=== PATIENT | female | born 1990 | race Caucasian/White ===

== ENCOUNTER → 2018-12-13 09:10 | Outpatient (CLI) | payer BC, SELFPAY ==
[2018-12-13 08:07] VITALS: BMI 32.4
[2018-12-13 09:50] VITALS: BP 98/31; PULSE 64; RESP 16; TEMP 36.6; O2SAT 98; BMI 26.9
[2018-12-13] MEDS: Dextrose 5%-Lactated Ringers 1,000 ML 999 ML IV (09:53)
[2018-12-13 10:16] LABS: Absolute Lymphocyte Count 1.66 X10^3/ul (0.83-4.51); Absolute Neutrophil Count 5.8 X10^3/uL (2.0-7.7); Basophil# 0.03 X10^3/uL; Basophil% 0.4 % (0-1); Eosinophil# 0.09 X10^3/uL; Eosinophils% 1.1 % (0-5); Hematocrit 38.8 % (37-47); Hemoglobin 13.5 g/dl (12.0-15.0); Lymphocyte # 1.66 X10^3/ul (4.0); Lymphocyte % 20.2 % (19-41); Mean Corp Hgb Conc 34.8 g/gl (32-36); Mean Corpuscular Hgb 30.9 pg (27.0-32.0); Mean Corpuscular Volume 88.8 fL (81-99); Mean Platelet Vol. 10.4 fl (6.2-12.0); Monocyte# 0.64 X10^3/uL; Monocyte% 7.8 % (0-10); Neutrophil # 5.78 X10^3/uL (2.7-7.7); Neutrophil % 70.3 % (47-70); Platelet Count 219 K/mm3 (150-450); RBC Distribution Width CV 12.1 % (11.6-14.6); RBC Distribution Width SD 38.6 fl (35.1-43.9); Red Blood Count 4.37 M/mm3 (4.2-5.4); White Blood Count 8.2 K/mm3 (4.4-11.0)
[2018-12-13 10:19] LABS: POSITIVE COUNT NO; POSITIVE DIFFERENTIAL NO; POSITIVE MORPHOLOGY NO
[2018-12-13] MEDS: Ondansetron 4 MG/2 ML Vial IV (10:53)
[2018-12-13 11:35] LABS: HIV - WCH Non-Reactive (Nonreactive); Rubella IgG 121.6 IU/mL
[2018-12-13 15:19] LABS: Chlamydia Trachomatis by PCR Negative (Negative); Neisserai gonorrhoeae by PCR Negative (Negative); Probe Check PASS; Sample Adequacy Control PASS; Specimen Processing Control PASS
[2018-12-14 15:25] LABS: HEPATITIS B SURFACE AG Negative (Negative)
[2018-12-17 07:38] LABS: Rapid Plasmin Reagin (RPR) NONREACTIVE (NONREACTIVE)
== END ==
LOC: LAB 09:41 → MEDOUTP 09:42
PROVIDERS: Family Provider Internal Medicine; PCP Internal Medicine; Referring Provider Obstetrics & Gynecology; Visit Provider Obstetrics & Gynecology
DX: O26.891 Other specified pregnancy related conditions, first trimester (principal); E86.0 Dehydration; Z3A.00 Weeks of gestation of pregnancy not specified; Z34.81 Encounter for supervision of other normal pregnancy, first trimester
CPT/HCPCS: 96361; 96374; 36415; 85025; 86592; 86703; 86762; 86850; 86900; 87086; 87088; 87340; 87491; 87591; A4216; J2405

== ENCOUNTER → 2018-12-13 09:32 | Outpatient (CLI) | payer BC, SELFPAY ==
[2018-12-13 08:07] VITALS: BMI 32.4
[2018-12-13 09:41] VITALS: BP 98/31; PULSE 64; RESP 16; TEMP 36.6; O2SAT 98; BMI 26.9
== END ==
PROVIDERS: Family Provider Internal Medicine; PCP Internal Medicine; Visit Provider Obstetrics & Gynecology
DX: E86.0 Dehydration (principal)

== ENCOUNTER → 2019-01-05 12:13 | Outpatient (CLI) | payer BC, SELFPAY ==
[2018-12-13 09:50] VITALS: BMI 26.9
== END ==
PROVIDERS: Family Provider Internal Medicine; PCP Internal Medicine; Referring Provider Obstetrics & Gynecology; Visit Provider Obstetrics & Gynecology
DX: Z34.81 Encounter for supervision of other normal pregnancy, first trimester (principal); Z31.430 Encounter of female for testing for genetic disease carrier status for procreative management
CPT/HCPCS: 36415

== ENCOUNTER → 2019-02-04 14:17 | Outpatient (CLI) | payer BC, SELFPAY ==
[2019-01-10 08:32] VITALS: BMI 26.9
[2019-02-04] MEDS: Dextrose 5%-Lactated Ringers 1,000 ML 999 ML IV (14:41)
[2019-02-04] MEDS: Ondansetron 4 MG/2 ML Vial IV (14:45)
[2019-02-04 14:47] VITALS: BP 92/49; PULSE 76; RESP 16; TEMP 36.3; O2SAT 98; BMI 28.2
== END ==
PROVIDERS: Family Provider Internal Medicine; PCP Internal Medicine; Visit Provider Obstetrics & Gynecology
DX: E86.0 Dehydration (principal)
CPT/HCPCS: 96361; 96374; A4216; J2405

== ENCOUNTER → 2019-02-08 16:03 | Outpatient (CLI) | payer BC, SELFPAY ==
[2019-02-08 15:44] VITALS: BMI 28.2
== END ==
PROVIDERS: Family Provider Internal Medicine; PCP Internal Medicine; Referring Provider Nurse Practitioner Women's Health; Visit Provider Nurse Practitioner Women's Health
DX: Z36.9 Encounter for antenatal screening, unspecified (principal)
CPT/HCPCS: 36415

== ENCOUNTER → 2019-05-04 | Outpatient (CLI) | payer BC, SELFPAY ==
[2019-05-04 14:56] VITALS: BMI 28.2
[2019-05-04 17:23] LABS: Absolute Lymphocyte Count 1.88 X10^3/ul (0.83-4.51); Absolute Neutrophil Count 5.8 X10^3/uL (2.0-7.7); Basophil# 0.04 X10^3/uL; Basophil% 0.5 % (0-1); Eosinophil# 0.25 X10^3/uL; Eosinophils% 2.9 % (0-5); Hematocrit 34.8 % (37-47); Hemoglobin 12.1 g/dl (12.0-15.0); Lymphocyte # 1.88 X10^3/ul (4.0); Lymphocyte % 21.7 % (19-41); Mean Corp Hgb Conc 34.8 g/gl (32-36); Mean Corpuscular Hgb 31.8 pg (27.0-32.0); Mean Corpuscular Volume 91.3 fL (81-99); Mean Platelet Vol. 10.2 fl (6.2-12.0); Monocyte# 0.63 X10^3/uL; Monocyte% 7.3 % (0-10); Neutrophil # 5.81 X10^3/uL (2.7-7.7); Neutrophil % 66.9 % (47-70); Platelet Count 177 K/mm3 (150-450); RBC Distribution Width CV 13.1 % (11.6-14.6); RBC Distribution Width SD 42.4 fl (35.1-43.9); Red Blood Count 3.81 M/mm3 (4.2-5.4); White Blood Count 8.7 K/mm3 (4.4-11.0)
[2019-05-04 17:48] LABS: POSITIVE COUNT NO; POSITIVE DIFFERENTIAL NO; POSITIVE MORPHOLOGY NO
[2019-05-04 17:53] LABS: Glucose Challenge Gest 1H 50g 142 mg/dL (70-140)
== END | disposition home or self-care (01) ==
LOC: LAB 15:37
PROVIDERS: Family Provider Internal Medicine; PCP Internal Medicine; Referring Provider Obstetrics & Gynecology; Visit Provider Obstetrics & Gynecology
DX: Z34.93 Encounter for supervision of normal pregnancy, unspecified, third trimester (principal)
CPT/HCPCS: 36415; 82950; 85025

== ENCOUNTER → 2019-05-06 | Outpatient (CLI) | payer BC, SELFPAY ==
[2019-05-04 14:56] VITALS: BMI 28.2
[2019-05-06 08:41] LABS: Glucose GTT-Gestation. Fasting 77 mg/dL (<105)
[2019-05-06 09:08] LABS: Glucose GTT-Gestational 1 Hr 158 mg/dL (<190)
[2019-05-06 09:52] LABS: Glucose GTT-Gestational 2 Hr 130 mg/dL (<165)
[2019-05-06 11:33] LABS: Glucose GTT-Gestational 3 Hr 117 L (<145)
== END | disposition home or self-care (01) ==
LOC: LAB 06:46
PROVIDERS: Nurse Practitioner Women's Health; Family Provider Internal Medicine; PCP Internal Medicine; Referring Provider Obstetrics & Gynecology; Visit Provider Obstetrics & Gynecology
DX: O99.810 Abnormal glucose complicating pregnancy (principal); Z3A.00 Weeks of gestation of pregnancy not specified
CPT/HCPCS: 36415; 82951; 82952

== ENCOUNTER → 2019-06-29 | Outpatient (CLI) | payer BC, SELFPAY ==
[2019-06-15 12:03] VITALS: BMI 28.2
--- NOTE | 2019-06-29 07:50 | US_ITS ---
STUDY: SECOND AND THIRD TRIMESTER OBSTETRICAL ULTRASOUND - LIMITED REASON FOR EXAM: Female, 29 years old. Routine survey. LMP: October 19, 2018. PRIOR ULTRASOUND: None. TECHNIQUE: Transabdominal TECHNICAL QUALITY: Adequate. FINDINGS: There is a single intrauterine fetus. The fetus is in a cephalic presentation. There is demonstrated cardiac activity with a heart rate of 143 bpm. There is a normal amniotic fluid volume. The largest amniotic fluid pocket measures 3.9 cm x 7.2 cm. The amniotic fluid index (ANUJ) is 14.77 cm. The placenta is anterior in location and is not low lying. There are Grade 1 placental changes. The cervix measures 4.1 cm in length. BIOMETRY: BPD: 8.99 cm: 36 weeks, 3 days HC: 32.16 cm: 36 weeks, 3 days AC: 34.66 cm: 38 weeks, 4 days FL: 7.01 cm: 36 weeks, 0 days Age by LMP: 36 weeks, 2 days. JESUS by LMP: July 26, 2019. age by prior US: 36 weeks, 2 days. JESUS by prior US: July 26, 2019. age by current US: 36 weeks, 6 days. JESUS by current US: July 21, 2019. Estimated weight: 3213 grams, +/- 464 grams, 85 percentile. US/OB Limited With Biometrics IMPRESSION: Single live intrauterine gestation with a mean gestational age of 36 weeks and 2 days. The measurements obtained today fall within the normal expected range. Electronically Signed: Salvador Zhao, at 10:02 EDT , Service support ,
== END | disposition home or self-care (01) ==
LOC: OPUS 07:48
PROVIDERS: Family Provider Internal Medicine; PCP Internal Medicine; Referring Provider Nurse Practitioner Women's Health; Visit Provider Nurse Practitioner Women's Health
DX: Z87.59 Personal history of other complications of pregnancy, childbirth and the puerperium (principal)
CPT/HCPCS: 76816

== ENCOUNTER → 2019-07-01 | Outpatient (CLI) | payer BC, SELFPAY ==
[2019-07-01 15:32] VITALS: BMI 28.2
== END | disposition home or self-care (01) ==
LOC: LABSPEC 16:44
PROVIDERS: Family Provider Internal Medicine; PCP Internal Medicine; Referring Provider Obstetrics & Gynecology; Visit Provider Obstetrics & Gynecology
DX: O09.90 Supervision of high risk pregnancy, unspecified, unspecified trimester (principal); Z3A.00 Weeks of gestation of pregnancy not specified
CPT/HCPCS: 87081

== ENCOUNTER 2019-07-15 23:55 | Inpatient (IN) | payer BC, SELFPAY ==
[2019-06-15 12:03] VITALS: BMI 28.2
[2019-07-12 09:22] VITALS: BMI 36.0
[2019-07-15 23:46] VITALS: BMI 36.2
[2019-07-16] MEDS: Lactated Ringers 1,000 ML 50 ML IV (00:05)
[2019-07-16] MEDS: Lactated Ringers 500 ML 999 ML IV (00:15)
[2019-07-16 00:22] LABS: Absolute Lymphocyte Count 2.34 X10^3/uL (0.83-4.51); Absolute Neutrophil Count 6.1 X10^3/uL (2.0-7.7); Basophil# 0.05 X10^3/uL; Basophil% 0.5 % (0-1); Eosinophil# 0.24 X10^3/uL; Eosinophils% 2.5 % (0-5); Hemoglobin 12.3 g/dL (12.0-15.0); Lymphocyte # 2.34 X10^3/ul (4.0); Lymphocyte % 24.1 % (19-41); Mean Corp Hgb Conc 34.2 g/dL (32-36); Mean Corpuscular Hgb 30.8 pg (27.0-32.0); Mean Corpuscular Volume 90.2 fL (81-99); Monocyte# 0.93 X10^3/uL; Monocyte% 9.6 % (0-10); NRBC Flagged by Analyzer 0 % (0-5); Neutrophil # 6.06 X10^3/uL (2.7-7.7); Neutrophil % 62.5 % (47-70); Platelet Count 142 K/mm3 (150-450); RBC Distribution Width CV 12.5 % (11.6-14.6); RBC Distribution Width SD 40.9 fl (35.1-43.9); Red Blood Count 3.99 M/mm3 (4.2-5.4); White Blood Count 9.7 K/mm3 (4.4-11.0)
[2019-07-16] MEDS: fentaNYL-bupivacaine (epidural) 100 ML BAG EPIDURAL (01:14)
[2019-07-16] MEDS: Oxytocin 30 units/NS 500 ml 30 UNITS/500 ML IV.SOLN 334 UNITS IV (02:28)
--- NOTE | 2019-07-16 03:21 | PCM.HP.OB ---
- Problem List (1) Active labor at term Status: Acute (2) Contraception management Status: Acute Qualifiers: Comment: IUD 6 wk pp. No prior auth needed (3) Abnormal glucose affecting Status: Acute Comment: normal 3 hr. GTT (4) Status: Acute Qualifiers: Comment: NIPT- low risk, horizon- neg. AFP-negative. normal anatomy (5) Supervision of high-risk Status: Acute Qualifiers: Comment: PRR JESUS 07/26/19 PC [place] Gil (6) History of oligohydramnios Status: Acute Comment: 36 week ultrasound (7) Nausea/vomiting in Status: Acute Comment: PRN reglan and meclizine, PRN zofran, failed phenergan. discussed interaction with zoloft- will alternate zofran and reglan. would try compaine next if no improvement. History Date of Admission: 07/16/19 Final JESUS: 07/26/19 Gestational age: 38 Weeks and 4 Days History of this : This is a 29 year-old, at 38 weeks gestational age since in active labor 5 cm dilated with spontaneous rupture of membranes. Patient does have regular contractions and no vaginal bleeding and good movement. Patient has had an uncomplicated .. Medical History: Medical History (Last Reviewed 07/12/19 @ 09:22 by Quin Lopez) Abnormal Pap smear of cervix R87.619 Surgical History: Surgical History (Last Reviewed 07/12/19 @ 09:22 by Quin Lopez) History of wisdom tooth extraction, class II edentulism K08.492 Allergies egg Allergy (Verified 07/15/19 23:43) Swelling Home Medications: Home Medications vitamin#30 30 mg iron-10 mg iron-folic acid 1 mg-omg3 capsule 1 cap PO DAILY cap 12/13/18 sertraline 100 mg tablet 125 mg PO DAILY 12/13/18 ranitidine 150 mg tablet 150 mg PO BID #60 tab 04/06/19 metoclopramide 10 mg tablet 10 mg PO TID PRN #60 tab 05/31/19 Meclizine HCl 25 mg PO DAILY 07/15/19 Smoking Status: Never smoker Alcohol: None Number of Fetus(es): 1 NST - FHR Rate Baby A Baseline: 130 Variability:: Moderate Accelerations:: 15 x 15 Decelerations:: None NST Reactive:: Yes FHR Category:: Category I - q 2-3 History Past Pregnancies: Past Pregnancies Pregancy History 2 Elective abortions Hx Para 1 Spontaneous abortions Hx # Term Pregnancies 1 Ectopic pregnancies Hx # Pregnancies Multiple births # of living children 1 Past Pregnancies Del. Date Name GA/Weeks Outcome Route Bth Weight [facility] 2016 [place] 36 live - full term 5lbs 1 ounces Female RAIN Delivery Date: On 12/13/18 @ 08:26 Jacqueline Alexander oligo Labs: Mom's Labs & Results 07/16/19 07/16/19 00:05 00:05 WBC 9.7 RBC 3.99 L Hgb 12.3 Hct 36.0 L MCV 90.2 MCH 30.8 MCHC 34.2 RDW Std Deviation 40.9 RDW Coeff of Reynaldo 12.5 Plt Count 142 L MPV 11.0 Immature Gran % (Auto) 0.800 Neut % (Auto) 62.5 Lymph % (Auto) 24.1 [place] % (Auto) 9.6 Eos % (Auto) 2.5 Baso % (Auto) 0.5 Absolute Neuts (auto) 6.1 Absolute Lymphs (auto) 2.34 Nucleated RBC % 0 Blood Type B POSITIVE Antibody Screen NEGATIVE Course Did the patient receive Yes care? Labs Blood Type: B RH: POSITIVE RPR/VDRL/Syphilis Nonreactive Rubella status Immune HbSAg Negative Date Done: 12/13/18 Chlamydia Negative Gonorrhea Negative HIV/AIDS Non-Reactive Group B Strep: Negative Current Obstetrical History Gestational Diabetes No Incompetent Cervix No Infertility No IUGR No Macrosomia No Hypertension/Pre-eclampsia No Placenta Previa/Abruption No PTL/PROM No Uterine anomaly No Oligohydramnios No Polyhydramnios No Multiple gestation No Past Medical History Asthma No Diabetes No Hypertension No Heart disease No Mitral valve prolapse No Neurologic/Seizure disorder/ No Migraines Kidney disease No Liver disease No Varicosities No Clotting disorders/Hx of DVT No Thyroid Dysfunction No Other medical diseases No Psychiatric disorders No Major trauma No Abnormal PAP smear Yes: history 4-5 years ago Sleep apnea No Mammogram in the last 2 years No Social History Marital Status: Alleged father Gil Hx Smoking No Smoking Status Never smoker Expected Delivery Method: Spontaneous Vaginal Review of Systems Constitutional: Denies: Fever, Malaise Eyes: Denies: Blurred vision, Vision Change HEENT: Denies: Head Aches, Visual Changes Cardiovascular: Denies: Chest Pain, Palpitations Respiratory: Denies: Cough, Shortness of Breath, Wheezing Gastrointestinal: Denies: Abdominal Pain, Diarrhea, Nausea, Vomiting Genitourinary: Denies: Dysuria, Hematuria Gynecological: Reports: Vaginal discharge Musculoskeletal: Denies: Joint Pain, Muscle pain Skin: Denies: Lesions, Rash Neurological: Denies: Blurred vision, Focal weakness, Headaches Psychiatric: Denies: Anxiety, Depression Endocrine: Denies: Heat/ Cold Intolerance Hematologic/ Lymphatic: Denies: Easy Bruising, Easy Bleeding Physical Exam General: Alert, Cooperative, No apparent distress HEENT: Atraumatic, Normocephalic. Negative for: Thyromegaly, Lymphadenopathy Cardiovascular: Regular rate Lungs: Normal air movement Abdomen: Soft, Non Tender, Gravid Neurological: Deep Tendon Reflexes 2+/4 and Symmetrical, Neuro grossly intact. Negative for: Clonus STEEPLE JACK: Normal external genitalia. Negative for: Vulvar lesions Estimated gestational size: Appropriate for gestational size Presentation: Cephalic Cervix Dilation (cm): 5 Assessment/Plan All Active Problems (Last Reviewed 07/12/19 @ 09:22 by Quin Lopez) Active labor at term (Acute) Contraception management (Acute) Abnormal glucose affecting (Acute) Hypotension (Acute) (Acute) Supervision of high-risk (Acute) History of oligohydramnios (Acute) Nausea/vomiting in (Acute) This is a 29 year-old, at 38 weeks gestational age resents in active labor. Patient presents IAL, plan expectant management for , pitocin PRN if needed. Pain management: Plans epidural. GBS negative. Management of any complications: None I have reviewed the [facility] and made any clinically relevant updates.
--- NOTE | 2019-07-16 03:24 | PCM.OPRPT ---
Problem List (1) Active labor at term Status: Acute (2) Contraception management Status: Acute Qualifiers: Comment: IUD 6 wk pp. No prior auth needed (3) Abnormal glucose affecting Status: Acute Comment: normal 3 hr. GTT (4) Status: Acute Qualifiers: Comment: NIPT- low risk, horizon- neg. AFP-negative. normal anatomy (5) Supervision of high-risk Status: Acute Qualifiers: Comment: PRR JESUS 07/26/19 PC [place] Gil (6) History of oligohydramnios Status: Acute Comment: 36 week ultrasound (7) Nausea/vomiting in Status: Acute Comment: PRN reglan and meclizine, PRN zofran, failed phenergan. discussed interaction with zoloft- will alternate zofran and reglan. would try compaine next if no improvement. Vaginal Delivery Maternal Presentation: Active Labor 38 week active labor Amniotic Membrane Rupture Type: Spontaneous Amniotic Fluid Description: Clear Final JESUS: 07/26/19 Gestational age: 38 Weeks and 4 Days Date of Procedure: 07/16/19 Pre-Operative Diagnosis: ial Post-Operative Diagnosis: same Surgery/ Procedure Performed: Spontaneous Vaginal Delivery Type of Anesthesia: Epidural, Pudendal block with 1% lidocaine Description of Procedure: Patient progressed quickly and did receive an epidural but it was inadequate and therefore the vagina was prepped and pudendal block was placed. Bilateral ischial spines were located and 2 cm medial and posterior through the sacrospinous ligament 10 cc of lidocaine was injected bilaterally using Howard trumpet to guide application. Patient began pushing and delivered the head in the ASHLEY presentation. The head was delivered atraumatically. The anterior and posterior shoulders delivered without complication followed by the rest of the and the was placed on the maternal abdomen. Delayed cord clamping was employed for approximately 60 seconds. Cord was clamped and cut and gentle traction was applied to the cord and the placenta delivered spontaneously immediately following it was noted to be intact with three-vessel cord. The perineum and vagina were inspected and noted to have no laceration. EBL was 300 cc. Patient and infant tolerated delivery well. Presentation: ASHLEY Placental Delivery Description: Spontaneous Placenta Disposition: [facility] Cord Vessel Description: 3 Vessels Cord Entanglement: None Estimated Blood Loss: 300 Infant A gender: Female Episiotomy Description: None Laceration: None Medications given after delivery: IV Pitocin Complications: None
[2019-07-16] MEDS: 0.9% Saline Lock 10 ML Syringe IV (05:40)
[2019-07-16 10:00] VITALS: BP 100/59; PULSE 57; RESP 20; TEMP 37.1; O2SAT 97
[2019-07-16] MEDS: Senna/Docusate Sodium 1 Tablet PO (10:24)
[2019-07-16] MEDS: Sertraline 50 MG Tablet 125 MG PO (10:25)
[2019-07-16] MEDS: Prenatal Vits Tablet 1 TABLET PO (10:25)
--- NOTE | 2019-07-16 11:30 | NURSING ---
Baby transferred to Special care nursery for high respirations.
[2019-07-16 12:50] VITALS: BP 114/59; PULSE 69; RESP 20; TEMP 36.6; O2SAT 97
[2019-07-16 17:30] VITALS: BP 111/59; PULSE 72; TEMP 36.7; O2SAT 96
[2019-07-16 19:31] VITALS: BP 116/69; PULSE 72; RESP 18; TEMP 36.3
--- NOTE | 2019-07-16 19:40 | NURSING ---
Mother transferred to room 3
[2019-07-17 00:50] VITALS: BP 90/47; PULSE 61; RESP 18; TEMP 36.6
--- NOTE | 2019-07-17 05:44 | PCM.PN.OB ---
Patient Problems: Active and Suspected Problems (Last Reviewed 07/12/19 @ 09:22 by Quin Lopez) Active labor at term (Acute) Subjective: doing well no complaints pain controlled no CP SOB N V ambulating well tolerating po lochia moderate, going well - Physical Exam General: Alert, Oriented x3 Vital Signs Temp Pulse Resp BP Pulse Ox 97.8 F 61 18 90/47 L 96 07/17/19 00:50 07/17/19 00:50 07/17/19 00:50 07/17/19 00:50 07/16/19 17:30 Oxygen Delivery Method Room Air Weight: 224 lb 8 oz Body Mass Index (BMI) 36.2 Intake and Output for Last 24 Hours 07/15/19 07/16/19 07/17/19 23:59 23:59 23:59 Intake Total 1351.16 / 1351.16 Balance 1351.16 / 1351.16 Medical Necessity - Tobacco Use Smoking Status: Never smoker Assessment/Plan All Active Problems (Last Reviewed 07/12/19 @ 09:22 by Quin Lopez) Active labor at term (Acute) Contraception management (Acute) Abnormal glucose affecting (Acute) Hypotension (Acute) (Acute) Supervision of high-risk (Acute) History of oligohydramnios (Acute) Nausea/vomiting in (Acute) s/p PPD # 1 1. routine post delivery care 2. breast feeding- support given 3. rh positive 4. rubella immune
--- NOTE | 2019-07-17 05:45 | DCINST_ITS ---
Discharge Diet: No Restrictions Discharge Activity: Return to Normal Activity, May not drive while taking narcotic pain medications., May Shower May resume sexual activity in: 4-6 weeks Call your doctor if your incision/area has: Continuous Slow Oozing, Sudden Increased Bleeding, Increased Pain/ Swelling, Increased Redness, Foul Smelling Discharge Additional Instructions: If you experience any of the following, contact your healthcare provider. * Bleeding that soaks a pad every hour for 2 hours * Fever 100.4 or higher * Unrelieved incision or abdominal pain * Swelling, redness, discharge or bleeding from your incision or episiotomy site * Your incision begins to separate * Problems urinating (including inability to urinate or burning while urinating). * Visual changes * Severe headache * Flu-like symptoms * Pain or redness in one of both of your breasts * Pain, warmth, tenderness or swelling in your legs, especially the calf area * Frequent nausea and vomiting * Symptoms of depression or anxiety If you experience any of the following, call 911 or go to the nearest Emergency Room. * Chest pain * Problems breathing * Seizure activity * Partial or complete paralysis of a body part, slurred speech, weakness or drooping of the face, or a sudden inability to walk or hold your balance Allergies/Adverse Reactions: Allergies egg Allergy (Verified 07/15/19 23:43) Swelling Medications to take at Discharge vitamin#30 30 mg iron-10 mg iron-folic acid 1 mg-omg3 capsule 1 cap PO DAILY cap 12/13/18 sertraline 100 mg tablet 125 mg PO DAILY 12/13/18 ranitidine 150 mg tablet 150 mg PO BID #60 tab 04/06/19 metoclopramide 10 mg tablet 10 mg PO TID PRN #60 tab 05/31/19 Meclizine HCl 25 mg PO DAILY 07/15/19 Please Follow Up With: Jacqueline Alexander MD - [phone] When: Call to make an appointment with your doctor in 6 weeks. If you had elevated Blood pressure or 4th degree laceration you will need to be seen in 2 weeks. Primary Care Physician: Jimena Iglesias MD [Primary Care Provider] - Test Results: Test results from this visit will be discussed in further detail at your follow- up appointment, if applicable.
[2019-07-17 09:30] VITALS: BP 118/56; PULSE 79; RESP 16; TEMP 36.4; O2SAT 99
[2019-07-17] MEDS: Sertraline 50 MG Tablet 125 MG PO (10:04)
[2019-07-17 13:06] VITALS: BP 111/54; PULSE 63; RESP 16; TEMP 37.2; O2SAT 99
[2019-07-17 21:30] VITALS: BP 113/56; PULSE 67; RESP 16; TEMP 36.8
[2019-07-18 02:30] VITALS: BP 120/71; PULSE 60; RESP 16; TEMP 36.4
[2019-07-18 08:10] VITALS: BP 108/54; PULSE 58; RESP 14; TEMP 36.6
--- NOTE | 2019-07-18 08:25 | PCM.PN.OB ---
Patient Problems: Active and Suspected Problems (Last Reviewed 07/12/19 @ 09:22 by Quin Lopez) Active labor at term (Acute) Subjective: doing well no complaints pain controlled no CP SOB N V ambulating well tolerating po lochia moderate, going well - Physical Exam General: Alert, Oriented x3 Vital Signs Temp Pulse Resp BP Pulse Ox 97.6 F L 60 16 120/71 99 07/18/19 02:30 07/18/19 02:30 07/18/19 02:30 07/18/19 02:30 07/17/19 13:06 Oxygen Delivery Method Room Air Weight: 224 lb 8 oz Body Mass Index (BMI) 36.2 Intake and Output for Last 24 Hours 07/16/19 07/17/19 07/18/19 23:59 23:59 23:59 Intake Total 1351.16 / 1351.16 Balance 1351.16 / 1351.16 Medical Necessity - Tobacco Use Smoking Status: Never smoker Assessment/Plan All Active Problems (Last Reviewed 07/12/19 @ 09:22 by Quin Lopez) Active labor at term (Acute) Contraception management (Acute) Abnormal glucose affecting (Acute) Hypotension (Acute) (Acute) Supervision of high-risk (Acute) History of oligohydramnios (Acute) Nausea/vomiting in (Acute) s/p PPD # 2 1. routine post delivery care 2. breast feeding- support given 3. rh positive 4. rubella immune
[2019-07-18] MEDS: Sertraline 50 MG Tablet 125 MG PO (10:44)
[2019-07-18] MEDS: Prenatal Vits Tablet 1 TABLET PO (10:44)
[2019-07-18 14:15] VITALS: BP 112/60; PULSE 86; RESP 16; TEMP 37.2
--- NOTE | 2019-07-20 09:33 | CASEMGMT ---
Social Work Labor and Delivery Unit Date of Intervention:?07/20/2019 Time of Intervention:?919 ? Reason for Referral:?Baby admitted to [facility] for respiratory distress; social work identification of patient with prescribed antidepressant. ? Informant: ?Medical records and patient/mother of baby (MOB) Maria A Carter. (Educated MOB that this health underwriter is the high school social studies teacher for [facility] labor and delivery unit, and for continuity of care also the assigned high school social studies teacher to the [facility]). History MOB is G2, P1 to 2 after delivering baby girl Jumana Carter on 07-16-2019. Jumana admitted to the [facility] due to respiratory distress issues. MOB is Maria A (age 29) and father of baby (FOB) is Ronnie Carter. ?Parents are and have one other child at home, [place] who was born in 2017 at 36 weeks gestation. ??Jumana was born at 38 weeks, weighed 3617 grams at and Apgars 8-8-10 at 1-5-10 minutes of life. ?MOB reports was prescribed Zoloft during this and that has had history of anxiety. MOB reports that it took about 2 years of experiencing anxiety to finally let the doctor know and get some support. MOB reports has found it helpful to let others know when having anxiety or worry, as well as taking the Zoloft. 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 ? Impression Spoke briefly with MOB in the SCN. MOB has already been discharged from [facility] labor and delivery unit on 07-18-2019 MOB was smiling today 07-20-2019. Affect and mood appropriate and congruent. MOB reporting to be happy to go home with baby and relaxed in motor activity. ??MOB reports to have all needed supplies to care for the baby, will have 12 weeks off of work, and will have help from baby's maternal grandmother who is visiting and then from [facility]. ??MOB reports to feel support is adequate. ?MOB plans to stay on Zoloft in the period and engaged in conversation about risk factors for depression and anxiety, as well as voiced that MOB's OBGYN has talked to MOB about being a risk for . ???MOB receptive to having a depression packet that includes signs/symptoms to look for, online resources as well as local numbers to call. MOB denies any needs for home going and no reports by [facility] or [facility] nursing staff regarding any concerns regarding mother/child interactions or bonding. ?? ? Plan MOB has already been discharged but given resource information for home going related to depression and resources for such. ? No other needs have been identified or requested. ?? ? YAQUELIN Baker ?
== END 2019-07-18 16:55 | disposition home or self-care (01) | DRG 807 ==
LOC: WPOUT 23:57
PROVIDERS: Admitting Provider Obstetrics & Gynecology; Family Provider Internal Medicine; PCP Internal Medicine; Visit Provider Obstetrics & Gynecology
DX: O80 Encounter for full-term uncomplicated delivery (principal); Z37.0 Single live birth; Z3A.38 38 weeks gestation of pregnancy
CPT/HCPCS: 59025; 59050; 85025; 86850; 86900; 86901; 99218; J7120; A4216; G0378

== ENCOUNTER → 2019-08-30 | Outpatient (CLI) | payer BC, SELFPAY ==
[2019-08-30 15:23] VITALS: BMI 36.2
[2019-09-02 16:03] LABS: HPV APTIMA, High Risk Negative (Negative)
== END | disposition home or self-care (01) ==
PROVIDERS: Family Provider Internal Medicine; PCP Internal Medicine; Referring Provider Nurse Practitioner Women's Health; Visit Provider Nurse Practitioner Women's Health
DX: Z12.4 Encounter for screening for malignant neoplasm of cervix (principal)
CPT/HCPCS: 87624; 88175; G0145

== ENCOUNTER → 2019-11-07 07:52 | Outpatient (CLI) | payer BC, SELFPAY ==
[2019-11-01 13:21] VITALS: BMI 36.2
--- NOTE | 2019-11-07 07:54 | US_ITS ---
STUDY: ULTRASOUND OF THE FEMALE PELVIS - COMPLETE REASON FOR EXAM: Female, 29 years old. pelvic pain LEFT -- pt has IUD LMP: 08/27/2019 TECHNIQUE: Transvaginal TECHNICAL QUALITY: Adequate. COMPARISON: None. FINDINGS: The uterus is anteverted and is in a midline position. The uterus measures 6.0 x 5.9 x 3.7 cm. Normal uterine cervix. The endometrium measures 2 mm in thickness, and is hyperechoic. There is no demonstrated endometrial mass. There is no demonstrated myometrial mass. I.U.D. - The patient does have an I.U.D. The right ovary is visualized. The right ovary measures 4.5 x 3.3 x 3.0 cm. There is no right ovarian cyst or ovarian mass. There is no visualized right adnexal mass or complex lesion. There is normal arterial and normal venous vascularity. The left ovary is visualized. The left ovary measures 5.4 x 3.3 x 2.5 cm. 3 cm dominant follicle of the left ovary. There is no visualized left adnexal mass or complex lesion. There is normal arterial and normal venous vascularity. There is minimal fluid in the cul-de-sac. The pre void volume of the bladder was ml. The post void volume of the bladder was ml. Polycystic ovary disease: No. US/Transvaginal Non- IMPRESSION: Normal female pelvis. Electronically Signed: Dk Garcia MD at 13:54 EST Tel , Service support ,
--- NOTE | 2019-11-07 07:54 | US_ITS ---
STUDY: ULTRASOUND OF THE FEMALE PELVIS - COMPLETE REASON FOR EXAM: Female, 29 years old. pelvic pain LEFT -- pt has IUD LMP: 08/27/2019 TECHNIQUE: Transvaginal TECHNICAL QUALITY: Adequate. COMPARISON: None. FINDINGS: The uterus is anteverted and is in a midline position. The uterus measures 6.0 x 5.9 x 3.7 cm. Normal uterine cervix. The endometrium measures 2 mm in thickness, and is hyperechoic. There is no demonstrated endometrial mass. There is no demonstrated myometrial mass. I.U.D. - The patient does have an I.U.D. The right ovary is visualized. The right ovary measures 4.5 x 3.3 x 3.0 cm. There is no right ovarian cyst or ovarian mass. There is no visualized right adnexal mass or complex lesion. There is normal arterial and normal venous vascularity. The left ovary is visualized. The left ovary measures 5.4 x 3.3 x 2.5 cm. 3 cm dominant follicle of the left ovary. There is no visualized left adnexal mass or complex lesion. There is normal arterial and normal venous vascularity. There is minimal fluid in the cul-de-sac. The pre void volume of the bladder was ml. The post void volume of the bladder was ml. Polycystic ovary disease: No. US/Pelvic (Non ) IMPRESSION: Normal female pelvis. Electronically Signed: Dk Garcia MD at 13:54 EST Tel , Service support ,
== END ==
PROVIDERS: Family Provider Internal Medicine; PCP Internal Medicine; Referring Provider Obstetrics & Gynecology; Visit Provider Obstetrics & Gynecology
DX: R10.2 Pelvic and perineal pain (principal)
CPT/HCPCS: 76830; 76856; 93976

== ENCOUNTER → 2019-12-23 | Outpatient (CLI) | payer BC, SELFPAY ==
[2019-11-01 13:21] VITALS: BMI 36.2
--- NOTE | 2019-12-23 07:55 | US_ITS ---
STUDY: ULTRASOUND OF THE FEMALE PELVIS - COMPLETE REASON FOR EXAM: Female, 29 years old. Pain, history of ovarian cyst LMP: Unknown. TECHNIQUE: Transabdominal and Transvaginal TECHNICAL QUALITY: Adequate. COMPARISON: 11/07/2019 FINDINGS: The uterus is anteverted and is in a midline position. The uterus measures 6.7 x 6.4 x 3.6 cm. Normal uterine cervix. The endometrium measures 2.0 mm in thickness, and is hyperechoic. There is no demonstrated endometrial mass. There is no demonstrated myometrial mass. I.U.D. - The patient does have an I.U.D. IUD noted in satisfactory position The right ovary is visualized. The right ovary measures 3.0 x 1.9 x 1.6 cm. There is a complex 2.1 x 1.8 x 2.2 cm cyst.. There is normal arterial and normal venous vascularity. The left ovary is visualized. The left ovary measures 3 x 1.9 x 1.6 cm. There is no left ovarian cyst or ovarian mass. There is no visualized left adnexal mass or complex lesion. There is normal arterial and normal venous vascularity. There is minimal fluid in the cul-de-sac, likely physiologic. The bladder is sonographically normal US/Transvaginal Non- IMPRESSION: Complex right ovarian cyst new since the previous study. It measures 2.1 x 1.8 x 2.2 cm. Sonographically normal uterus and left ovary Minimal free fluid in the cul-de-sac is likely physiologic Electronically Signed: Gregorio Hawkins MD at 14:02 EST , Service support ,
--- NOTE | 2019-12-23 07:55 | US_ITS ---
STUDY: ULTRASOUND OF THE FEMALE PELVIS - COMPLETE REASON FOR EXAM: Female, 29 years old. Pain, history of ovarian cyst LMP: Unknown. TECHNIQUE: Transabdominal and Transvaginal TECHNICAL QUALITY: Adequate. COMPARISON: 11/07/2019 FINDINGS: The uterus is anteverted and is in a midline position. The uterus measures 6.7 x 6.4 x 3.6 cm. Normal uterine cervix. The endometrium measures 2.0 mm in thickness, and is hyperechoic. There is no demonstrated endometrial mass. There is no demonstrated myometrial mass. I.U.D. - The patient does have an I.U.D. IUD noted in satisfactory position The right ovary is visualized. The right ovary measures 3.0 x 1.9 x 1.6 cm. There is a complex 2.1 x 1.8 x 2.2 cm cyst.. There is normal arterial and normal venous vascularity. The left ovary is visualized. The left ovary measures 3 x 1.9 x 1.6 cm. There is no left ovarian cyst or ovarian mass. There is no visualized left adnexal mass or complex lesion. There is normal arterial and normal venous vascularity. There is minimal fluid in the cul-de-sac, likely physiologic. The bladder is sonographically normal US/Pelvic (Non ) IMPRESSION: Complex right ovarian cyst new since the previous study. It measures 2.1 x 1.8 x 2.2 cm. Sonographically normal uterus and left ovary Minimal free fluid in the cul-de-sac is likely physiologic Electronically Signed: Gregorio Hawkins MD at 14:02 EST , Service support ,
== END | disposition home or self-care (01) ==
LOC: OPUS 07:55
PROVIDERS: Family Provider Internal Medicine; PCP Internal Medicine; Referring Provider Nurse Practitioner Women's Health; Visit Provider Nurse Practitioner Women's Health
DX: N83.209 Unspecified ovarian cyst, unspecified side (principal)
CPT/HCPCS: 76830; 76856; 93976

== ENCOUNTER → 2020-02-06 | Outpatient (CLI) | payer BC, SELFPAY ==
[2019-11-01 13:21] VITALS: BMI 36.2
--- NOTE | 2020-02-06 13:16 | US_ITS ---
STUDY: ULTRASOUND OF THE FEMALE PELVIS - COMPLETE REASON FOR EXAM: Female, 29 years old. OV CYST -- IUD LMP: No LMP. TECHNIQUE: Transabdominal and Transvaginal TECHNICAL QUALITY: Adequate. COMPARISON: Comparison is made with prior study dated December 23, 2019. FINDINGS: The uterus is retroverted and is in a midline position. The uterus measures 6.2 cm x 5.1 cm x 3.9 cm. Normal uterine cervix. The endometrium measures 1.4 mm in thickness, and is hyperechoic. There is no demonstrated endometrial mass. There is no demonstrated myometrial mass. I.U.D. - The patient does have an I.U.D. The right ovary is visualized. The right ovary measures 4.2 cm x 2.6 x 2.0 cm. There is no right ovarian cyst or ovarian mass. There is no visualized right adnexal mass or complex lesion. There is normal arterial and normal venous vascularity. The left ovary is visualized. The left ovary measures 3.1 cm x 1.7 cm x 1.5 cm. There is no left ovarian cyst or ovarian mass. There is no visualized left adnexal mass or complex lesion. There is normal arterial and normal venous vascularity. There is no fluid in the cul-de-sac. The pre void volume of the bladder was 182 ml. Polycystic ovary disease: No. US/Transvaginal Non- IMPRESSION: Normal female pelvis. The previously seen right ovarian cyst as resolved. Electronically Signed: Salvador Zhao, at 14:20 EDT , Service support ,
--- NOTE | 2020-02-06 13:16 | US_ITS ---
STUDY: ULTRASOUND OF THE FEMALE PELVIS - COMPLETE REASON FOR EXAM: Female, 29 years old. OV CYST -- IUD LMP: No LMP. TECHNIQUE: Transabdominal and Transvaginal TECHNICAL QUALITY: Adequate. COMPARISON: Comparison is made with prior study dated December 23, 2019. FINDINGS: The uterus is retroverted and is in a midline position. The uterus measures 6.2 cm x 5.1 cm x 3.9 cm. Normal uterine cervix. The endometrium measures 1.4 mm in thickness, and is hyperechoic. There is no demonstrated endometrial mass. There is no demonstrated myometrial mass. I.U.D. - The patient does have an I.U.D. The right ovary is visualized. The right ovary measures 4.2 cm x 2.6 x 2.0 cm. There is no right ovarian cyst or ovarian mass. There is no visualized right adnexal mass or complex lesion. There is normal arterial and normal venous vascularity. The left ovary is visualized. The left ovary measures 3.1 cm x 1.7 cm x 1.5 cm. There is no left ovarian cyst or ovarian mass. There is no visualized left adnexal mass or complex lesion. There is normal arterial and normal venous vascularity. There is no fluid in the cul-de-sac. The pre void volume of the bladder was 182 ml. Polycystic ovary disease: No. US/Pelvic (Non ) IMPRESSION: Normal female pelvis. The previously seen right ovarian cyst as resolved. Electronically Signed: Salvador Zhao, at 14:20 EDT , Service support ,
== END | disposition home or self-care (01) ==
LOC: OPUS 13:16
PROVIDERS: PCP Internal Medicine; Referring Provider Nurse Practitioner Women's Health; Visit Provider Nurse Practitioner Women's Health
DX: R10.2 Pelvic and perineal pain (principal)
CPT/HCPCS: 76830; 76856

== ENCOUNTER → 2021-02-25 08:37 | Outpatient (CLI) | payer BC, SELFPAY ==
[2021-02-25 08:07] VITALS: BMI 33.4
[2021-02-25 09:30] LABS: hCG Titer Quant., Serum 50 mIU/mL (1-3)
== END ==
PROVIDERS: PCP Internal Medicine; Referring Provider Obstetrics & Gynecology; Visit Provider Obstetrics & Gynecology
DX: O03.9 Complete or unspecified spontaneous abortion without complication (principal)
CPT/HCPCS: 36415; 84702

== ENCOUNTER → 2021-02-27 06:32 | Outpatient (CLI) | payer BC, SELFPAY ==
[2021-02-25 08:07] VITALS: BMI 33.4
[2021-02-27 07:42] LABS: hCG Titer Quant., Serum 20 mIU/mL (1-3)
== END ==
PROVIDERS: PCP Internal Medicine; Referring Provider Obstetrics & Gynecology; Visit Provider Obstetrics & Gynecology
DX: O03.9 Complete or unspecified spontaneous abortion without complication (principal)
CPT/HCPCS: 36415; 84702

== ENCOUNTER 2021-02-28 15:06 | Outpatient (RCR) | payer BC, SELFPAY ==
[2021-02-25 08:07] VITALS: BMI 33.4
== END 2021-04-23 23:59 ==
LOC: IMMUN 15:06
PROVIDERS: PCP Internal Medicine; Referring Provider Family Medicine; Visit Provider Family Medicine
DX: Z23 Encounter for immunization (principal)
CPT/HCPCS: 0001A; 0002A; 91300

== ENCOUNTER → 2021-06-08 10:58 | Outpatient (CLI) | payer BC, SELFPAY ==
[2021-02-25 08:07] VITALS: BMI 33.4
[2021-06-08 12:52] LABS: hCG Titer Quant., Serum 1476 mIU/mL (1-3)
== END ==
PROVIDERS: PCP Internal Medicine; Visit Provider Obstetrics & Gynecology
DX: Z32.01 Encounter for pregnancy test, result positive (principal)
CPT/HCPCS: 36415; 84702

== ENCOUNTER → 2021-06-10 11:15 | Outpatient (CLI) | payer BC, SELFPAY ==
[2021-02-25 08:07] VITALS: BMI 33.4
[2021-06-10 13:28] LABS: hCG Titer Quant., Serum 3737 mIU/mL (1-3)
== END ==
PROVIDERS: PCP Internal Medicine; Referring Provider Obstetrics & Gynecology; Visit Provider Obstetrics & Gynecology
DX: Z32.01 Encounter for pregnancy test, result positive (principal)
CPT/HCPCS: 36415; 84702

== ENCOUNTER → 2021-06-19 14:07 | Outpatient (CLI) | payer BC, SELFPAY ==
[2021-02-25 08:07] VITALS: BMI 33.4
[2021-06-19 14:24] VITALS: BP 106/63; PULSE 61; RESP 16; TEMP 36; O2SAT 99; BMI 34.7
[2021-06-19] MEDS: Ondansetron 4 MG/2 ML Vial IV (14:52)
[2021-06-19] MEDS: Dextrose 5%-Lactated Ringers 1,000 ML 999 ML IV (14:53)
[2021-06-19 16:10] VITALS: BP 91/55; PULSE 51; RESP 16
== END ==
PROVIDERS: PCP Internal Medicine; Referring Provider Obstetrics & Gynecology; Visit Provider Obstetrics & Gynecology
DX: E86.0 Dehydration (principal)
CPT/HCPCS: 96361; 96374; A4216; J2405

== ENCOUNTER → 2021-06-21 12:11 | Outpatient (CLI) | payer BC, SELFPAY ==
[2021-06-19 14:24] VITALS: BMI 34.7
[2021-06-21 12:33] VITALS: BP 98/64; PULSE 75; RESP 16; TEMP 36.4; O2SAT 98; BMI 34.7
[2021-06-21] MEDS: Dextrose 5%-Lactated Ringers 1,000 ML 1000 ML IV (12:44)
[2021-06-21] MEDS: Ondansetron 4 MG/2 ML Vial IV (12:45)
[2021-06-21] MEDS: proMETHazine 25 MG/ML Syringe 12.5 MG IM (13:05)
[2021-06-21 14:04] VITALS: BP 99/58; PULSE 56; RESP 16; O2SAT 100
== END ==
PROVIDERS: PCP Internal Medicine; Referring Provider Nurse Practitioner Women's Health; Visit Provider Nurse Practitioner Women's Health
DX: E86.0 Dehydration (principal)
CPT/HCPCS: 96361; 96374; 96372; A4216; J2405

== ENCOUNTER → 2021-07-02 | Outpatient (CLI) | payer BC, SELFPAY ==
[2021-07-02 16:19] VITALS: BMI 34.7
[2021-07-02 18:42] LABS: Amphetamine Urine VISTA NEGATIVE (<1000 ng/mL); Barbiturate Urine VISTA NEGATIVE (< 200 ng/mL); Benzodiazepine Urine VISTA NEGATIVE (< 200 ng/mL); Cocaine Urine VISTA NEGATIVE (< 300 ng/mL); Ecstacy Urine VISTA NEGATIVE (< 500 ng/mL); Methadone Urine VISTA NEGATIVE (< 300 ng/mL); PCP Urine VISTA NEGATIVE (< 25 ng/mL); THC Urine VISTA NEGATIVE (< 50 ng/mL); Vista UDS pH Range 6
[2021-07-05 10:44] LABS: Chlamydia By Nucleic Acid AMP Negative (Negative)
[2021-07-05 10:53] LABS: Gonococcus By Nucleic Acid AMP Negative (Negative)
== END | disposition home or self-care (01) ==
LOC: LABSPEC 17:22
PROVIDERS: PCP Internal Medicine; Referring Provider Obstetrics & Gynecology; Visit Provider Obstetrics & Gynecology
DX: Z34.90 Encounter for supervision of normal pregnancy, unspecified, unspecified trimester (principal)
CPT/HCPCS: 80307; 87086; 87088; 87491; 87591

== ENCOUNTER → 2021-07-10 14:34 | Outpatient (CLI) | payer BC, SELFPAY ==
[2021-07-10 15:38] LABS: NATERA MAILED SPECIMEN
== END ==
PROVIDERS: PCP Internal Medicine; Visit Provider Obstetrics & Gynecology
DX: R69 Illness, unspecified (principal)
CPT/HCPCS: 36415

== ENCOUNTER → 2021-07-25 08:28 | Outpatient (CLI) | payer BC, SELFPAY ==
[2021-07-25 10:16] LABS: Absolute Neutrophil Count 6.4 X10^3/uL (2.0-7.7); Basophil# 0.05 X10^3/uL; Basophil% 0.6 % (0-1); Eosinophil# 0.23 X10^3/uL; Eosinophils% 2.6 % (0-5); Hematocrit 39.1 % (37-47); Hemoglobin 13.6 g/dL (12.0-15.0); Lymphocyte % 17.1 % (19-41); Mean Corp Hgb Conc 34.8 g/dL (32-36); Mean Corpuscular Hgb 30.7 pg (27.0-32.0); Mean Corpuscular Volume 88.3 fL (81-99); Mean Platelet Vol. 10.5 fl (6.2-12.0); Monocyte# 0.52 X10^3/uL; Monocyte% 5.9 % (0-10); NRBC Flagged by Analyzer 0 % (0-5); Neutrophil # 6.41 X10^3/uL (2.7-7.7); Neutrophil % 73.1 % (47-70); Platelet Count 197 K/mm3 (150-450); RBC Distribution Width SD 41.9 fl (35.1-43.9); Red Blood Count 4.43 M/mm3 (4.2-5.4); White Blood Count 8.8 K/mm3 (4.4-11.0)
[2021-07-25 10:39] LABS: Hemoglobin A1c 4.9 % (3.8-5.6)
[2021-07-25 10:43] LABS: Glucose Challenge Gest 1H 50g 153 mg/dL (70-140)
[2021-07-25 11:31] LABS: HIV - WCH Non-Reactive (Nonreactive); Hepatitis B Surface Antigen Non-Reactive (Nonreactive); Hepatitis C Antibody Non-Reactive (Nonreactive); Rubella IgG Reactive (Nonreactive); Syphilis Antibodies Non-reactive
== END ==
PROVIDERS: PCP Internal Medicine; Referring Provider Obstetrics & Gynecology; Visit Provider Obstetrics & Gynecology
DX: O99.210 Obesity complicating pregnancy, unspecified trimester (principal); O09.90 Supervision of high risk pregnancy, unspecified, unspecified trimester; Z3A.00 Weeks of gestation of pregnancy not specified
CPT/HCPCS: 36415; 82950; 83036; 85025; 86703; 86762; 86780; 86803; 86850; 86900; 86901; 87340

== ENCOUNTER → 2021-07-31 06:47 | Outpatient (CLI) | payer BC, SELFPAY ==
[2021-07-31 08:48] LABS: Glucose GTT-Gestational 1 Hr 113 mg/dL (<190)
[2021-07-31 08:50] LABS: Glucose GTT-Gestation. Fasting 79 mg/dL (<105)
[2021-07-31 10:58] LABS: Glucose GTT-Gestational 3 Hr 102 L (<145)
[2021-07-31 11:07] LABS: Glucose GTT-Gestational 2 Hr 120 mg/dL (<165)
== END ==
PROVIDERS: PCP Internal Medicine; Referring Provider Obstetrics & Gynecology; Visit Provider Obstetrics & Gynecology
DX: Z13.1 Encounter for screening for diabetes mellitus (principal)
CPT/HCPCS: 36415; 82951; 82952

== ENCOUNTER → 2021-10-24 06:52 | Outpatient (CLI) | payer BC, SELFPAY ==
[2021-10-24 08:05] LABS: Glucose GTT-Gestation. Fasting 85 mg/dL (<105)
[2021-10-24 08:15] LABS: Absolute Lymphocyte Count 1.69 X10^3/uL (0.83-4.51); Absolute Neutrophil Count 6.7 X10^3/uL (2.0-7.7); Basophil# 0.07 X10^3/uL; Basophil% 0.8 % (0-1); Eosinophil# 0.23 X10^3/uL; Eosinophils% 2.5 % (0-5); Hematocrit 35.4 % (37-47); Lymphocyte # 1.69 X10^3/ul (0.83-4.51); Lymphocyte % 18.2 % (19-41); Mean Corp Hgb Conc 33.9 g/dL (32-36); Mean Corpuscular Hgb 30.6 pg (27.0-32.0); Mean Corpuscular Volume 90.3 fL (81-99); Mean Platelet Vol. 10.1 fl (6.2-12.0); Monocyte# 0.51 X10^3/uL; Monocyte% 5.5 % (0-10); NRBC Flagged by Analyzer 0 % (0-5); Neutrophil # 6.73 X10^3/uL (2.7-7.7); Neutrophil % 72.2 % (47-70); Platelet Count 174 K/mm3 (150-450); RBC Distribution Width CV 13.1 % (11.6-14.6); RBC Distribution Width SD 42.6 fl (35.1-43.9); Red Blood Count 3.92 M/mm3 (4.2-5.4); White Blood Count 9.3 K/mm3 (4.4-11.0)
[2021-10-24 08:36] LABS: Glucose GTT-Gestational 1 Hr 157 mg/dL (<190)
[2021-10-24 10:10] LABS: Glucose GTT-Gestational 2 Hr 120 mg/dL (<165)
[2021-10-24 10:49] LABS: Glucose GTT-Gestational 3 Hr 131 L (<145)
== END ==
PROVIDERS: Obstetrics & Gynecology; PCP Internal Medicine; Referring Provider Obstetrics & Gynecology; Visit Provider Obstetrics & Gynecology
DX: O09.90 Supervision of high risk pregnancy, unspecified, unspecified trimester (principal); O99.810 Abnormal glucose complicating pregnancy; Z3A.00 Weeks of gestation of pregnancy not specified
CPT/HCPCS: 36415; 82951; 82952; 85025

== ENCOUNTER 2021-12-17 11:38 | Outpatient (CLI) | payer BC, SELFPAY ==
--- NOTE | 2021-12-17 11:40 | US_ITS ---
STUDY: OBSTETRICAL ULTRASOUND - BIOPHYSICAL PROFILE REASON FOR EXAM: Female, 31 years old weekly bpp baby b -- standing order LMP: 05/01/2021 PRIOR ULTRASOUND: None. TECHNIQUE: Transabdominal TECHNICAL QUALITY: Adequate. FINDINGS: Twin gestation.. The fetus is in a breech presentation. There is demonstrated cardiac activity with a heart rate of 140 bpm. There is a normal amniotic fluid volume. The largest amniotic fluid pocket measures 3.3 cm x 5.4 cm. The amniotic fluid index (ANUJ) is within normal limits. cm. The placenta is anterior in location and is not low lying. There are Grade 1 placental changes. Age by LMP: 32 weeks, 6 days. JESUS by LMP: 02/05/2022. Gender: Male BIOPHYSICAL PROFILE: Breathing Movements (FBM): 2 Gross Body Movements (GBM): 2 Tone (FT): 2 Amniotic Fluid Volume (AFV): 2 TOTAL SCORE: 8 / 8 IMPRESSION: Normal biophysical profile of 8/8. Electronically Signed: Salvador Zhao MD at 15:29 EST , STUDY: OBSTETRICAL ULTRASOUND - BIOPHYSICAL PROFILE REASON FOR EXAM: Female, 31 years old weekly bpp baby A -- standing order LMP: 05/01/2021 PRIOR ULTRASOUND: None. TECHNIQUE: Transabdominal TECHNICAL QUALITY: Adequate. FINDINGS: The fetus is in a cephalic presentation. There is demonstrated cardiac activity with a heart rate of 153 bpm. There is a normal amniotic fluid volume. The largest amniotic fluid pocket measures 3.2 WILDA by 4.1 cm. The amniotic fluid index (ANUJ) is within normal limits. The placenta is posterior in location and is not low lying. There are Grade 1 placental changes. Age by LMP: 32 weeks, 6 days. JESUS by LMP: 02/05/2022. Gender: Male BIOPHYSICAL PROFILE: Breathing Movements (FBM): 2 Gross Body Movements (GBM): 2 Tone (FT): 2 Amniotic Fluid Volume (AFV): 2 TOTAL SCORE: US/Biophysical Prof W/O Non Stres IMPRESSION: Normal biophysical profile of 06/23. Electronically Signed: Salvador Zhao MD at 15:30 EST ,
== END 2021-12-17 23:59 | disposition short-term general hospital (02) ==
LOC: US 11:39
PROVIDERS: PCP Internal Medicine; Referring Provider Obstetrics & Gynecology; Visit Provider Obstetrics & Gynecology
DX: O30.049 Twin pregnancy, dichorionic/diamniotic, unspecified trimester (principal)
CPT/HCPCS: 76819

== ENCOUNTER 2021-12-24 11:29 | Outpatient (CLI) | payer BC, SELFPAY ==
--- NOTE | 2021-12-24 11:34 | US_ITS ---
STUDY: OBSTETRICAL ULTRASOUND - BIOPHYSICAL PROFILE REASON FOR EXAM: Female, 31 years old twin . Baby A. LMP: 05/01/2021. PRIOR ULTRASOUND: Comparison is made with prior examination dated 12/17/2021. TECHNIQUE: Transabdominal TECHNICAL QUALITY: Adequate. FINDINGS: There is a single intrauterine fetus. The fetus is in a cephalic presentation. There is demonstrated cardiac activity with a heart rate of 144 bpm. There is a normal amniotic fluid volume. The largest amniotic fluid pocket measures 3.6 cm x 4.1 cm. The amniotic fluid index (ANUJ) is within normal limits. The placenta is posterior in location and is not low lying. There are Grade 1 placental changes. Age by LMP: 33 weeks, 6 days. JESUS by LMP: 02/05/2022. Gender: Male BIOPHYSICAL PROFILE: Breathing Movements (FBM): 2 Gross Body Movements (GBM): 2 Tone (FT): 2 Amniotic Fluid Volume (AFV): 2 TOTAL SCORE: 8 / 8 IMPRESSION: Normal biophysical profile of 8/8. Electronically Signed: Salvador Zhao MD at 15:18 EST Reading Location ID and State: [id number] , Service support , STUDY: OBSTETRICAL ULTRASOUND - BIOPHYSICAL PROFILE REASON FOR EXAM: Female, 31 years old twin . Baby B LMP: 05/01/2021. PRIOR ULTRASOUND: Comparison is made with prior study dated 12/17/2021. TECHNIQUE: Transabdominal TECHNICAL QUALITY: Adequate. FINDINGS: There is a single intrauterine fetus. The fetus is in a breech presentation. There is demonstrated cardiac activity with a heart rate of 152 bpm. There is a normal amniotic fluid volume. The largest amniotic fluid pocket measures 3.6 times by 6. cm. The amniotic fluid index (ANUJ) is normal. The placenta is posterior in location and is not low lying. There are Grade 1 placental changes. Age by LMP: 33 weeks, 6 days. JESUS by LMP: 02/05/2022. Gender: Male BIOPHYSICAL PROFILE: Breathing Movements (FBM): 2 Gross Body Movements (GBM): 2 Tone (FT): 2 Amniotic Fluid Volume (AFV): 2 TOTAL SCORE: US/Biophysical Prof W/O Non Stres IMPRESSION: Normal biophysical profile of 06/23. Electronically Signed: Salvador Zhao MD at 15:20 EST ,
== END 2021-12-24 23:59 | disposition home or self-care (01) ==
LOC: US 11:32
PROVIDERS: PCP Internal Medicine; Referring Provider Obstetrics & Gynecology; Visit Provider Obstetrics & Gynecology
DX: O30.049 Twin pregnancy, dichorionic/diamniotic, unspecified trimester (principal)
CPT/HCPCS: 76819

== ENCOUNTER 2021-12-31 11:31 | Outpatient (CLI) | payer BC, SELFPAY ==
--- NOTE | 2021-12-31 11:38 | US_ITS ---
STUDY: OBSTETRICAL ULTRASOUND - BIOPHYSICAL PROFILE REASON FOR EXAM: Female, 31 years old twin . Baby A LMP: 05/01/2021 PRIOR ULTRASOUND: Comparison is made with prior examination dated 12/24/2021. TECHNIQUE: Transabdominal TECHNICAL QUALITY: Adequate. FINDINGS: There is a single intrauterine fetus. The fetus is in a cephalic presentation. There is demonstrated cardiac activity with a heart rate of 163 bpm. There is a normal amniotic fluid volume. The largest amniotic fluid pocket measures 3.2 cm x 2.6 cm. The amniotic fluid index (ANUJ) is within normal limits. The placenta is posterior in location and is not low lying. There are Grade 1 placental changes. The cervix measures 2.86 cm. Age by LMP: 34 weeks, 6 days. JESUS by LMP: 02/05/2022. BIOPHYSICAL PROFILE: Breathing Movements (FBM): 2 Gross Body Movements (GBM): 2 Tone (FT): 2 Amniotic Fluid Volume (AFV): 2 TOTAL SCORE: 8 / 8 IMPRESSION: Normal biophysical profile of 8/8. Electronically Signed: Salvador Zhao MD at 15:39 EST Reading Location ID and State: [address] [place] [address] , Service support , STUDY: OBSTETRICAL ULTRASOUND - BIOPHYSICAL PROFILE REASON FOR EXAM: Female, 31 years old twin . Baby B LMP: 05/01/2021. PRIOR ULTRASOUND: Comparison is made with prior study dated 12/24/2021. TECHNIQUE: Transabdominal TECHNICAL QUALITY: Adequate. FINDINGS: There is a single intrauterine fetus. The fetus is in a cephalic presentation. There is demonstrated cardiac activity with a heart rate of 161 bpm. There is a normal amniotic fluid volume. The largest amniotic fluid pocket measures 4.3 cm x 2.3 cm. The amniotic fluid index (ANUJ) is within normal limits. cm. The placenta is posterior in location and is not low lying. There are Grade 1 placental changes. Age by LMP: 34 weeks, 6 days. JESUS by LMP: 02/05/2022. BIOPHYSICAL PROFILE: Breathing Movements (FBM): 2 Gross Body Movements (GBM): 2 Tone (FT): 2 Amniotic Fluid Volume (AFV): 2 TOTAL SCORE: US/Biophysical Prof W/O Non Stres IMPRESSION: Normal biophysical profile of 06/23. Electronically Signed: Salvador Zhao MD at 15:40 EST ,
== END 2021-12-31 23:59 | disposition home or self-care (01) ==
PROVIDERS: PCP Internal Medicine; Referring Provider Obstetrics & Gynecology; Visit Provider Obstetrics & Gynecology
DX: O30.049 Twin pregnancy, dichorionic/diamniotic, unspecified trimester (principal)
CPT/HCPCS: 76819

== ENCOUNTER 2022-01-02 16:40 | Outpatient (CLI) | payer BC, SELFPAY ==
[2022-01-02 16:52] VITALS: BMI 36.7
[2022-01-02] MEDS: Betamethasone/Betamethasone 30 MG/5 ML Vial 12 MG IM (17:27)
--- NOTE | 2022-01-03 12:44 | OB.TRI.PN ---
Progress Notes Date of Service: 01/02/22 Progress Note: celestone given for prematurity Assessment & Plan (1) growth restriction: COMMENT: Csection 01/08 @ 12, overall 27% with AC at 2%. Twin A. 17% difference on 11/21 of their weights baby b is breech pt requests section at 36 weeks vs induction unless baby b verts to vtx AND she is in active labor. f/u grwth complete
== END 2022-01-02 23:59 | disposition home or self-care (01) ==
LOC: LABSPEC 16:41 → WPOUT 16:48 → WP 16:50
PROVIDERS: PCP Internal Medicine; Visit Provider Obstetrics & Gynecology
DX: O36.5991 Maternal care for other known or suspected poor fetal growth, unspecified trimester, fetus 1 (principal); O32.1XX2 Maternal care for breech presentation, fetus 2; Z3A.00 Weeks of gestation of pregnancy not specified
CPT/HCPCS: 87081; 96372; 99218; G0378; J0702

== ENCOUNTER 2022-01-03 17:15 | Outpatient (CLI) | payer BC, SELFPAY ==
[2022-01-03] MEDS: Betamethasone/Betamethasone 30 MG/5 ML Vial 12 MG IM (17:46)
--- NOTE | 2022-01-06 07:42 | OB.TRI.PN ---
Progress Notes Date of Service: 01/03/22 Progress Note: celestone number 2 for prematurity IUGR twins
== END 2022-01-03 23:59 | disposition home or self-care (01) ==
LOC: WPOUT 17:20 → WP 17:21
PROVIDERS: PCP Internal Medicine; Referring Provider Obstetrics & Gynecology; Visit Provider Obstetrics & Gynecology
DX: O36.5990 Maternal care for other known or suspected poor fetal growth, unspecified trimester, not applicable or unspecified (principal); Z3A.00 Weeks of gestation of pregnancy not specified; O30.009 Twin pregnancy, unspecified number of placenta and unspecified number of amniotic sacs, unspecified trimester
CPT/HCPCS: 96372; 99218; G0378; J0702

== ENCOUNTER 2022-01-07 11:28 | Outpatient (CLI) | payer BC, SELFPAY ==
--- NOTE | 2022-01-07 11:32 | US_ITS ---
STUDY: OBSTETRICAL ULTRASOUND - BIOPHYSICAL PROFILE REASON FOR EXAM: Female, 31 years old twin . Baby A LMP: 05/01/2021. PRIOR ULTRASOUND: Comparison is made with prior study dated 12/31/2021. TECHNIQUE: Transabdominal TECHNICAL QUALITY: Adequate. FINDINGS: There is a single intrauterine fetus. The fetus is in a cephalic presentation. There is demonstrated cardiac activity with a heart rate of 152 bpm. There is a normal amniotic fluid volume. The largest amniotic fluid pocket measures 2.2 cm x 3.1 cm. The amniotic fluid index (ANUJ) is within normal limits. The placenta is posterior in location and is not low lying. There are Grade 1 placental changes. Age by LMP: 35 weeks, 6 days. JESUS by LMP: 02/05/2022. BIOPHYSICAL PROFILE: Breathing Movements (FBM): 2 Gross Body Movements (GBM): 2 Tone (FT): 2 Amniotic Fluid Volume (AFV): 2 TOTAL SCORE: 8 / 8 IMPRESSION: Normal biophysical profile of 8/8. Electronically Signed: Salvador Zhao MD at 13:09 EST , STUDY: OBSTETRICAL ULTRASOUND - BIOPHYSICAL PROFILE REASON FOR EXAM: Female, 31 years old twin . Baby B LMP: 05/01/2021 PRIOR ULTRASOUND: Comparison is made with prior study dated 12/31/2021. TECHNIQUE: Transabdominal TECHNICAL QUALITY: Adequate. FINDINGS: There is a single intrauterine fetus. The fetus is in a cephalic presentation. There is demonstrated cardiac activity with a heart rate of 148 bpm. There is a normal amniotic fluid volume. The largest amniotic fluid pocket measures 3 cm x 3.3 cm. The amniotic fluid index (ANUJ) is within normal limits. The placenta is posterior in location and is not low lying. There are Grade 1 placental changes. Age by LMP: 35 weeks, 6 days. JESUS by LMP: 02/05/2022. BIOPHYSICAL PROFILE: Breathing Movements (FBM): 2 Gross Body Movements (GBM): 2 Tone (FT): 2 Amniotic Fluid Volume (AFV): 2 TOTAL SCORE: US/Biophysical Prof W/O Non Stres IMPRESSION: Normal biophysical profile of 06/23. Electronically Signed: Salvador Zhao MD at 13:11 EST ,
== END 2022-01-07 23:59 | disposition home or self-care (01) ==
LOC: US 11:29
PROVIDERS: PCP Internal Medicine; Referring Provider Obstetrics & Gynecology; Visit Provider Obstetrics & Gynecology
DX: O30.049 Twin pregnancy, dichorionic/diamniotic, unspecified trimester (principal)
CPT/HCPCS: 76819

== ENCOUNTER 2022-01-08 06:50 | Inpatient (IN) | payer BC, SELFPAY ==
[2022-01-08] VITALS (16 sets, daily range): BP systolic 96–131; BP diastolic 35–68; PULSE 50–69; RESP 10–20; TEMP 36.1–36.7; O2SAT 96–100; BMI 37.3
--- NOTE | 2022-01-08 | FALS_PTH ---
PATIENT: YESENIA AVILES LOC: [facility] U#:[id number] AGE/SX: 31/F ROOM: WP006 RE01/08/[address]: Dr. Carin Max DO : 1990 BED: 1 DIS: 01/10/2022 SPEC #: [id number] RECD: 01/08/22 08:47 STATUS: GILBERTO LORI #: [id number] KARLENE: 01/08/22 00:[address]: Carin Max DEPT: SURGICAL PATHOLOGY RECD BY: Lino Mae ENTERED: 01/09/22 08:48 SP TYPE: FALL TUBES OTHR DR: Dr. Jimena Iglesias MD Tissues: Fallopian tube Procedures: Surgery Specimen Level II HEADER OPERATION: Tubal ligation PRE-OP DIAGNOSIS: Sterilization TISSUE SUBMITTED: Fallopian tubes, suture in right tube MICROSCOPIC DIAGNOSIS Right fallopian tube, salpingectomy: Complete cross-section of fallopian tube with no pathologic change. Left fallopian tube, salpingectomy: Complete cross-section of fallopian tube with no pathologic change. AM:suzy 01/10/2022 MICROSCOPIC DESCRIPTION Slides are reviewed. GROSS DESCRIPTION Received in fixative is one container labeled with the patient's name and designated bilateral fallopian tubes, suture in right tube. The specimen consists of two fallopian tubes with an average length of 4 cm and has an average diameter of 0.8 cm. Both fallopian tubes have normal fimbriated ends. No mass lesions are identified. Supervisor Operations sections are submitted in two cassettes as follows: 1 ? right fallopian tube, 2 ? left fallopian tube. / AM:suzy 01/09/2022 TC:4 CPT: 07552 x2
--- NOTE | 2022-01-08 07:44 | HP.PCM.OB_ITS ---
HPI - General General Date of Admission: 01/08/22 HPI Narrative YESENIA AVILES, is a 31y/o @ 36 weeks 0 days F who presents to l&D for IOL per MFM for di/di twin gestation with IUGR of Baby B. Baby B has been an unstable lie for the entire . Yesterday he was cephalic, however this morning at bedside scan baby B is juan breech. The patient is prepared for a section. Maternal Data Information JESUS Calculator Estimated Delivery Date Method Current WG Current Estimate 02/05/22 LMP (Certain) 36w 0d Other Estimates 02/07/22 Ultrasound #1 35w 5d # 2 PFSH PFSH Medical History (Updated 01/06/22 @ 10:59 by Cheryl Brewer) Abnormal Pap smear of cervix COVID-19 vaccine series completed growth restriction History of miscarriage History of depression Home Medications vitamin#30 30 mg iron-10 mg iron-folic acid 1 mg-omg3 capsule cap PO 02/25/21 [History Last Taken Unknown] meclizine 12.5 mg tablet 12.5 mg PO TID PRN #60 tab 12/15/21 [Rx Last Taken Unknown] omeprazole 20 mg capsule,delayed release 20 mg PO DAILY #30 cap 12/17/21 [Rx Last Taken Unknown] aspirin PO 01/02/22 [History Last Taken Unknown] bupropion HCl mg PO 01/02/22 [History Last Taken Unknown] Allergy/AdvReac Type Severity Reaction Status Date / Time egg Allergy Swelling Verified 01/02/22 16:53 Family History Father Diabetes Hypertension Sleep apnea Aortic aneurysm Mother Anemia Sleep apnea Surgical History History of wisdom tooth extraction, class II edentulism Social History adopted: No household members: spouse and children number of children: 2 current occupational status: employed current occupation: [employer] pets and animals: Yes (avoid litter box) pets and animals: cat(s) and dog(s) Smoking Status: Never smoker alcohol intake: current details: social; not while substance use type: does not use caffeine: Yes what type of physical activity do you participate in: walking seatbelt use: always do you feel safe at home: Yes additional social history: [employer] ([employer]) Patient works at [employer] History 4 Elective abortions Hx Para 2 Spontaneous abortions 1 Hx # Term Pregnancies 2 Ectopic pregnancies Hx # Pregnancies Multiple births # of living children 2 Past Pregnancies Del. Date Name GA/Weeks Outcome Route Bth Weight Gen Labor Lgth Anesthesia Del Locatn Provider FOB Unknown 2016 [place] 36 live - full term 5lbs 1 ounces Female RAIN 07/16/19 [place] 38 live - full term Female epid ural [facility] Delivery Date: oligo; SGA Zulma Villasenor Delivery Date: 07/16/19 No notes to display Visit Details OB Flowsheet Initial Weight: 205 lb Date -?-?-?-?-?-?-?-?-?-?-?-?- EGA Weight BP Urine Prot -?-?-?-?-?-?-?-?-?-?-?-?- Glucose FHR FuHt Pres Dilation -?-?-?-?-?-?-?-?-?-?-?-?- Effaced St Visit Note 07/02/21 -?-?-?-?-?-?-?-?-?-?-?-?- 8w 6d 205 lb (+0 oz) 100/82 -?-?-?-?-?-?-?-?-?-?-?-?- A 160 -?-?-?-?-?-?-?-?-?-?-?--?- B 170 A -?-?-?-?-?-?-?-?-?-?-?-?- B -?-?-?-?-?-?-?-?-?-?-?-?- A -?-?-?-?-?-?-?-?-?-?-?-?- B A SM- CRL cons wit h LMP 16 mm and 17 mm thick dividing membrane seen -?-?-?-?-?-?-?-?-?-?-?-?- B 07/15/21 -?-?-?-?-?-?-?-?-?-?-?-?- 10w 5d 206 lb (+16 oz) 110/62 Negative -?-?-?-?-?-?-?-?-?-?-?-?- Negative A 170 -?-?-?-?-?-?-?-?-?-?-?-?- B 160 A -?-?-?-?-?-?-?-?-?-?-?-?- B -?-?-?-?-?-?-?-?-?-?-?-?- A -?-?-?-?-?-?-?-?-?-?-?-?- B A Sm- no vb crampi ng nausea improving -?-?-?-?-?-?-?-?-?-?-?-?- B 08/14/21 -?-?-?-?-?-?-?-?-?-?-?-?- 15w 0d 203 lb 4 oz (-1 lb 12 oz) 100/70 Negative -?-?-?-?-?-?-?-?-?-?-?-?- Negative A 145 -?-?-?-?-?-?-?-?-?-?-?-?- B 145 A -?-?-?-?-?-?-?-?-?-?-?-?- B -?-?-?-?-?-?-?-?-?-?-?-?- A -?-?-?-?-?-?-?-?-?-?-?-?- B A SM- no vb lof cr amping, nausea improving -?-?-?-?-?-?-?-?-?-?-?-?- B 09/13/21 -?-?-?-?-?-?-?-?-?-?-?-?- 19w 2d 211 lb (+6 lb) 122/70 Negative -?-?-?-?-?-?-?-?-?-?-?-?- Negative A 145 -?-?-?-?-?-?-?-?-?-?-?-?- B 155 A -?-?-?-?-?-?-?-?-?-?-?-?- B -?-?-?-?-?-?-?-?-?-?-?-?- A -?-?-?-?-?-?-?-?-?-?-?-?- B A SM- no vb crampi ng lof good fm -?-?-?-?-?-?-?-?-?-?-?-?- B 10/08/21 -?-?-?-?-?-?-?-?-?-?-?-?- 22w 6d 215 lb 6 oz (+10 lb 6 oz) 114/68 Negative -?-?-?-?-?-?-?-?-?-?-?-?- Negative A 140 -?-?-?-?-?-?-?-?-?-?-?-?- B 150 A Cephalic -?-?-?-?-?-?-?-?-?-?-?-?- B Cephalic -?-?-?-?-?-?-?-?-?-?-?-?- A -?-?-?-?-?-?-?-?-?-?-?-?- B A JV- no complaint s today. PTL precautions disucssed. pt states that she fails her 1 hr gct so wants to do 3 hr. -?-?-?-?-?-?-?-?-?-?-?-?- B 11/06/21 -?-?-?-?-?-?-?-?-?-?-?-?- 27w 0d 225 lb 4 oz (+20 lb 4 oz) 110/74 Negative -?-?-?-?-?-?-?-?-?-?-?-?- Negative A 141 -?--?-?-?-?-?-?-?-?-?-?-?- B 144 A Cephalic -?-?-?-?-?-?-?-?-?-?-?-?- B Cephalic -?-?-?-?-?-?-?-?-?-?-?-?- A -?-?-?-?-?-?-?-?-?-?-?-?- B A JV- no lof, vagi nal bleeding, or dec fm. -?-?-?-?-?-?-?-?-?-?-?-?- B 11/20/21 -?-?-?-?-?-?-?-?-?-?-?-?- 29w 0d 223 lb 2 oz (+18 lb 2 oz) 110/82 Negative -?-?-?-?-?-?-?-?-?-?-?-?- Negative A 141 -?-?-?-?-?-?-?-?-?-?-?-?- B 153 A Cephalic -?-?-?-?-?-?-?-?-?-?-?-?- B Cephalic -?--?-?-?-?-?-?-?-?-?-?-?- A -?-?-?-?-?-?-?-?-?-?-?-?- B A JV- no lof, vagi nal bleeding or dec fm -?-?-?-?-?-?-?-?-?-?-?-?- B seeing MFM tomorrow for grow th 12/10/21 -?-?-?-?-?-?-?-?-?-?-?-?- 31w 6d 226 lb (+21 lb) 110/70 -?-?-?-?-?-?-?-?-?-?-?-?- A 145 -?-?-?-?-?-?-?-?-?-?-?-?- B 145 A -?-?-?-?-?-?-?-?-?-?-?-?- B -?-?-?-?-?-?-?-?-?-?-?-?- A -?-?-?-?-?-?-?-?-?-?-?-?- B A SM- no vb lof go od fm no reuglar ctx has fu US -?-?-?-?-?-?-?-?-?-?-?-?- B 12/17/21 -?-?-?-?-?-?-?-?-?-?-?-?- 32w 6d 227 lb 2 oz (+22 lb 2 oz) / -?-?-?-?-?-?-?-?-?-?-?-?- A 139 -?-?-?-?-?-?-?-?-?-?-?-?- B 147 A Cephalic -?-?-?-?-?-?-?-?-?-?-?-?- B Breech -?-?-?-?-?-?-?-?-?-?-?-?- A -?-?-?-?-?-?-?-?-?-?-?-?- B A JV- bpp 06/23 of b oth babies today. pt needs dopplers for tomorrow in [place]. baby a is IUGR 2nd% for abdominal circ. pt requesting primary section. [facility] recommends 36 week delivery -?-?-?-?-?-?-?-?-?-?-?-?- B 01/02/22 -?-?-?-?-?-?-?-?-?-?-?-?- 35w 1d 228 lb (+23 lb) -?-?-?-?-?-?-?-?-?-?-?-?- A 135 -?-?-?-?-?-?-?-?-?-?-?-?- B 140 A Cephalic -?-?-?-?-?-?-?-?-?-?-?-?- B Breech 3 -?-?-?-?-?-?-?-?-?-?-?-?- A -?-?-?-?-?-?-?-?-?-?-?-?- B A SM- no vb lof go od fm no regular ctx gbs done -?-?-?-?-?-?-?-?-?-?-?-?- B 01/08/22 -?-?-?-?-?-?-?-?-?-?-?-?- 36w 0d 231 lb 4.238 oz (+26 lb 4.238 oz) -?-?-?-?-?-?-?-?-?-?-?-?- A -?-?-?-?-?-?-?-?-?-?-?-?- B A -?-?-?-?-?-?-?-?-?-?-?-?- B -?-?-?-?-?-?-?-?-?-?-?-?- A -?-?-?-?-?-?-?-?-?-?-?-?- B A -?-?-?-?-?-?-?-?-?-?-?-?- B ROS Constitutional Constitutional: Denies change in weight, fatigue, fever(s), headache(s), poor appetite or weakness Eyes Eyes: Denies blurry vision, change in vision, seeing flashes or spots in vision ENT HEENT: Denies dizziness, headache(s), loss taste/smell or sore throat Cardiovascular Cardiovascular: Denies chest pain, dizziness, dyspnea, irregular heart rhythm, leg edema, palpitations, rapid heart rate or vomiting Respiratory/Chest Respiratory/Chest: Denies chest tightness, cough, dyspnea or breast pain Gastrointestinal Gastrointestinal: Denies abdominal pain, anorexia, constipation, cramping, diarrhea, hemorrhoids, vomiting or weight changes Genitourinary Genitourinary: Denies dysuria, flank pain, genital lesions, genital pain, urinary frequency or urinary urgency Musculoskeletal Musculoskeletal: Denies back pain, difficulty walking, joint pain, limited range of motion, muscle cramps or numbness Integumentary Integumentary: Denies lesions or unusual bruising Neurologic Neurologic: Denies abnormal movements, abnormal speech, dizziness, numbness, seizure-like activity or syncope Psychiatric Psychiatric: Denies anxiety, behavioral changes, change in appetite, change in libido, cognitive impairment, confusion, depression, difficulty concentrating, h allucinations or suicidal thoughts Endocrine Endocrinology: Denies excessive sweating, polydipsia or polyuria Hematologic/Lymphatic Hematologic/Lymphatic: Denies easy bleeding, easy bruising or lymphadenopathy Allergic/Immunologic Allergic/Immunologic: Denies itchy eyes, lip swelling, seasonal rhinorrhea, rhinitis, throat swelling, tongue swelling, eczemia, wheezing or asthma Vital Signs Vital Signs Vital Signs: Weight Weight: 231 lb 4.238 oz Body Mass Index (BMI) 37.3 Physical Exam Const alert, oriented x3, no apparent distress and healthy appearing General Appearance: cooperative; Negative for anxious HEENT normocephalic Face and Sinus: normal facial exam Eyes EOMs intact bilaterally and no scleral icterus General Eye: normal appearance of both eyes Neck full ROM and supple Lymph Lymphatic: no lymphadenopathy noted Chest Chest: abnormal inspection of the chest Resp normal respiratory effort Effort and Inspection: able to speak in complete sentences Cardio regular rate GI soft to palpation and non-tender Inspection: gravid Palpation: soft; Negative for tender external exam normal Back/Spine no CVA tenderness Extremity normal to inspection, full ROM and no clubbing, cyanosis or edema General Extremity: Negative for calf tenderness or edema Skin Lesions: no lesions Rashes: no rashes Psych mental status grossly normal Labs Labs Labs: Blood Type B POSITIVE Antibody Screen NEGATIVE Hct 35.4 % (37-47) L Hgb 12.0 g/dL (12.0-15.0) Pap Smear Negative Obstetrics US Syphilis Total Ab Non-reactive Rubella IgG Antibody Reactive (Nonreactive) Hep Bs Antigen Non-Reactive (Nonreactive) Neisseria gonorrhoeae DNA (BINH) Negative (Negative) HIV 1&2 Antibody Non-Reactive (Nonreactive) C.trachomatis DNA (PCR) Negative (Negative) Glucose 1 Hr 50 gm 153 mg/dL (70-140) H Group B Strep DNA Negative (Negative) Rhogam given: No Miscellaneous Test Assessment & Plan (1) Prematurity of fetus: COMMENT: BMZ given 01/02 and 01/03 (2) growth restriction: COMMENT: Csection 01/08 @ 12 JV with SM to assist, overall 27% with AC at 2%. Twin A. 17% difference on 11/21 of their weights baby b is breech pt requests section at 36 weeks vs induction unless baby b verts to vtx AND she is in active labor. f/u grwth complete (3) COVID-19 affecting in third trimester: COMMENT: Start aspirin and growth US at 32, 36 weeks (4) Abnormal glucose affecting : COMMENT: nl 3 hr gtt (5) Dichorionic diamniotic twin : COMMENT: NIPT- low risk fraternal boys. needs f/u anatomy views in 2 weeks.FU nl. Growth US 30-31 wks, weekly NSTs and wkly BPP with UAD. delivery at 36w. (6) Supervision of high risk , antepartum: COMMENT: PRR JESUS 02/05/22 boys PC: Jumana Bean. Spouse: Gil (7) : QUALIFIERS: Weeks of gestation: 32 weeks Qualified Code(s): Z3A.32 - 32 weeks gestation of COMMENT: low risk genetics. declined carrier. GBS neg (8) Nausea/vomiting in : COMMENT: phenergan, zofran; fluids on 06/19 (9) History of depression: COMMENT: no meds PLAN: plan for primary section for twins at 36 weeks 0 days - -Di/di twin with b IUGR -ancef 2 grams -plan for section at noon today with Dr. Alexander assisting.
[2022-01-08] MEDS: Lactated Ringers 1,000 ML 999 ML IV (08:10)
[2022-01-08] MEDS: Acetaminophen 500 MG Tablet 1000 MG PO ×3 (08:24→21:09)
[2022-01-08 08:33] LABS: Absolute Neutrophil Count 3.9 X10^3/uL (2.0-7.7); Basophil# 0.06 X10^3/uL; Basophil% 0.9 % (0-1); Eosinophil# 0.16 X10^3/uL; Eosinophils% 2.3 % (0-5); Hematocrit 31.5 % (37-47); Hemoglobin 10.8 g/dL (12.0-15.0); Lymphocyte % 30.3 % (19-41); Mean Corp Hgb Conc 34.3 g/dL (32-36); Mean Corpuscular Hgb 29.3 pg (27.0-32.0); Mean Corpuscular Volume 85.4 fL (81-99); Mean Platelet Vol. 10.8 fl (6.2-12.0); Monocyte# 0.64 X10^3/uL; Monocyte% 9.2 % (0-10); NRBC Flagged by Analyzer 0 % (0-5); Neutrophil # 3.92 X10^3/uL (2.7-7.7); Neutrophil % 56.6 % (47-70); Platelet Count 171 K/mm3 (150-450); RBC Distribution Width CV 12.8 % (11.6-14.6); RBC Distribution Width SD 40.1 fl (35.1-43.9); Red Blood Count 3.69 M/mm3 (4.2-5.4); White Blood Count 6.9 K/mm3 (4.4-11.0)
[2022-01-08] MEDS: Lactated Ringers 1,000 ML 150 ML IV (09:18)
--- NOTE | 2022-01-08 11:23 | PCM.DC ---
Discharge Instructions Diet Discharge Diet: No restrictions Activity Discharge Activity: May Not Drive (for 2 weeks or while taking narcotic pain medications.), May Shower and May Take a Tub Bath (in 7 days.) May resume sexual activity in: 4-6 weeks Weight Bearing Status: Full weight bearing Lifting Restrictions: 20 pounds Dressing / Incision Call your doctor if your incision/area has: Continuous Slow Oozing, Sudden Increased Bleeding, Increased Pain/ Swelling, Increased Redness and Foul Smelling Discharge Call your doctor if you observe: Fever of 101 or Higher and Using more than 1 pad per hour Suture Line Care: Avoid Pulling/Pushing and Avoid Pinching/Bending Cleanse incision/area with: Soap & Water and Keep Dressing Clean & Dry Follow Up Care Please Follow Up With: Carin Max DO When: Call [phone] to make an appointment for an incision check in 1-2 weeks. Test Results: Test results from this visit will be discussed in further detail at your follow-up appointment, if applicable. Discharge Plan Admission Admit Date/Time: 01/08/22 06:50 Primary Reason for Your Visit: section Attending Provider: Carin Max Primary Care Provider: Jimena Iglesias Discharge Orders/Prescriptions Prescriptions: New docusate sodium [Colace] 100 mg capsule 100 mg PO DAILY 14 Days Qty: 14 RF: 0 ibuprofen 800 mg tablet 800 mg PO Q8H PRN (Reason: pain) 7 Days Qty: 30 RF: 0 oxycodone-acetaminophen [oxycodone-acetaminophen] 1 TABLET tablet 1 - 2 tab PO Q4H PRN PRN (Reason: Pain) 7 Days Qty: 30 RF: 0 Continued vitamin#30 30 mg iron-10 mg iron-folic acid 1 mg-omg3 capsule 30 mg iron-10 mg iron-1 mg capsule 1 cap PO DAILY RF: 0 docusate sodium 100 mg Capsule 100 mg PO DAILY RF: 0 omeprazole 20 mg capsule,delayed release(DR/EC) 20 mg PO DAILY RF: 0 bupropion HCl 150 mg tablet extended release 24 hr 1 mg PO DAILY RF: 0 meclizine 12.5 mg tablet 12.5 mg PO TID PRN (Reason: motion sickness) Qty: 60 RF: 2 Discontinued aspirin 81 mg Tablet 1 mg PO DAILY RF: 0 Referrals / Follow Up: Jimena Iglesias MD [Primary Care Provider] - Disposition Disposition (needs filled in before D/C Order can be placed): Home, Self Care
[2022-01-08] MEDS: Sodium Citrate/Citric Acid 30 ML UDC PO (11:55)
[2022-01-08] MEDS: Cefazolin 2 GM in 0.9% Normal Saline 100 ML IV (11:58)
--- NOTE | 2022-01-08 13:00 | OP.PCM_ITS ---
Assessment & Plan (1) Dichorionic diamniotic twin : COMMENT: NIPT- low risk fraternal boys. needs f/u anatomy views in 2 weeks.FU nl. Growth US 30-31 wks, weekly NSTs and wkly BPP with UAD. delivery at 36w. (2) Abnormal glucose affecting : COMMENT: nl 3 hr gtt (3) COVID-19 affecting in third trimester: COMMENT: Start aspirin and growth US at 32, 36 weeks (4) growth restriction: COMMENT: Csection 01/08 @ 12 JV with SM to assist, overall 27% with AC at 2%. Twin A. 17% difference on 11/21 of their weights baby b is breech pt requests section at 36 weeks vs induction unless baby b verts to vtx AND she is in active labor. f/u grwth complete Maternal Data Information JESUS Calculator Estimated Delivery Date Method Current WG Current Estimate 02/05/22 LMP (Certain) 36w 0d Other Estimates 02/07/22 Ultrasound #1 35w 5d # 2 Details Operative Information Date of Procedure: 01/08/22 Pre-Operative Diagnosis: 36 weeks di/di twin gestation, IUGR baby A, Hydronephrosis baby B, vtx/breech presentations, desires permanent sterilization Post-Operative Diagnosis: 36 weeks di/di twin gestation, IUGR baby A, Hydronephrosis baby B, vtx/breech presentations, desires permanent sterilization Classification: Scheduled Procedure Type: low transverse (with bilteral tubal ligation ) manager diesel #1: Jacqueline Alexander Type of Anesthesia: Spinal Antibiotic Given: Ancef 2 grams IV x1 Estimated Blood Loss: 600cc Fluids Replaced: 1500cc Findings Description of Procedure: The patient is a 31 y/o @ 36 weeks with di/di twin gestation presented for primary with bilateral tubal ligation . Spinal anesthesia was placed without difficulty. Dong catheter was placed. The patient was placed in the dorsal supine position with leftward tilt. Patient was prepped and draped in the normal sterile fashion. Pfannenstiel skin incision was made with the scalpel and carried through to the underlying layer of fascia with the scalpel. Fascia was nicked in the midline and the incision extended laterally. The rectus bellies were dissected off superiorly and inferiorly with out complication both sharply and bluntly. The peritoneum was entered digitally. The incision was stretched and a low transverse uterine incision was made with the scalpel. The infant A's head was delivered atraumatically followed by the anterior and posterior shoulders without complication the rest of the infant delivered. The was noted to be crying, vigorous, and moving of all extremities. The cord was clamped and cut and the was handed off to awaiting nurse. baby B was then delivered, first the membranes were ruptured and clear fluid returned, The baby's buttock was grasped and delivered through the uterus. Fundal pressure was used by my showroom sales assistant to deliver the head without difficulty. The cord was clamped and cut. The baby was noted to be crying and vigorous and moving of all extremities. The placenta was delivered spontaneously immediately following and was noted to be intact and have a three- vessel cord. The uterus was exteriorized cleared of all clots and debris, and the incision was closed in a double layer closure using #1 vicryl followed by a #1 Monocryl. The ovaries and fallopian tubes were noted to be within normal limits. The fallopian tube on the right was elevated and the underlying mesosalpinx was cauterized and tied both distally and proximally using a 2-0 pain gut suture, cut and cauterized using the bovie for excellent hemostasis. The uterus was returned to the maternal abdomen and gutters were cleared of all clots and debris. The peritoneum was closed with 3-0 Monocryl in a running fashion. Gloves were changed prior to fascial closure. Fascia was closed with 0 PDS in a running fashion. Subcutaneous tissue was copiously irrigated and the skin was closed with 3-0 Monocryl in a subcuticular fashion. Mepilex dressing was applied without complication. Patient was taken to recovery in stable condition. , Baby A scores : 9/9 Baby B apga scores: 9/9 Presentation: Positive for Vertex Amniotic Membrane Rupture Type: Artificial Amniotic Fluid Description: Clear Placental Delivery Description: Expressed Placenta Disposition: Sent to Pathology Specimen(s) Sent to Pathology: placenta and bilateral fallopian tubes Cord Vessel Description: 3 Vessels Cord Entanglement: None Infant A Gender: Male (1 minute): 9 (5 minute): 9 Delayed Cord Clamping: No Complications Risks of Surgery Discussed w/Patient: Bleeding, Anesthesia Risks, Infection, Permanency, Failure Rate of 1 to 2%, Injury to surrounding structure(s) including bowel and bladder and Availability of other non-permanent control options Complications: none Baby B Operative Information Mode of Delivery: Cord Vessel Description: 3 Vessels Cord Entanglement: None Infant B gender: Male (1 minute): 9 (5 minute): 9 Delayed Cord Clamping: No Multi Select Codes Urinary/Genital Urinary/Genital CPT Codes: 43561 C/S+TL and 99209 Delivery global pkg (twin delivery )
[2022-01-08] MEDS: Oxytocin 30 units/NS 500 ml 30 UNITS/500 ML IV.SOLN 167 UNITS IV (13:15)
[2022-01-08] MEDS: Ketorolac 30 MG/ML Syringe IV ×2 (13:33→19:40)
[2022-01-08] MEDS: Methylergonovine 0.2 MG/ML Ampul IM (14:04)
[2022-01-08 15:12] LABS: Pathology Specimen OB SEE PATHOLOGY REPORT
[2022-01-08] MEDS: Lactated Ringers 1,000 ML 100 ML IV (16:31)
--- NOTE | 2022-01-08 20:00 | NURSING ---
Mother attempting to breastfeed and then plan to pump prior to going to [facility] to see . Mother requesting to wait to stand at bedside until feeding and pumping completed.
[2022-01-09] VITALS (7 sets, daily range): BP systolic 87–103; BP diastolic 37–56; PULSE 60–69; RESP 16–18; TEMP 36.4–36.9; O2SAT 96–98
[2022-01-09] MEDS: Enoxaparin 40 MG/0.4 ML Syringe SC (01:06)
[2022-01-09] MEDS: Ketorolac 30 MG/ML Syringe IV ×2 (01:31→08:21)
[2022-01-09] MEDS: Acetaminophen 500 MG Tablet 1000 MG PO ×4 (03:19→20:38)
[2022-01-09 06:01] LABS: Hematocrit 27.3 % (37-47); Hemoglobin 9.5 g/dL (12.0-15.0); Mean Corp Hgb Conc 34.8 g/dL (32-36); Mean Corpuscular Hgb 29.6 pg (27.0-32.0); Mean Platelet Vol. 10.8 fl (6.2-12.0); Platelet Count 166 K/mm3 (150-450); RBC Distribution Width CV 12.7 % (11.6-14.6); RBC Distribution Width SD 39.4 fl (35.1-43.9); Red Blood Count 3.21 M/mm3 (4.2-5.4); White Blood Count 11.2 K/mm3 (4.4-11.0)
[2022-01-09] MEDS: 0.9% Saline Lock 10 ML Syringe IV (08:21)
[2022-01-09] MEDS: Senna/Docusate Sodium 1 Tablet PO (09:24)
--- NOTE | 2022-01-09 12:44 | PN.OBGYN_ITS ---
Subjective Subjective Patient doing well without complaints. Tolerating PO. Ambulating and voiding without difficulty. feeding well. Denies chest pain, shortness of breath, calf pain/swelling, fevers, chills, lightheadedness. Objective Data Objective Data Vital Signs: Vital Signs Temp Pulse Resp BP Pulse Ox 97.7 F L 61 18 95/53 L 96 01/09/22 08:00 01/09/22 08:00 01/09/22 08:00 01/09/22 08:00 01/09/22 08:00 Oxygen Delivery Method Room Air Weight: 231 lb 4.238 oz Body Mass Index (BMI) 37.3 Intake & Output: Intake and Output for Last 24 Hours 01/07/22 01/08/22 01/09/22 23:59 23:59 23:59 Intake Total 2202.5 / 2202.5 1100 / 1100 Output Total 1650 / 1650 1900 / 1900 Balance 552.5 / 552.5 -800 / -800 Lab / Micro Data Result Diagrams: 01/09/22 05:50 Labs: Laboratory Results - last 24 hr 01/09/22 05:50: WBC 11.2 H, RBC 3.21 L, Hgb 9.5 L, Hct 27.3 L, MCV 85.0, MCH 29 .6, MCHC 34.8, RDW Std Deviation 39.4, RDW Coeff of Reynaldo 12.7, Plt Count 166, MPV 10.8 ROS Constitutional Constitutional: Reports systems reviewed and no addt'l complaints, except as documented Cardiovascular Cardiovascular: Reports systems reviewed and no addt'l complaints, except as documented Respiratory/Chest Respiratory/Chest: Reports systems reviewed and no addt'l complaints, except as documented Gastrointestinal Gastrointestinal: Reports systems reviewed and no addt'l complaints, except as documented Physical Exam Const alert, oriented x3 and no apparent distress HEENT Head and Scalp: atraumatic Resp normal respiratory effort GI soft to palpation and non-tender Inspection: incision intact, healing well and drainage (none) Bimanual Exam - Vag & Uterus: uterus non-tender Uterus Palpation: uterus fundus firm (below Umbilicus) Assessment & Plan (1) Nausea/vomiting in : COMMENT: phenergan, zofran; fluids on 06/19 (2) : QUALIFIERS: Weeks of gestation: 32 weeks Qualified Code(s): Z3A.32 - 32 weeks gestation of COMMENT: low risk genetics. declined carrier. GBS neg (3) Supervision of high risk , antepartum: COMMENT: PRR JESUS 02/05/22 boys PC: Jumana Bean. Spouse: Gil (4) Dichorionic diamniotic twin : COMMENT: NIPT- low risk fraternal boys. needs f/u anatomy views in 2 weeks.FU nl. Growth US 30-31 wks, weekly NSTs and wkly BPP with UAD. delivery at 36w. (5) COVID-19 affecting in third trimester: COMMENT: Start aspirin and growth US at 32, 36 weeks (6) Prematurity of fetus: COMMENT: BMZ given 01/02 and 01/03 (7) growth restriction: COMMENT: Csection 01/08 @ 12 JV with SM to assist, overall 27% with AC at 2%. Twin A. 17% difference on 1/ of their weights baby b is breech pt requests section at 36 weeks vs induction unless baby b verts to vtx AND she is in active labor. f/u grwth complete (8) History of depression: COMMENT: no meds (9) Abnormal glucose affecting : COMMENT: nl 3 hr gtt PLAN: s/p LTCS PPD # 1 1. routine post care 2. breast feeding- support given 3. rh positive 4. rubella immune
[2022-01-09] MEDS: Pantoprazole Sodium 20 MG Tablet PO (13:26)
[2022-01-09] MEDS: oxyCODONE 5 MG Tablet PO (13:28)
[2022-01-09] MEDS: buPROPion (XL) 150 MG TABLET.XL PO (13:55)
[2022-01-09] MEDS: Ibuprofen 600 MG Tablet PO ×2 (14:41→20:37)
[2022-01-09] MEDS: Prenatal Vits Tablet 1 TABLET PO (14:42)
[2022-01-10] MEDS: Enoxaparin 40 MG/0.4 ML Syringe SC (00:04)
[2022-01-10] MEDS: Ibuprofen 600 MG Tablet PO ×3 (02:33→13:59)
[2022-01-10] MEDS: Acetaminophen 500 MG Tablet 1000 MG PO ×3 (02:34→13:59)
[2022-01-10 03:00] VITALS: BP 111/58; PULSE 65; RESP 16; TEMP 36.8; O2SAT 97
[2022-01-10] MEDS: oxyCODONE 5 MG Tablet PO (06:31)
[2022-01-10 08:45] VITALS: BP 108/69; PULSE 61; RESP 14; TEMP 36.5; O2SAT 98
--- NOTE | 2022-01-10 09:58 | CASEMGMT ---
Social Work Assessment Labor and Delivery Unit Date of Referral: 01/08/22 Time of Referral: 2:07pm Date of Intervention: 01/10/22 Time of Intervention: 9:15am ? ? Referred by: Dr. White ? Reason for Referral: history of PPD, also one twin is in SCN ? PSYCHOSOCIAL HISTORY: ? Presenting situation: Baby born on 01/08/22. Twin brother in regular nursery, this baby in SCN. MOB also has hx of depression. ? History obtained from: MOB, FOB ? Household composition: MOB, FOB, two daughters and now twin boys Delano and Leonidas. MOB and FOB have been together since 2011, in 2016. ? Patient's parent/guardian status: Parents are guardians of all children ? Medical History: MOB: COVID-19 in 3rd trimester, abnormal glucose affecting , babies born 36 weeks, high risk , history of depression, MOB on Wellbutrin. Baby Leonidas: Born 01/08/[birth year] at 12:20pm at 36 weeks, respiratory distress syndrome in . Baby 2445 g at . Apgars were: 9 and 9 at one and five minutes. Baby Delano: Born 01/[birth year] at 12:25pm at 36 weeks, Baby 2545 g at . Apgars were: 9 and 9 at one and five minutes. ? Roofing Layer: Dr. Pelletier Developmental Concerns: None at this time ? Educational Status: MOB has Master's Degree. FOB has Bachelor's Degree ? Health Care Coverage: [facility] ? Financial Status: None. MOB works for [employer], plans to return to work. FOB works for [employer]. ? Supplies: They have all needed supplies for both babies, including 2 car seats, cribs, bassinets, swings, many bottles and formula, diapers, clothing. ? Childcare/Caregiver(s): MOB, FOB, and Children go to [employer] ? Transportation: yes, two vehicles ? Programs/Agencies Involved: None ? Behavioral Health Issues: Substance Abuse: None for FOB or MOB. Mental Health: FOB, none. MOB: history of depression, and depression after of first two children. MOB on Wellbutrin and states it helps. She states has been feeling good during . She plans to stay on Wellbutrin. She has been in counseling briefly in the past, does not anticipate needing to return to counseling. ? Family Stressors: None other than having twins, and a 5 year old and 2 year old at home ? Support Systems: MOB's mother who is with the girls now and staying to help w/the babies. MOB's brother is then coming after mom leaves to help. MOB's family and FOB's family supportive, though all out of state(MOB's family in [place], FOB's family in [place]). MOB states they have many friends in town who are very supportive and helpful. ? Assessment: SW met w/FOB and MOB in room. Both appropriate, good eye contact, answered all questions completely. Baby Delano brought in while SW in room, FOB immediately picked him up and started feeding him. MOB discussed openly history of depression and depression. ? SW gave and reviewed information on depression, shaken baby, safe sleeping, and Help Me Grow. They will speak to roasterman if Help Me Grow referral needed. SW reviewed symptoms of depression w/MOB and FOB. SW encouraged MOB if having symptoms to speak with her primary doctor about it, and to call for counseling if needed. SW also gave a list of resources [facility] and a list of counseling agencies in the area--pointed out the number for [facility] and explained that they have a 24 hour hotline if needed. ? We also spoke about having one twin in SCN. As per MOB and FOB, he is doing well and they are not expressing any additional concern in regard to this. They are hopeful they will all be able to go home today. ? Plan: Babies to go home w/FOB and MOB at discharge. ? Response to Plan: MOB and FOB in agreement with plan. ? YAQUELIN Garrido
[2022-01-10] MEDS: Pantoprazole Sodium 20 MG Tablet PO (10:05)
[2022-01-10] MEDS: Senna/Docusate Sodium 1 Tablet PO (10:05)
[2022-01-10] MEDS: buPROPion (XL) 150 MG TABLET.XL PO (10:06)
[2022-01-10] MEDS: Prenatal Vits Tablet 1 TABLET PO (13:59)
[2022-01-10 14:06] VITALS: BP 104/60; PULSE 71; RESP 12; TEMP 36.6; O2SAT 98
== END 2022-01-10 16:00 | disposition home or self-care (01) | DRG 783 ==
PROVIDERS: Admitting Provider Obstetrics & Gynecology; PCP Internal Medicine; Visit Provider Obstetrics & Gynecology
PROC: 10D00Z1 Extraction of Products of Conception, Low, Open Approach (ICD-10-PCS; CPT 59514; principal; 2022-01-08 11:45)
DX: O30.043 Twin pregnancy, dichorionic/diamniotic, third trimester (principal); U07.1 COVID-19; O98.52 Other viral diseases complicating childbirth; Z37.2 Twins, both liveborn; O32.1XX2 Maternal care for breech presentation, fetus 2; Z30.2 Encounter for sterilization; Z3A.36 36 weeks gestation of pregnancy; O36.5931 Maternal care for other known or suspected poor fetal growth, third trimester, fetus 1
CPT/HCPCS: 59025; 59050; 85025; 85027; 86850; 86900; 86901; 88302; 99218; J7120; A4216; G0378; J2405

== ENCOUNTER → 2023-12-01 | Outpatient (CLI) | payer BC, SELFPAY ==
--- OUTSIDE RECORDS SUMMARY | 2023-12-01 16:58 | XMS RPT_ITS | CCD ---
Author Name Unknown Address [address] [place] [address] Organization [facility] Care Team Providers Care Photographic Laboratory Supervisor Name Role Phone Harris OLVERA, Natanael Primary Care Provider ROSARIO FELIZ Attending Unavailable GANTA, NATANAEL Primary Care Unavailable CATRACHITA WALLIS Attending Unavailable GANTA, NATANAEL Primary Care Unavailable TALAMPAS, LYNNETTE D Attending Unavailable GANTA, NATANAEL Primary Care Unavailable TALAMPAS, LYNNETTE D Referring Unavailable GANTA, NATANAEL Primary Care Unavailable GANTA, NATANAEL Primary Care Unavailable ROSARIO FELIZ Attending Unavailable GANTA, NATANAEL Primary Care Unavailable RAMON RAMÍREZ JR Attending Unavailable GANTA, NATANAEL Primary Care Unavailable GANTA, NATANAEL Referring Unavailable TALAMPAS, LYNNETTE D Referring Unavailable GANTA, NATANAEL Primary Care Unavailable MUNA ARIZA Attending Unavailable GANTA, NATANAEL Primary Care Unavailable YOUNGCATRACHITA Attending Unavailable GANTA, NATANAEL Primary Care Unavailable GANTA, NATANAEL Primary Care Unavailable GANTA, NATANAEL Primary Care Unavailable OMAR, LUCIEN Referring Unavailable OMAR, LUCIEN Referring Unavailable GANTA, NATANAEL Primary Care Unavailable GANTA, NATANAEL Primary Care Unavailable CATRACHITA WALLIS Referring Unavailable RAMON RAMÍREZ JR Referring Unavailable LUCIEN NELSON Attending Unavailable GANTA, NATANAEL Primary Care Unavailable GANTA, NATANAEL Primary Care Unavailable RAMON RAMÍREZ JR Attending Unavailable GANTA, NATANAEL Primary Care Unavailable Allergies Allergy Classification Reported Allergen(s) Allergy Type Date of Onset Reaction(s) Facility (20 sources) egg extract; Translations: [EGG] Drug Allergy 06-19-2016 Other: See Comments [facility] Work Phone: Medications Current Medications Medication Drug Class(es) Dates Sig (Normalized) Sig (Original) 24 hr amphetamine aspartate 7.5 mg / amphetamine sulfate 7.5 mg / dextroamphetamine saccharate 7.5 mg / dextroamphetamine sulfate 7.5 mg extended release oral capsule (20 sources) Central Nervous System Stimulant Start: 11-08-2023 End: 01-07-2024 dextroamphetamin e-amphetamine (ADDERALL) 10 mg tablet Indications: Hypersomnia, idiopathic Take 1/2 tablet up to twice daily as needed.Take 1/2 tablet up to twice daily as needed. Do not start before December 07, 2023. 30 tablet 0 12/07/2023 01/07/2024 Active Completed/Discontinued Medications Medication Drug Class(es) Dates Sig (Normalized) Sig (Original) Adreset (Metagenics) Stress, blood sugar, thyroid/hormones/ad renals/energy (12 sources) Start: 03-24-2023 take 1 capsule by mouth twice daily Adreset (Metagenics) Stress, blood sugar, thyroid/hormones/a drenals/energy Take 1 capsule by mouth twice daily. Take second dose before 2pm 0 03/24/2023 Active Problems Active Problems Problem Classification Problem Date Documented Da te Episodic/Chronic Adjustment disorders (1 source) Stress; Translations: [Reaction to severe stress, unspecified] 06-26-2023 Chronic Anxiety disorders (14 sources) Mixed anxiety and depressive disorder; Translations: [Anxiety disorder, unspecified] Onset: 03-24-2023 Chronic Immunizations and screening for infectious disease (14 sources) Anti-nuclear factor positive; Translations: [Other specified abnormal immunological findings in serum] Onset: 03-24-2023 Episodic Lymphadenitis (1 source) Lymphadenopathy; Translations: [Enlarged lymph nodes, unspecified] Episodic Malaise and fatigue (14 sources) Fatigue; Translations: [Chronic fatigue, unspecified] Onset: 03-24-2023 Chronic Mood disorders (1 source) Depressive disorder; Translations: [Depression, unspecified depression type] 10-14-2023 Chronic Mood disorders (1 source) Mood disorders; Translations: [Anxiety and depression] Onset: 03-24-2023 Nutritional deficiencies (17 sources) Vitamin D deficiency; Translations: [Vitamin D deficiency, unspecified] Onset: 03-24-2023 Chronic Other aftercare (1 source) Drug therapy finding; Translations: [Other predatory animal exterminator (current) drug therapy] Episodic Other aftercare (1 source) Patient encounter status; Translations: [Other fpc (current) drug therapy] 07-16-2023 Episodic Other aftercare (2 sources) Other predatory animal exterminator (current) drug therapy; Translations: [Encounter for long-term current use of medication] Onset: 04-03-2023 Episodic Other circulatory disease (1 source) Orthostatic hypotension; Translations: [Orthostatic hypotension] 06-26-2023 Episodic Other gastrointestinal disorders (1 source) Constipation; Translations: [Constipation, unspecified] Episodic Other gastrointestinal disorders (1 source) Other functional disorders of intestine; Translations: [Intestinal dysbiosis] 06-26-2023 Episodic Other inflammatory condition of skin (1 source) Psoriasis; Translations: [Psoriasis, unspecified] 10-23-2023 Chronic Other nutritional; endocrine; and metabolic disorders (2 sources) Weight loss; Translations: [Abnormal weight loss] 07-07-2023 Episodic Other screening for suspected conditions (not mental disorders or infectious disease) (3 sources) Mammography abnormal; Translations: [Other abnormal and inconclusive findings on diagnostic imaging of breast] Episodic Other skin disorders (2 sources) Loss of hair; Translations: [Nonscarring hair loss, unspecified] 07-07-2023 Episodic Other upper respiratory infections (1 source) Acute maxillary sinusitis; Translations: [Acute maxillary sinusitis, unspecified] 09-14-2023 Episodic Residual codes; unclassified (20 sources) Obstructive sleep apnea syndrome; Translations: [Obstructive sleep apnea (adult) (pediatric)] Onset: 06-18-2020 06-18-2020 Chronic Residual codes; unclassified (2 sources) Hypersomnia; Translations: [Hypersomnia, unspecified] Chronic Residual codes; unclassified (8 sources) Idiopathic hypersomnia; 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] Chronic Residual codes; unclassified (2 sources) Idiopathic hypersomnia with long sleep time; Translations: [Hypersomnia, idiopathic] Onset: 04-03-2023 Chronic Residual codes; unclassified (1 source) Hypersomnia, unspecified; Translations: [Excessive sleepiness] Onset: 12-05-2022 Chronic Residual codes; unclassified (1 source) Exposure to mercury; Translations: [Contact with and (suspected) exposure to other hazardous metals] Episodic Past or Other Problems Problem Classification Problem Date Documented Da te Episodic/Chronic Conditions associated with dizziness or vertigo (2 sources) Dizziness; Translations: [Dizziness and giddiness] Onset: 07-07-2023 07-07-2023 Episodic E Codes: Natural/environment (14 sources) Tick bite; Translations: [Bitten or stung by nonvenomous insect and other nonvenomous arthropods, sequela] Onset: 03-24-2023 Episodic Malaise and fatigue (5 sources) Fatigue; Translations: [Other fatigue] Onset: 07-07-2023 Episodic Other nutritional; endocrine; and metabolic disorders (1 source) Abnormal weight loss; Translations: [Weight loss] Onset: 07-07-2023 Episodic Other skin disorders (1 source) Nonscarring hair loss, unspecified; Translations: [Hair thinning] Onset: 07-07-2023 Episodic Residual codes; unclassified (13 sources) Exposure to toxin; Translations: [Contact with and (suspected) exposure to other hazardous substances] Onset: 03-24-2023 Episodic Residual codes; unclassified (1 source) Contact with and (suspected) exposure to other hazardous metals; Translations: [Exposure to mercury] Onset: 03-27-2023 Episodic Residual codes; unclassified (1 source) Contact with and (suspected) exposure to other hazardous substances; Translations: [Toxin exposure] Onset: 03-24-2023 Episodic Results Test Name Value Interpretation Reference Range [facility] it Vital Signs Date Time Vital Sign Value Performing Clinician Nahum [email or web address] 10-23-2023 08:01-0500 Body weight 73.94 kg VISE HAND.REHABILITATION PROGRAM MANAGER Work Phone: [facility] 10-23-2023 08:01-0500 Diastolic blood pressure 68 mm[Hg] Older VISE HAND.REHABILITATION PROGRAM MANAGER Work Phone: [facility] 10-23-2023 08:01-0500 Heart rate 82 /min Muna Older VISE HAND.[facility] Work Phone: [facility] 10-23-2023 08:01-0500 Respiratory rate 16 /min Muna Older VISE HAND.[facility] Work Phone: [facility] 10-23-2023 08:01-0500 SaO2% (BldA) [Mass fraction] 99 % Muna Older VISE HAND.REHABILITATION PROGRAM MANAGER Work Phone: [facility] 10-23-2023 08:01-0500 Systolic blood pressure 110 mm[Hg] Muna Ariza APRN.CNP Work Phone: [facility] 07-07-2023 19:05-0400 Body temperature 99.39 [degF] Lynnette Arroyo MD Work Phone: [facility] 07-07-2023 19:05-0400 Body weight 75.75 kg Lynnette Arroyo MD Work Phone: [facility] 07-07-2023 19:05-0400 Diastolic blood pressure 72 mm[Hg] Lynnette Arroyo MD Work Phone: [facility] 07-07-2023 19:05-0400 Heart rate 89 /min Lynnette Arroyo MD Work Phone: [facility] 07-07-2023 19:05-0400 Respiratory rate 18 /min Lynnette Arroyo MD Work Phone: [facility] 07-07-2023 19:05-0400 SaO2% (BldA) [Mass fraction] 98 % Lynnette Arroyo MD Work Phone: [facility] 07-07-2023 19:05-0400 Systolic blood pressure 108 mm[Hg] Lynnette Arroyo MD Work Phone: [facility] 06-19-2023 13:45-0400 Body height 165.1 cm Rosario Feliz PA-C Work Phone: [facility] 06-19-2023 13:45-0400 Body weight 74.84 kg Rosario Feliz PA-C Work Phone: [facility] 06-19-2023 13:45-0400 Diastolic blood pressure 66 mm[Hg] Rosario BARBA-Hilaria Work Phone: [facility] 06-19-2023 13:45-0400 Heart rate 88 /min Rosario Feliz PA-C Work Phone: [facility] 06-19-2023 13:45-0400 SaO2% (BldA) [Mass fraction] 97 % Rosario Feliz PA-C Work Phone: [facility] 06-19-2023 13:45-0400 Systolic blood pressure 101 mm[Hg] Rosario Feliz PA-C Work Phone: [facility] 12-05-2022 08:04-0500 Body temperature 97.59 [degF] Ramon Ramírez Jr., MD Work Phone: [facility] 12-05-2022 08:04-0500 Body weight 84.28 kg Ramon Ramírez Jr., MD Work Phone: [facility] 12-05-2022 08:04-0500 Diastolic blood pressure 74 mm[Hg] Ramon Ramírez Jr., MD Work Phone: [facility] 12-05-2022 08:04-0500 Heart rate 76 /min Ramon Ramírez Jr., MD Work Phone: [facility] 12-05-2022 08:04-0500 Respiratory rate 16 /min Ramon Ramírez Jr., MD Work Phone: [facility] 12-05-2022 08:04-0500 SaO2% (BldA) [Mass fraction] 98 % Ramon Ramírez Jr., MD Work Phone: [facility] 12-05-2022 08:04-0500 Systolic blood pressure 98 mm[Hg] Ramon aRmírez Jr., MD Work Phone: [facility] 03-07-2022 08:00-0400 Body weight 94.8 kg Muna Older VISE HAND.REHABILITATION PROGRAM MANAGER Work Phone: [facility] 03-07-2022 08:00-0400 Diastolic blood pressure 64 mm[Hg] Muna Older VISE HAND.REHABILITATION PROGRAM MANAGER Work Phone: [facility] 03-07-2022 08:00-0400 Heart rate 60 /min Muna Older VISE HAND.REHABILITATION PROGRAM MANAGER Work Phone: [facility] 03-07-2022 08:00-0400 Respiratory rate 16 /min Muna Older VISE HAND.REHABILITATION PROGRAM MANAGER Work Phone: [facility] 03-07-2022 08:00-0400 Systolic blood pressure 98 mm[Hg] Muna Older VISE HAND.REHABILITATION PROGRAM MANAGER Work Phone: [facility] Encounters Encounter Date Encounter Type Care Provider Facility Start: 10-23-2023 End: 10-23-2023 ambulatory MUNA OLDER Facility:[facility] Start: 10-23-2023 End: 10-23-2023 Patient encounter procedure Muna Older VISE HAND.REHABILITATION PROGRAM MANAGER Work Phone: [facility] [place] Procedures Date Procedure Procedure Detail Performing Clinician Start: 06-10-2022 Adult depression scr eening assessment Muna Older VISE HAND.REHABILITATION PROGRAM MANAGER Work Phone: Start: 03-12-2022 Diagnostic mammograp hy computer-aided detcj bi Natanael Iglesias MD Work Phone: Start: 04-26-2021 Adult depression scr eening assessment Muna Older VISE HAND.REHABILITATION PROGRAM MANAGER Work Phone: Plan of Treatment Date Care Activity Detail Author Start: 11-06-2031 Urine microalbumin profile DTa P,Tdap,Td Vaccine (6 - Td or Tdap) [facility] Start: 10-28-2026 Urine microalbumin profile [facility] Start: 10-23-2024 Covid-19 Vaccine (2022- season) Covid-19 Vaccine ( season) [facility] Immunizations Immunization Date Immunization Notes Care Provider Benny fernandez 08-26-2022 influenza virus vaccine, unspecified formulation Lynnette Arroyo MD Work Phone: [facility] 09-21-2020 influenza, injectabl e, quadrivalent, contains preservative Muna Older VISE HAND.REHABILITATION PROGRAM MANAGER Work Phone: [facility] Work Phone: 09-10-2019 influenza, injectabl e, quadrivalent, contains preservative Muna Older VISE HAND.REHABILITATION PROGRAM MANAGER Work Phone: [facility] Work Phone: 08-28-2018 influenza, injectabl e, quadrivalent, contains preservative Muna Older VISE HAND.REHABILITATION PROGRAM MANAGER Work Phone: [facility] 10-28-2016 tetanus toxoid, redu koffi diphtheria toxoid, and acellular pertussis vaccine, adsorbed Muna Nichelle VISE HAND.REHABILITATION PROGRAM MANAGER Work Phone: [facility] Payers Date Payer Category Payer Unknown [employer] SS PPO [id number] 2020-Present [phone] [address] [place] [address] PPO [id number] 2020 Unknown AME DAVILA ACCE SS PPO [id number] 2020-Present [phone] [address] [place] [id number] PPO [id number] 2020 Unknown [id number] Social History Date Type Detail Facility Start: 12-26-2015 End: 07-02-2022 Tobacco smoking status NHIS Never smoked tobacco [facility] Work Phone: Start: 12-26-2015 End: 07-02-2022 Tobacco use and exposure Smokeless tobacco non-user [facility] Work Phone: Start: 02-21-2022 End: 10-23-2023 Alcohol intake Current drinker of alcohol (finding) [facility] Start: 12-18-2019 End: 09-24-2020 History SDOH Alcohol Frequency 3 [facility] Start: 09-24-2020 End: 08-12-2022 History SDOH Alcohol Std Drinks 1 [facility] Start: 06-19-2016 History SDOH Alcohol Comment Rarely, not while [facility] Start: 04-06-2020 End: 08-12-2022 History SDOH Social Connections Get Together 2 [facility] Start: 12-18-2019 History SDOH Stress 4 [facility] Start: 12-18-2019 History SDOH Financial 5 [facility] Start: 12-17-2019 Education 18 [facility] Start: 1990 Sex Assigned At Female [facility] Work Phone: Start: 02-11-2022 End: 02-21-2022 Exposure to SARS-CoV-2 (event) Unable to assess [facility] Start: 06-07-2022 End: 07-02-2022 Exposure to SARS-CoV-2 (event) Not sure [facility] Work Phone: Start: 03-23-2023 End: 04-09-2023 History of Social function [facility] Start: 03-23-2023 End: 04-09-2023 Social connection and isolation panel [facility] Do you belong to any clubs or organizations such as hinduism groups, unions, fraternal or athletic groups, or school groups? Yes [facility] Are you now , , , , never or living with a partner? [facility] How often to you hav e a drink containing alcohol? 2-4 times a month [facility] How many standard dr inks containing alcohol do you have on a typical day? 1 or 2 [facility] How often do you hav e 6 or more drinks on 1 occasion? Never [facility] How hard is it for y ou to pay for the very basics like food, housing, medical care, and heating Not hard at all [facility] Do you feel stress - tense, restless, nervous, or anxious, or unable to sleep at night because your mind is troubled all the time - these days [OSQ] Rather much [facility] (I/We) worried wheth er (my/our) food would run out before (I/we) got money to buy more. Never true [facility] In the past 12 month s, was there a time when you were not able to pay the mortgage or rent on time? No [facility] Start: 10-14-2017 Gender identity Identifies as female gender (finding) [facility] Work Phone: Start: 10-14-2017 Sexual orientation Heterosexual (finding) [facility] Work Phone: Clinical Notes 10-29-2016 to 10-23-2023 Patient InstructionsMuna Ariza APRN.REHABILITATION PROGRAM MANAGER - 10/23/2023 8:07 AM ESTTelephone Encounter - Brenna Jain LPN - 10/14/2023 2:06 PM ESTDuncvanPrem - 09/21/2023 10:30 AM ESTPatient Instructions Note Date & Type Note Facility 10-23-2023 Note HNO ID: [id number] Author: Muna Ariza APRN.REHABILITATION PROGRAM MANAGER Service: ? Author Type: Nurse Practitioner Type: Progress Notes Filed: 10/23/2023 10:24 AM Note Text: CC: Patient presents with: Recheck: for test resutls HPI Yesenia Carter is a 33 year old female who presents today for follow up. Has had multiple concerns and seen multiple specialists. Has been losing weight unintentionally. Over 50 pounds since last year and has been having her hair thinning. Does not exercise or abide by any specific healthy diet. Has been being worked up for chronic fatigue and started on adderall this past December. Fatigue improved with adderall and able to function. Still with dizziness when she stands up. Has been told possibly form POTS. A few weeks ago had a fever, with body aches and chills for one night but was gone by morning. Did a 5K and had pain to lower ribs for days after. Gets a brownish flat rash to her upper trunk and neck area intermittently. Lasts for about a month and has been getting this for years. No cause known. Gets blisters in her nares for years intermittently as well. Just started therapy for lintermittent numbness and weakness as ordered by [facility]. Does have history of psoriasis. REVIEW OF SYSTEMS General: no fevers, no chills, no night sweats, no recurrent infections, no change in appetite, and no significant changes in weight Respiratory: no cough, no wheezing, no shortness of breath, no hemoptysis Cardiovascular: no chest pain, no chest pressure, no palpitations, and no swelling Neurologic: No new weakness, new numbness, memory loss, syncope. PAST MEDICAL HISTORY Diagnosis Date Allergic rhinitis Allergic rhinitis due to animal (cat) (dog) hair and dander Anxiety and depression 03/24/2023 Chopra palsy Chronic pansinusitis fracture 2004 right arm hockey accident KORIN (obstructive sleep apnea) [facility] fx. [phone] Ovarian cyst Psoriasis Ankle Raynauds syndrome Vitiligo Ankle PAST SURGICAL HISTORY Procedure Laterality Date SECTION HX 01/08/2022 INSERTION OF IUD 02/06/2017 PAST SURGICAL HISTORY OF Bilateral 02/2018 Balloon Sinoplasty - Dr. Newell UNSPECIFIED ORAL SURGERY PROCEDURE, BY REPORT [place] Teeth ALLERGIES Eggs [Egg] MEDICATIONS buPROPion XL (WELLBUTRIN XL) 300 mg 24 hr tablet Take 1 tablet by mouth once daily. dextroamphetamine-amphetamine (ADDERALL) 10 mg tablet Take 1/2 tablet up to twice daily as needed.Take 1/2 tablet up to twice daily as needed. Take 1 capsule by mouth once daily for 30 days. Do not start before October 11, 2023. Do not start before October 11, 2023. amphetamine-dextroamphetamine XR (ADDERALL XR) 30 mg capsule Take 1 capsule by mouth once daily for 30 days. Take 1 capsule by mouth once daily for 30 days. Do not start before October 11, 2023. Do not start before October 11, 2023. Homocysteine [place] (Designs for Health) Take 2 capsules by mouth daily with food. G.I. Benefits (DaVinci) As a dietary supplement, mix one scoop with cold water or juice once or twice daily, or as directed by your health care practitioner. BiotaGen capsules (Klaire/Prothera) prebiotic (feeds probiotic) 4 capsules once or twice daily - if bloating decrease dose The Whole Probiotic (Biohm) Take 1 capsule by mouth once daily. Treatment 3-6 months Magnesium Citrate 150mg 90 ct[address] (Pure Encapsulations) Find your dose-2-8 capsules. Improved constipation but decrease dosing if yo get loose stools. Take at bedtime. PhytoMulti with Iron (Metagenics) Take 2 tablets daily with food O.N.E. Rover (Pure Encapsulations) Take 2 capsules by mouth daily with food. Adreset (Metagenics) Stress, blood sugar, thyroid/hormones/adrenals/energy Take 1 capsule by mouth twice daily. Take second dose before 2pm pseudoephed/diphenhydramine (ALLERGY AND CONGEST RELIEF ORAL) Take by mouth. [START ON 11/08/2023] dextroamphetamine-amphetamine (ADDERALL) 10 mg tablet Take 1/2 tablet up to twice daily as needed.Take 1/2 tablet up to twice daily as needed. Do not start before November 08, 2023. [START ON 12/07/2023] dextroamphetamine-amphetamine (ADDERALL) 10 mg tablet Take 1/2 tablet up to twice daily as needed.Take 1/2 tablet up to twice daily as needed. Do not start before December 07, 2023. [START ON 12/07/2023] amphetamine-dextroamphetamine XR (ADDERALL XR) 30 mg capsule Take 1 capsule by mouth once daily for 30 days. Take 1 capsule by mouth once daily for 30 days. Do not start before December 07, 2023. [START ON 11/08/2023] amphetamine-dextroamphetamine XR (ADDERALL XR) 30 mg capsule Take 1 capsule by mouth once daily for 30 days. Take 1 capsule by mouth once daily for 30 days. Do not start before November 08, 2023. Biocidin Advanced Formula (LaTherm) gut microbial (bacteria/yeast) balance Take 5 Drops by mouth three times daily. Biocidin - Begin with 1 drop and gradually increase up to 5 d (more content not included)... [facility] 10-23-2023 Instructions Muna Ariza APRN.MIRACLE - 10/23/2023 8:35 AM EST Shey oil to scalp three times a week. documented in this encounter [facility] 10-23-2023 History of Present illness Narrative CC: Patient presents with: Recheck: for test resutls HPI Yesenia Carter is a 33 year old female who presents today for follow up. Has had multiple concerns and seen multiple specialists. Has been losing weight unintentionally. Over 50 pounds since last year and has been having her hair thinning. Does not exercise or abide by any specific healthy diet. Has been being worked up for chronic fatigue and started on adderall this past December. Fatigue improved with adderall and able to function. Still with dizziness when she stands up. Has been told possibly form POTS. A few weeks ago had a fever, with body aches and chills for one night but was gone by morning. Did a 5K and had pain to lower ribs for days after. Gets a brownish flat rash to her upper trunk and neck area intermittently. Lasts for about a month and has been getting this for years. No cause known. Gets blisters in her nares for years intermittently as well. Just started therapy for lintermittent numbness and weakness as ordered by [facility]. Does have history of psoriasis. REVIEW OF SYSTEMS General: no fevers, no chills, no night sweats, no recurrent infections, no change in appetite, and no significant changes in weight Respiratory: no cough, no wheezing, no shortness of breath, no hemoptysis Cardiovascular: no chest pain, no chest pressure, no palpitations, and no swelling Neurologic: No new weakness, new numbness, memory loss, syncope. PAST MEDICAL HISTORY Diagnosis Date Allergic rhinitis Allergic rhinitis due to animal (cat) (dog) hair and dander Anxiety and depression 03/24/2023 Chopra palsy Chronic pansinusitis fracture 2004 right arm hockey accident KORIN (obstructive sleep apnea) [facility] [place] fx. [phone] Ovarian cyst Psoriasis Ankle Raynauds syndrome Vitiligo Ankle PAST SURGICAL HISTORY Procedure Laterality Date SECTION HX 01/08/2022 INSERTION OF IUD 02/06/2017 PAST SURGICAL HISTORY OF Bilateral 02/2018 Balloon Sinoplasty - Dr. Newell UNSPECIFIED ORAL SURGERY PROCEDURE, BY REPORT [place] Teeth ALLERGIES Eggs [Egg] MEDICATIONS buPROPion XL (WELLBUTRIN XL) 300 mg 24 hr tablet Take 1 tablet by mouth once daily. dextroamphetamine-amphetamine (ADDERALL) 10 mg tablet Take 1/2 tablet up to twice daily as needed.Take 1/2 tablet up to twice daily as needed. Take 1 capsule by mouth once daily for 30 days. Do not start before October 11, 2023. Do not start before October 11, 2023. amphetamine-dextroamphetamine XR (ADDERALL XR) 30 mg capsule Take 1 capsule by mouth once daily for 30 days. Take 1 capsule by mouth once daily for 30 days. Do not start before October 11, 2023. Do not start before October 11, 2023. Homocysteine [place] ([employer]) Take 2 capsules by mouth daily with food. G.I. Benefits (DaVinci) As a dietary supplement, mix one scoop with cold water or juice once or twice daily, or as directed by your health care practitioner. BiotaGen capsules (Klaire/Prothera) prebiotic (feeds probiotic) 4 capsules once or twice daily - if bloating decrease dose The Whole Probiotic (Biohm) Take 1 capsule by mouth once daily. Treatment 3-6 months Magnesium Citrate 150mg 90 ct. (Pure Encapsulations) Find your dose-2-8 capsules. Improved constipation but decrease dosing if yo get loose stools. Take at bedtime.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 Mother other (Sleep Disorders) Mother other (Anemia) Mother Diabetes Father Aneurysm Father Aortic Aneurysm other (Sleep Disorders) Father Cancer Maternal Grandmother Cancer Maternal Grandfather Alzheimer's Disease Paternal Grandmother Diabetes Paternal Grandfather Cancer Paternal Grandfather other (Sleep Disorders) Brother Social History Tobacco Use Smoking status: Never Smokeless tobacco: Never Vaping Use Vaping Use: Never used Substance Use Topics Alcohol use: Yes Comment: Rarely, not while Drug use: No Current Outpatient Medications Medication Sig Homocysteine [place] (OrbFlex for [email or web address]) Take 2 capsules by mouth daily with food. G.I. Benefits (DaVinci) As a dietary supplement, mix one scoop with cold water or juice once or twice daily, or as directed by your health care practitioner. BiotaGen capsules (Klaire/Prothera) prebiotic (feeds probiotic) 4 capsules once or twice daily - if bloating decrease dose The Whole Probiotic (Biohm) Take 1 capsule by mouth once daily. Treatment 3-6 months Biocidin Advanced Formula (LaTherm) gut microbial (bacteria/yeast) balance Take 5 Drops by mouth three times daily. Biocidin - Begin with 1 drop and gradually increase up to 5 drops 3 times per day for 8 weeks amphetamine-dextroamphetamine XR (ADDERALL XR) 30 mg biphasic capsule Take 1 capsule by mouth once daily for 30 days. Take 1 capsule by mouth once daily for 30 days. Do not start before September 12, 2023. Do not start before September 12, 2023. amphetamine-dextroamphetamine XR (ADDERALL XR) 30 mg biphasic capsule Take 1 capsule by mouth once daily for 30 days. Take 1 capsule by mouth once daily for 30 days. Do not start before August 12, 2023. Do not start before August 12, 2023. amphetamine-dextroamphetamine XR (ADDERALL XR) 30 mg biphasic capsule Take 1 capsule by mouth once daily for 30 days. Take 1 capsule by mouth once daily for 30 days. Do not start before July 11, 2023. Do not start before July 11, 2023. dextroamphetamine-amphetamine (ADDERALL) 10 mg tablet Take 1/2 tablet up to twice daily as needed.Take 1/2 tablet up to twice daily as needed. Do not start before September 12, 2023. Do not start before September 12, 2023. dextroamphetamine-amphetamine (ADDERALL) 10 mg tablet Take 1/2 tablet up to twice daily as needed.Take 1/2 tablet up to twice daily as needed. Do not start before August 12, 2023. Do not start before August 12, 2023. dextroamphetamine-amphetamine (ADDERALL) 10 mg tablet Take 1/2 tablet up to twice daily as needed.Take 1/2 tablet up to twice daily as needed. Do not start before July 11, 2023. Magnesium Citrate 150mg 90 ct. (Pure Encapsulations) Find your dose-2-8 capsules. Improved constipation but decrease dosing if yo get loose stools. Take at bedtime. PhytoMulti with Iron (Metagenics) Take 2 tablets daily with food O.N.E. Rover (Pure Encapsulations) Take 2 capsules by mouth daily with food. (more content not included)... [facility] 09-14-2023 Instructions Carin Harris APRN.REHABILITATION PROGRAM MANAGER - 09/14/2023 7:48 AM EDT Images from the original note were not included. Adult Sinusitis Patient Education What is Sinusitis? Sinusitis [xajq-cdy-tacb-tis] is inflammation of the sinuses or swelling of the lining of the sinus cavity or nose. During an infection the sinuses become blocked with fluid causing swelling of the lining of the sinuses. Symptoms: (viral and bacterial infections) Stuffy nose Runny nose Postnasal drip Fever Toothache Headache Tiredness Cough Sore throat Face and head pressure and or pain Common causes: 98% of sinus infections are viral caused by viruses. Risk Factors of Sinusitis Include: Allergies, air pollution, indoor humidity and outdoor temperature changes, andstructural changes in the nose may contribute to sinus pain, pressure and congestion. When to get help? Temperature greater than 100.4 F Symptoms lasting more than 10 days or worsening symptoms greater than 7-10 days. If you do not improve or worsen after a course of antibiotics, you should be re-examined. Diagnosis and Treatment: Your healthcare provider will ask a number of questions about your symptoms and how long they have occurred. If symptoms of sinusitis persist greater than 10 days, it is possible you have a bacterial sinus infection and an antibiotic is prescribed. If it is viral, antibiotics will not help. You may be instructed to take avxf-wrs-tuvaxph medications for symptoms. including fever reducers acetaminophen or ibuprofen, nasal saline spray, cough and cold preparations and decongestants as prescribed by the physician, nurse practitioner or physician esl instructional assistant. Self-Care and Prevention: Rest Fluids for hydration Good hand washing Humidifier Avoid smoking and exposure to second hand smoke Avoid sick contacts documented in this encounter [facility] 09-14-2023 History of Present illness Narrative Telemedicine Visit - Distance Health Virtual Visit Note Patient seen on [employer] Video Visit platform. Location of patient: [place] I have communicated my name and active licensure. The patient's identity and physical location were verified at the time of this visit. Either the patient or their legal product support representative has been informed of the risks and benefits of -- and alternatives to -- treatment through a remote evaluation and consents to proceed with the evaluation remotely. History of Present Illness Yesenia Carter is a 33 year old female who presents for the past 2 weeks with symptoms that are not improving. Symptoms include: Positive for Cough, Nasal congestion, Rhinorrhea, Face pain/pressure, and Headache, Negative for Fever, Chills/Sweats, SOB, HARVEY, Otalgia, Sore throat, Fatigue, Nausea, Emesis, and Diarrhea Oral intake: Adequate Tobacco use: No Sick contacts: Denies Recent travel: Denies OTC meds/remedies that patient has tried: Sudafed - minimal relief; OTC cold remedy - minimal relief; Patient denies current or . PAST MEDICAL HISTORY Diagnosis Date Allergic rhinitis Allergic rhinitis due to animal (cat) (dog) hair and dander Anxiety and depression 03/24/2023 Chopra palsy Chronic pansinusitis fracture 2003 right arm hockey accident KORIN (obstructive sleep apnea) [facility] [place] fx. [phone] Ovarian cyst Psoriasis Ankle Raynauds syndrome Vitiligo Ankle PAST SURGICAL HISTORY Procedure Laterality Date SECTION HX 01/08/2022 INSERTION OF IUD 02/06/2017 PAST SURGICAL HISTORY OF Bilateral 02/2018 Balloon Sinoplasty - Dr. Newell UNSPECIFIED ORAL SURGERY PROCEDURE, BY REPORT [place] FAMILY HISTORY Problem Relation Age of Onset Seizures Mother other (Sleep Disorders) Mother other (Anemia) Mother Diabetes Father Aneurysm Father Aortic Aneurysm other (Sleep Disorders) Father Cancer Maternal Grandmother Cancer Maternal Grandfather Alzheimer's Disease Paternal Grandmother Diabetes Paternal Grandfather Cancer Paternal Grandfather other (Sleep Disorders) Brother Social History Tobacco Use Smoking status: Never Smokeless tobacco: Never Vaping Use Vaping Use: Never used Substance Use Topics Alcohol use: Yes Comment: Rarely, not while Drug use: No Current Outpatient Medications Medication Sig Homocysteine [place] ([employer]s for Health) Take 2 capsules by mouth daily with food. G.I. Benefits (DaVinci) As a dietary supplement, mix one scoop with cold water or juice once or twice daily, or as directed by your health care practitioner. BiotaGen capsules (Klaire/Prothera) prebiotic (feeds probiotic) 4 capsules once or twice daily - if bloating decrease dose The Whole Probiotic (Biohm) Take 1 capsule by mouth once daily. Treatment 3-6 months Biocidin Advanced Formula (LaTherm) gut microbial (bacteria/yeast) balance Take 5 Drops by mouth three times daily. Biocidin - Begin with 1 drop and gradually increase up to 5 drops 3 times per day for 8 weeks amphetamine-dextroamphetamine XR (ADDERALL XR) 30 mg biphasic capsule Take 1 capsule by mouth once daily for 30 days. Take 1 capsule by mouth once daily for 30 days. Do not start before September 12, 2023. Do not start before September 12, 2023. amphetamine-dextroamphetamine XR (ADDERALL XR) 30 mg biphasic capsule Take 1 capsule by mouth once daily for 30 days. Take 1 capsule by mouth once daily for 30 days. Do not start before August 12, 2023. Do not start before August 12, 2023. amphetamine-dextroamphetamine XR (ADDERALL XR) 30 mg biphasic capsule Take 1 capsule by mouth once daily for 30 days. Take 1 capsule by mouth once daily for 30 days. Do not start before July 11, 2023. Do not start before July 11, 2023. dextroamphetamine-amphetamine (ADDERALL) 10 mg tablet Take 1/2 tablet up to twice daily as needed.Take 1/2 tablet up to twice daily as needed. Do not start before September 12, 2023. Do not start before September 12, 2023. dextroamphetamine-amphetamine (ADDERALL) 10 mg tablet Take 1/2 tablet up to twice daily as needed.Take 1/2 tablet up to twice daily as needed. Do not start before August 12, 2023. Do not start before August 12, 2023. dextroamphetamine-amphetamine (ADDERALL) 10 mg tablet Take 1/2 tablet up to twice daily as needed.Take 1/2 tablet up to twice daily as needed. Do not start before July 11, 2023. Magnesium Citrate 150mg 90 ct. (Pure Encapsulations) Find your dose-2-8 capsules. Improved constipation but decrease dosing if yo get loose stools. Take at bedtime. PhytoMulti with Iron (Metagenics) Take 2 tablets daily with food O.N.E. Rover (Pure Encapsulations) Take 2 capsules by mouth daily with food. Vitamin D [place] (Toura) Take 1 capsule by mouth daily with food. Adreset (Fluidinfo) Stress, blood sugar, thyroid/hormones/adrenals/energy Take 1 capsule by mouth twice daily. Take second dose before 2pm MEDICATION, NON-DATABASE Vitamin D 2000 International Units 1 Collagen 3 gram 3 pseudoephed/diphenhydramine (ALLERGY & CONGEST RELIEF ORAL) Take by mouth. buPROPion XL (WELLBUTRIN XL) 300 mg 24 hr tablet Take 1 tablet by mouth once daily. Cholecalciferol, Vitamin D3, 25 mcg (1,000 unit) cap Take 2 capsules by mouth once daily. No current facility-administered medications for this visit. ALLERGIES Allergen Reactions Eggs [Egg] Other: See Comments gastric distress Video Exam (Examination performed via Video enabled technology) General appearance: Alert, oriented, pleasant, in NAD :Yes Ill appearing :No Lethargic appearing :No Eyes: Sclera clear :Yes Conjunctiva without erythema :Yes Ears: Tragus / outer ear tenderness by self palpation :No Oropharynx: moist mucous membranes Frontal sinus tenderness by self palpation;No Maxillary sinus tenderness by self palpation :Yes Tender cervical adenopathy by self palpation :No Respiratory distress :No Coughing noted :No Audible wheezing noted :No ASSESSMENT/PLAN: 1. Acute non-recurrent maxillary sinusitis - ICD9: 461.0, ICD10: J01.00 - Will begin treatment with Augmentin 875 mg PO BID for 5 days - Supportive care with plenty of fluids, rest, and analgesia prn - Recommend use of fluticasone (FLONASE) nasal spray at bedtime, per package instructions - Follow up with PCP (or available in-person care) in 1 week if symptoms persist or sooner if symptoms worsen - Red flags discussed for need for in person care - All questions answered Carin Harris APRN.CNP If you let us know who your primary care provider is, we will send them a notification of today s visit through our electronic medical records system. Since not all providers have access to our notifications, we strongly encourage you to share the following record of today s visit with your primary care provider at your next visit. This will help in providing you the best care. If you do not have an established Primary Care physician and would like to continue care with a [facility] Virtual Primary Care physician, please ask your provider to place a Establish Primary Care order. Use [employer] to manage your care, wherever you are, 08/06, on your mobile device or computer. [email or web address] connects you to [email or web address] so you can access all your health information in one place and also schedule and request virtual appointments with primary care providers. documented in this encounter [facility] 07-19-2023 Miscellaneous Notes See telephone encounter addressing patient's questions noted in [email or web address] message. documented in this encounter [facility] 07-16-2023 Miscellaneous Notes Pt called and is notified of providers results and instructions. Pt voices understanding. Alcira Nayak, RN Hold Vitamin D for the next couple months to let it drift down then may resume lower dose. Note that even though Vitamin D level was high, no signs of adverse effects (calcium level still within normal limits). Medlis shows she is taking two 25 mcg (1000 unit) capsules. If this is correct, then when resumes supplement, could take just one daily. Creatinine was slightly up--prior levels were within normal limits Just stay hydrated. Low alk phos not significant. Can recheck labs in 4 to 6 months to make sure everything is okay. Patient calling asking for her lab results had done middle of last week. She can see results on my chart, wants to know if any changes? Please advise Component Latest Ref Rng & Units 07/08/2023 Protein, Total 6.3 - 8.0 g/dL 7.1 Albumin 3.9 - 4.9 g/dL 4.6 Calcium 8.5 - 10.2 mg/dL 9.4 Bilirubin, Total 0.2 - 1.3 mg/dL 0.4 Alkaline Phosphatase 34 - 123 U/L 27 (L) AST 13 - 35 U/L 18 ALT 7 - 38 U/L 16 Glucose 74 - 99 mg/dL 98 BUN 7 - 21 mg/dL 15 Creatinine 0.58 - 0.96 mg/dL 1.02 (H) Sodium 136 - 144 mmol/L 138 Potassium 3.7 - 5.1 mmol/L 4.2 Chloride 97 - 105 mmol/L 103 CO2 22 - 30 mmol/L 24 Anion Gap 9 - 18 mmol/L 11 eGFR >=60 mL/min/1.73m 74 Color Yellow Yellow Clarity Clear Clear Glucose, Urine Trace, Negative Negative Bilirubin, Urine Negative Negative Ketones, Urine Trace, Negative Negative Specific [place], Ur 1.005 - 1.030 1.020 Hemoglobin/Blood,Ur Negative, Trace Negative pH, Urine 5.0 - 8.0 6.0 Protein, Urine Trace, Negative Trace Urobilinogen Negative Negative Nitrites Negative Negative Leukest Negative, 25 Jono/uL 25 Jono/uL WBC, Urine 0-5 /HPF 0-5 /HPF RBC, Urine 0-3 /HPF 0-3 /HPF Epithelial Cells /HPF Few WBC 3.70 - 11.00 k/uL 6.32 RBC 3.90 - 5.20 m/uL 4.54 Hemoglobin 11.5 - 15.5 g/dL 13.7 Hematocrit 36.0 - 46.0 % 40.2 MCV 80.0 - 100.0 fL 88.5 MCH 26.0 - 34.0 pg 30.2 MCHC 30.5 - 36.0 g/dL 34.1 RDW-CV 11.5 - 15.0 % 11.9 Platelet Count 150 - 400 k/uL 219 MPV 9.0 - 12.7 fL 10.1 Absolute nRBC <0.01 k/uL <0.01 TSH 0.270 - 4.200 mIU/L 2.130 Free T4 0.9 - 1.7 ng/dL 1.6 Free T3 2.3 - 4.1 pg/mL 3.1 Vitamin D 25 Hydroxy 31.0 - 80.0 ng/mL 118.0 (H) documented in this encounter [facility] 07-07-2023 Note HNO ID: [id number] Author: Lynnette Arroyo MD Service: ? Author Type: Physician Type: Progress Notes Filed: 08/09/2023 11:15 PM Note Text: This note was created using [employer]. Subjective Yesenia Carter is a 33 year old female. Patient presents with: Established Patient: Excessive hair and weight loss SUBJECTIVE: Yesenia Carter is a 33 year old year old lady here today for appointment for review of medical conditions: Hair loss and unintended weight loss. Noted that has been following with Functional Medicine as well as Sleep medicine. Started seeing Dr. Iglesias for excessive sleepiness. Lab work done and just MAX 1:160 noted Went to functional medicine. Noted had twins 1.5 years ago. Weight peaked at 210 pounds. Appetite changed. Stopped overeating. Started losing weight. Lost a lot of weight Nausea resolved. Not really eating healthiest foods. Not snacking as much now. Not yet exercising. Past couple weeks weight loss has slowed down. Eating Breakfast egg sandwich, bagel. Lunch left over from dinner. Supper--steak,potato, vegetable; could be tacos; lots of fruit. Before was eating lager portions.Less fast food. Eating out less. Kids 6,4,twin 1.5 years old. Has had dizziness. Getting tested for POTS. However, not drinking enough water daily and gets pot of coffee daily. and 1 bottle of water. Dizzy after crouching then standing up. Noted her BP runs low normal. PAST MEDICAL HISTORY Diagnosis Date Allergic rhinitis Allergic rhinitis due to animal (cat) (dog) hair and dander Anxiety and depression 03/24/2023 Chopra palsy Chronic pansinusitis fracture 2004 right arm hockey accident KORIN (obstructive sleep apnea) [facility] [place] fx. [phone] Ovarian cyst Psoriasis Ankle Raynauds syndrome Vitiligo Ankle Current Outpatient Medications Medication Sig Homocysteine [place] (OrbFlex for [email or web address]) Take 2 capsules by mouth daily with food. G.I. Benefits (DaVinci) As a dietary supplement, mix one scoop with cold water or juice once or twice daily, or as directed by your health care practitioner. BiotaGen capsules (Klaire/Prothera) prebiotic (feeds probiotic) 4 capsules once or twice daily - if bloating decrease dose The Whole Probiotic (Biohm) Take 1 capsule by mouth once daily. Treatment 3-6 months Biocidin Advanced Formula (LaTherm) gut microbial (bacteria/yeast) balance Take 5 Drops by mouth three times daily. Biocidin - Begin with 1 drop and gradually increase up to 5 drops 3 times per day for 8 weeks [START ON 09/12/2023] amphetamine-dextroamphetamine XR (ADDERALL XR) 30 mg biphasic capsule Take 1 capsule by mouth once daily for 30 days. Take 1 capsule by mouth once daily for 30 days. Do not start before September 12, 2023. Do not start before September 12, 2023. [START ON 08/12/2023] amphetamine-dextroamphetamine XR (ADDERALL XR) 30 mg biphasic capsule Take 1 capsule by mouth once daily for 30 days. Take 1 capsule by mouth once daily for 30 days. Do not start before August 12, 2023. Do not start before August 12, 2023. [START ON 07/11/2023] amphetamine-dextroamphetamine XR (ADDERALL XR) 30 mg biphasic capsule Take 1 capsule by mouth once daily for 30 days. Take 1 capsule by mouth once daily for 30 days. Do not start before July 11, 2023. Do not start before July 11, 2023. [START ON 09/12/2023] dextroamphetamine-amphetamine (ADDERALL) 10 mg tablet Take 1/2 tablet up to twice daily as needed.Take 1/2 tablet up to twice daily as needed. Do not start before September 12, 2023. Do not start before September 12, 2023. [START ON 08/12/2023] dextroamphetamine-amphetamine (ADDERALL) 10 mg tablet Take 1/2 tablet up to twice daily as needed.Take 1/2 tablet up to twice daily as needed. Do not start before August 12, 2023. Do not start before August 12, 2023. [START ON 07/11/2023] dextroamphetamine-amphetamine (ADDERALL) 10 mg tablet Take 1/2 tablet up to twice daily as needed.Take 1/2 tablet up to twice daily as needed. Do not start before July 11, 2023. Magnesium Citrate 150mg 90 ct. (Pure Encapsulations) Find your dose-2-8 capsules. Improved constipation but decrease dosing if yo get loose stools. Take at bedtime. PhytoMulti with Iron (Metagenics) Take 2 tablets daily with food O.N.E. Rover (Pure Encapsulations) Take 2 capsules by mouth daily with food. Vitamin D [place] (Toura) Take 1 capsule by mouth daily with food. Adreset (Metagenics) Stress, blood sugar, thyroid/hormones/adrenals/energy Take 1 capsule by mouth twice daily. Take second dose before 2pm MEDICATION, NON-DATABASE Vitamin D 2000 International Units 1 Collagen 3 gram 3 pseudoephed/diphenhydramine (ALLERGY AND CONGEST RELIEF ORAL) Take by mouth. buPROPion XL (WELLBUTRIN XL) 300 mg 24 hr tablet Take 1 tablet by mouth once daily. Cholecalciferol, Vitamin D3, 25 mcg (1,000 unit) cap Take 2 capsules by (more content not included)... [facility] 07-07-2023 History of Present illness Narrative This note was created using [employer]. Subjective Yesenia Carter is a 33 year old female. Patient presents with: Established Patient: Excessive hair and weight loss SUBJECTIVE: Yesenia Carter is a 33 year old year old lady here today for appointment for review of medical conditions: Hair loss and unintended weight loss. Noted that has been following with Functional Medicine as well as Sleep medicine. Started seeing Dr. Iglesias for excessive sleepiness. Lab work done and just MAX 1:160 noted Went to functional medicine. Noted had twins 1.5 years ago. Weight peaked at 210 pounds. Appetite changed. Stopped overeating. Started losing weight. Lost a lot of weight Nausea resolved. Not really eating healthiest foods. Not snacking as much now. Not yet exercising. Past couple weeks weight loss has slowed down. Eating Breakfast egg sandwich, bagel. Lunch left over from dinner. Supper--steak,potato, vegetable; could be tacos; lots of fruit. Before was eating lager portions.Less fast food. Eating out less. Kids 6,4,twin 1.5 years old. Has had dizziness. Getting tested for POTS. However, not drinking enough water daily and gets pot of coffee daily. and 1 bottle of water. Dizzy after crouching then standing up. Noted her BP runs low normal. PAST MEDICAL HISTORY Diagnosis Date Allergic rhinitis Allergic rhinitis due to animal (cat) (dog) hair and dander Anxiety and depression 03/24/2023 Chopra palsy Chronic pansinusitis fracture 2003 right arm hockey accident KORIN (obstructive sleep apnea) [facility] [place] fx. [phone] Ovarian cyst Psoriasis Ankle Raynauds syndrome Vitiligo Ankle Current Outpatient Medications Medication Sig Homocysteine [place] (OrbFlex for [email or web address]) Take 2 capsules by mouth daily with food. G.I. Benefits (DaVinci) As a dietary supplement, mix one scoop with cold water or juice once or twice daily, or as directed by your health care practitioner. BiotaGen capsules (Klaire/Prothera) prebiotic (feeds probiotic) 4 capsules once or twice daily - if bloating decrease dose The Whole Probiotic (Biohm) Take 1 capsule by mouth once daily. Treatment 3-6 months Biocidin Advanced Formula (LaTherm) gut microbial (bacteria/yeast) balance Take 5 Drops by mouth three times daily. Biocidin - Begin with 1 drop and gradually increase up to 5 drops 3 times per day for 8 weeks [START ON 09/12/2023] amphetamine-dextroamphetamine XR (ADDERALL XR) 30 mg biphasic capsule Take 1 capsule by mouth once daily for 30 days. Take 1 capsule by mouth once daily for 30 days. Do not start before September 12, 2023. Do not start before September 12, 2023. [START ON 08/12/2023] amphetamine-dextroamphetamine XR (ADDERALL XR) 30 mg biphasic capsule Take 1 capsule by mouth once daily for 30 days. Take 1 capsule by mouth once daily for 30 days. Do not start before August 12, 2023. Do not start before August 12, 2023. [START ON 07/11/2023] amphetamine-dextroamphetamine XR (ADDERALL XR) 30 mg biphasic capsule Take 1 capsule by mouth once daily for 30 days. Take 1 capsule by mouth once daily for 30 days. Do not start before July 11, 2023. Do not start before July 11, 2023. [START ON 09/12/2023] dextroamphetamine-amphetamine (ADDERALL) 10 mg tablet Take 1/2 tablet up to twice daily as needed.Take 1/2 tablet up to twice daily as needed. Do not start before September 12, 2023. Do not start before September 12, 2023. [START ON 08/12/2023] dextroamphetamine-amphetamine (ADDERALL) 10 mg tablet Take 1/2 tablet up to twice daily as needed.Take 1/2 tablet up to twice daily as needed. Do not start before August 12, 2023. Do not start before August 12, 2023. [START ON 07/11/2023] dextroamphetamine-amphetamine (ADDERALL) 10 mg tablet Take 1/2 tablet up to twice daily as needed.Take 1/2 tablet up to twice daily as needed. Do not start before July 11, 2023. Magnesium Citrate 150mg 90 ct[address] (Pure Encapsulations) Find your dose-2-8 capsules. Improved constipation but decrease dosing if yo get loose stools. Take at bedtime. PhytoMulti with Iron (Fluidinfo) Take 2 tablets daily with food O.N.E. Rover (Pure Encapsulations) Take 2 capsules by mouth daily with food. Vitamin D [place] (OrbFlex for [email or web address]) Take 1 capsule by mouth daily with food. Adreset (Metagenics) Stress, blood sugar, thyroid/hormones/adrenals/energy Take 1 capsule by mouth twice daily. Take second dose before 2pm MEDICATION, NON-DATABASE Vitamin D 2000 International Units 1 Collagen 3 gram 3 pseudoephed/diphenhydramine (ALLERGY & CONGEST RELIEF ORAL) Take by mouth. buPROPion XL (WELLBUTRIN XL) 300 mg 24 hr tablet Take 1 tablet by mouth once daily. Cholecalciferol, Vitamin D3, 25 mcg (1,000 unit) cap Take 2 capsules by mouth once daily. No current facility-administered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 daily with food. The Whole Probiotic (Biohm) Sig: Take 1 capsule by mouth once daily. Treatment 3-6 months I recommend the supplements from the [facility] Healthy Living Store Online Store at [email or web address].i4.ms.[email or web address] om/ as we have thoroughly evaluated the research and use only highest quality supplements. If you are a new patient, enter the following provider code: functional During the next 6-8 weeks you'll be working on your diet plan discussed with our vaccine customer representative, allowing for gentle detoxification and decreasing inflammation - while we are gathering your lab results and combining those with your complete history to formulate a very personalized treatment plan. LAB results: Due to the complexity of the testing performed, we are not able to review labs via Mingyiant or over the phone, but please know, if any of your labs are critical we will contact you. Otherwise, we will review all your labs at your next visit. Make sure to schedule with the vaccine customer representative (this will not happen automatically) as you did with your first visit so that she can review nutritional aspects of your treatment plan. By your 3rd visit, as things are improving, we will likely transition you to one of our very capable Certified Nurse Practitioners/Physician Assistants for further follow-up. Potential future labs: Any [employer] labs ordered take about 4 weeks to return. Do them as soon as possible so that we have the results before your next appointment. You can access them on the [employer] website and it can be beneficial if you review them prior to your next visit. www.Boomix.net. Read about NutrEval/GI Effects if this was ordered. Time spend with patient: I spent a total of 30 minutes on the date of the service which included preparing to see the patient, [id number] patient care, completing clinical documentation, obtaining and/or reviewing separately obtained history, performing a medically appropriate examination, counseling and educating the patient/family/caregiver, ordering medications, tests, or procedures, communicating with other HCPs (not separately reported), independently interpreting results (not separately reported), communicating results to the patient/family/caregiver, and care coordination (not separately reported). Catrachita Wallis MD documented in this encounter [facility] 06-19-2023 Note HNO ID: [id number] Author: Rosario Feliz PA-C Service: ? Author Type: Physician Television Inspector Type: Progress Notes Filed: 06/19/2023 2:33 PM Note Text: [facility] Follow up/ Established patient visit Date of last visit : 01/05/23 IMPRESSION/PLAN: Idiopathic hypersomnia (primary encounter diagnosis) On stimulant medication 32 year old female with PMH of IH and depression presents for medication management of hypersomnia. - She reports Armodafinil 250 mg is ineffective, she is sleepy an hour after taking it. - Discussed different tx options. - She would like to try a different stimulant. - Continue Armodafinil 250 mg daily. - Trial of Adderall, 5mg, may take up to 3 tablets daily if needed. If she's still sleepy on 5 mg, can go up to 10-15 mg. - ADRs palpitations, chest pain or jitteriness with the Adderall.discussed with the patient. - Baseline EKG ordered. - Discussed drowsy driving. Follow up in 1 month with JOCELYN hernandez and [address] Ramírez or sooner if needed. Lucien Nelson APRN.REHABILITATION PROGRAM MANAGER Interval history: The patient is a 33 year old female presenting to the office with PMH significant for allergic rhinitis, anxiety/depression, KORIN, Reynauds, and Hypersomnia. Here today for follow up in regard to IH and medication management. 12/17/2020, PSG performed. AHI 0.8, supine AHI 0.5, REM AHI 1.5. PLM index 0 and PLM arousal index 0.0. Average SPO2 96% with flori of 93%. Grade 3%. BMI 30.7. 12/18/2020, MSLT performed. Mean sleep latency of 14 minutes and there were 0/5 SOREMPs. --------- - HYPERSOMNIA : Idiopathic Hypersomnia Naps: No Cataplexy: No Hypnagogic hallucinations: No Dream enactment behaviors: No Sleep related injuries: No Drowsy driving: No EC04/03/23, NSR with normal intervals. Normal Qtc. Current medications: OARRS checked: Yes 1. Adderall XR 30 mg 1 capsule daily. (Last refill 06/10/2023 - 07/10/2023). Dr. Ramírez. Timin:30-8 AM. Takes 30-60 minutes to wake up after taking. 2. Adderall 10 mg 1/2 tablet BID prescribed. (Last refilled on 05/08/23-06/07/23). Dr. Ramírez. Timing: One full 10 mg at 3 PM, then occasionally if not working well will take an additional 10 mg at 5 pm. 3. Wellbutrin 300 mg, takes this in the morning . SLEEP HYGIENE QUESTIONS: Bedtime: 9 PM. Wake up Time: 6:30-6:45 AM Time it takes to fall sleep: < 15 minutes. Number of times patient wakes up per night: 0 Estimated total sleep time ( in a 24 hour period of time): 10 hours. Naps: No, she previously was napping everyday but now well controlled. PATIENT-ENTERED QUESTIONNAIRE SLEEP SCORES Sleep Questions 06/12/2023 Reason for visit: Excessive daytime sleepiness Average hours slept in 24 hours: 10 Average hours of CPAP per night: - Percent of nights CPAP used at least 4 hours: - Accidents or near accidents due to drowsy drivin Wilmot Sleepiness Scale 12/14/2020 01/02/2023 06/12/2023 Score 15 (present daytime sleepiness) 18 (severe daytime sleepiness) 15 (present daytime sleepiness) PROMIS CAT Sleep Disturbance 12/14/2020 01/02/2023 06/12/2023 PROMIS Sleep Disturbance T-Score 57 (mild) 52 (within normal limits) 51 (within normal limits) PROMIS Sleep Disturbance Percentile 24 % 42 % 46 % Insomnia Severity Index 06/12/2020 12/14/2020 Score 18 15 PHQ-9 04/09/2023 04/09/2023 06/12/2023 Score 9 9 14 PROMIS Global Health - (T-Scores - the mean of general population = 50. Five points is a clinically meaningful difference.) 12/01/2022 03/02/2023 06/12/2023 Physical T-Score 47.7 50.8 50.8 Mental T-Score 45.8 45.8 43.5 PMH, PSH, SH: Reviewed. SLEEP RELATED ROS Review of Systems Respiratory: Negative for difficulty breathing. Cardiovascular: Negative for chest pain and palpitations. Gastrointestinal: Positive for heartburn. Genitourinary: Negative for nocturia. Musculoskeletal: Negative for arthralgias, back pain and myalgias. Neurological: Negative for dizziness and headaches. ALLERGIES Allergen Reactions Eggs [Egg] Other: See Comments gastric distress CURRENT MEDICATIONS: amphetamine-dextroamphetamine XR (ADDERALL XR) 30 mg biphasic capsule Take 1 capsule by mouth once daily for 30 days. Do not start before June 10, 2023. Magnesium Citrate 150mg 90 ct. (Pure Encapsulations) Find your dose-2-8 capsules. Improved constipation but decrease dosing if yo get loose stools. Take at bedtime. PhytoMulti with Iron (Metagenics) Take 2 tablets daily with food O.N.E. Rover (Pure Encapsulations) Take 2 capsules by mouth daily with food. Vitamin D [place] (OrbFlex for LikeMe.Net) Take 1 capsule by mouth daily with food. Adreset (Metagenics) Stress, blood sugar, thyroid/hormones/adrenals/energy Take 1 capsule by mouth twice daily. Take second dose before 2pm MEDICATION, NON-DATABASE Vitamin D 2000 International Units (more content not included)... [facility] 06-19-2023 Instructions Rosario Feliz PA-C - 06/19/2023 2:21 PM EDT Your most recent body mass index (BMI) that we have on record is 27.46 kg/m2. Obstructive sleep apnea (KORIN) worsens with an increase in weight; reduction in weight may improve or resolve your KORIN. If you are not already seeking treatment, there are resources available at the [facility] such as a nutrition consultation or referral to weight management programs at our [facility] [place]. Please let us know if we can assist with a referral. Please continue medications as discussed: - You are required to see 1 person in office per year. - [address] Ramírez per year. - Every 3 months. - ECG annually. Following up for your Disorder: Symptoms of narcolepsy, idiopathic hypersomnia and other central nervous system (DIRECTOR OF CLINICAL APPLICATIONS) hypersomnia disorders can be effectively treated with several types of medications, many of which require frequent monitoring by a healthcare provider. At [facility], we want to ensure that your symptoms are well managed so that you can enjoy the best quality of life possible. Several medications are approved by the Food and Drug Administration (FDA) for the treatment of narcolepsy and one medication is approved for the treatment of idiopathic hypersomnia. Therefore, it is common practice to use some alerting medications off-label which means that insurance coverage is variable. Most are controlled substances, meaning that their use is monitored closely by pharmacies and governmental agencies. Some have interactions with other commonly used medications, including oral contraceptives and antidepressants. Regular follow-up with your sleep provider is required. If you are taking medications for hypersomnia, contact your sleep provider before starting other prescribed medications. Always keep your medication in a safe place, out of reach of children, teens and pets. A blood pressure measurement is required at every follow-up visit. You may set up a compatible blood pressure monitoring device that allows you to submit your readings from home to your healthcare provider through My Chart. Ask your provider for more information. Medications: There are three main classes of medication approved for the treatment of excessive sleepiness associated with narcolepsy: stimulant medications, non-stimulant wake-promoting medications and sodium/lower sodium oxybates. Sodium/lower sodium oxybates and pitolisant, a newer wake promoting agent, are also approved for cataplexy in people with narcolepsy. Stimulant Medications: Stimulants include methylphenidate (Ritalin, Concerta, Metadate, Daytrana, Quillivant, Quillichew), dexmethylphenidate (Focalin), and amphetamine derivatives (Adderall, Desoxyn, Methadine, Vyvanse, Zendeti). Due to side effects and the potential for dependence, follow-up with your sleep provider is required every 3 months including one in-person visit per year. This includes an annual visit with your sleep physician and quarterly visits with a sleep advanced practice provider as well as periodic urine and EKG monitoring. Non-stimulant Wake-promoting Medications: Non-stimulant wake-promoting medications include modafinil (Provigil) and armodafinil (Nuvigil) and two new agents FDA-approved in 2019, solriamfetol (Sunosi) and pitolisant (Wakix). Modafinil, armodafinil and solriamfetol are also approved for excessive sleepiness in people with obstructive sleep apnea on CPAP, and modafinil and armodafinil for excessive sleepiness in shift work sleep disorder. For more information about the newest treatments, see www.sunosi.ZAPITANO and www.wakix.com. Pitolisant requires a special prescription referral form sent by your sleep provider to a specialty pharmacy. While side effects may also occur with these agents, the risks are less than with stimulant medications. and follow-up with your sleep provider is required every 6 months including one in-person visit per year. This includes an annual visit with your sleep physician and a mid-year visit with a sleep advanced practice provider. Periodic urine and EKG monitoring may be recommended depended on the type of medication being prescribed. Oxybate Salts: Sodium oxybate (Xyrem) and lower-sodium oxybate (Xywav) are FDA-approved medications for excessive sleepiness and cataplexy in narcolepsy. Xywav was FDA-approved in 2020 and contains over 90% less sodium than Xyrem with the same degree of effectiveness. Both Xyrem and Xywav are liquids taken at bedtime and again during the night. Xyrem/Xywav are salts of gamma hydroxybutyrate (GHB), an illegal drug with serious side effects. While Xyrem/Xywav are not GHB, they should not be taken with other DIRECTOR OF CLINICAL APPLICATIONS depressants including opioid analgesics, benzodiazepines, sedating antidepressants, antipsychotics, sedating anti-seizure medicines, general anesthetics, muscle relaxants, alcohol or street drugs due to the risk of serious medical problems. When taken as prescribed, oxybate salts have lower potential for physical or psychological dependence than stimulant medications. Prescriptions are filed by a specialty pharmacy through the Xyrem/Xywav REMS Program. For more information, see www.Boutique Window.com or www.Notion Systems.com, respectively. Follow-up with your sleep provider is required every 6 months including one in-person visit per year. This includes an annual visit with your sleep physician and a mid-year visit with a sleep advanced practice provider. Periodic urine and EKG monitoring may be recommended. If you reside outside the state of [place], please discuss follow-up visit and prescription recommendations with your sleep physician as controlled substance regulations vary by state. If you miss your regularly scheduled appointments, you will need to make an appointment with a sleep advanced practice provider before refills will be approved. Non-medication Treatments: Non-pharmalogical treatments should be combined with medications to improve daytime sleepiness in narcolepsy, idiopathic hypersomnia, and other forms of hypersomnia. These including daytime naps, consistent sleep schedules, strategic caffeine, good sleep hygiene, avoidance of alcohol, sedating medications, recreational drugs and sleep deprivation and treatment of co-existing sleep disorders. Social support is important in managing the psychological difficulties associated with hypersomnia disorders and some people require educational and/or work accommodations. Cognitive behavioral therapy (CBT) with an experienced psychologist is helpful in managing psychosocial challenges and maintaining good sleep habits. Scheduling Information: - Any appointments can be scheduled through the central scheduling system for the [facility] [place] at [phone]. - [employer] offers direct scheduling for patients to schedule appointments. -Virtual visits are also available. If not covered by your insurance, there is a 35% discount. Please contact your insurance to determine coverage. For refills: - If you are receiving a controlled substance, you will need to see a sleep physician at least once per year. - In [employer] ( Medications then Request Renewals ) - Call the office at [phone], option #5 for provider questions. For any other questions: - Contact your visit provider via [employer] ( Inbox & Sent Messages then Send a message ) for the quickest response. - Call the office at [phone], option #5 for provider questions. [facility] website: [email or web address] documented in this encounter [facility] 06-19-2023 History of Present illness Narrative Images from the original note were not included. [facility] Follow up/ Established patient visit Date of last visit : 01/05/23 IMPRESSION/PLAN: Idiopathic hypersomnia (primary encounter diagnosis) On stimulant medication 32 year old female with PMH of IH and depression presents for medication management of hypersomnia. - She reports Armodafinil 250 mg is ineffective, she is sleepy an hour after taking it. - Discussed different tx options. - She would like to try a different stimulant. - Continue Armodafinil 250 mg daily. - Trial of Adderall, 5mg, may take up to 3 tablets daily if needed. If she's still sleepy on 5 mg, can go up to 10-15 mg. - ADRs palpitations, chest pain or jitteriness with the Adderall.discussed with the patient. - Baseline EKG ordered. - Discussed drowsy driving. Follow up in 1 month with JOCELYN hernandez and [address] Ramírez or sooner if needed. Lucien Nelson APRN.REHABILITATION PROGRAM MANAGER Interval history: The patient is a 33 year old female presenting to the office with PMH significant for allergic rhinitis, anxiety/depression, KORIN, Reynauds, and Hypersomnia. Here today for follow up in regard to IH and medication management. 12/17/2020, PSG performed. AHI 0.8, supine AHI 0.5, REM AHI 1.5. PLM index 0 and PLM arousal index 0.0. Average SPO2 96% with flori of 93%. Grade 3%. BMI 30.7. 12/18/2020, MSLT performed. Mean sleep latency of 14 minutes and there were 0/5 SOREMPs. HYPERSOMNIA : Idiopathic Hypersomnia Naps: No Cataplexy: No Hypnagogic hallucinations: No Dream enactment behaviors: No Sleep related injuries: No Drowsy driving: No EC04/03/23, NSR with normal intervals. Normal Qtc. Current medications: OARRS checked: Yes 1. Adderall XR 30 mg 1 capsule daily. (Last refill 06/10/2023 - 07/10/2023). Dr. Ramírez. Timin:30-8 AM. Takes 30-60 minutes to wake up after taking. 2. Adderall 10 mg 1/2 tablet BID prescribed. (Last refilled on 05/08/23-06/07/23). Dr. Ramírez. Timing: One full 10 mg at 3 PM, then occasionally if not working well will take an additional 10 mg at 5 pm. 3. Wellbutrin 300 mg, takes this in the morning . SLEEP HYGIENE QUESTIONS: Bedtime: 9 PM. Wake up Time: 6:30-6:45 AM Time it takes to fall sleep: < 15 minutes. Number of times patient wakes up per night: 0 Estimated total sleep time ( in a 24 hour period of time): 10 hours. Naps: No, she previously was napping everyday but now well controlled. PATIENT-ENTERED QUESTIONNAIRE SLEEP SCORES Sleep Questions 06/12/2023 Reason for visit: Excessive daytime sleepiness Average hours slept in 24 hours: 10 Average hours of CPAP per night: - Percent of nights CPAP used at least 4 hours: - Accidents or near accidents due to drowsy drivin Wilmot Sleepiness Scale 12/14/2020 01/02/2023 06/12/2023 Score 15 (present daytime sleepiness) 18 (severe daytime sleepiness) 15 (present daytime sleepiness) PROMIS CAT Sleep Disturbance 12/14/2020 01/02/2023 06/12/2023 PROMIS Sleep Disturbance T-Score 57 (mild) 52 (within normal limits) 51 (within normal limits) PROMIS Sleep Disturbance Percentile 24 % 42 % 46 % Insomnia Severity Index 06/12/2020 12/14/2020 Score 18 15 PHQ-9 04/09/2023 04/09/2023 06/12/2023 Score 9 9 14 PROMIS Global Health - (T-Scores - the mean of general population = 50. Five points is a clinically meaningful difference.) 12/01/2022 03/02/2023 06/12/2023 Physical T-Score 47.7 50.8 50.8 Mental T-Score 45.8 45.8 43.5 PMH, PSH, SH: Reviewed. SLEEP RELATED ROS Review of Systems Respiratory: Negative for difficulty breathing. Cardiovascular: Negative for chest pain and palpitations. Gastrointestinal: Positive for heartburn. Genitourinary: Negative for nocturia. Musculoskeletal: Negative for arthralgias, back pain and myalgias. Neurological: Negative for dizziness and headaches. ALLERGIES Allergen Reactions Eggs [Egg] Other: See Comments gastric distress CURRENT MEDICATIONS: amphetamine-dextroamphetamine XR (ADDERALL XR) 30 mg biphasic capsule Take 1 capsule by mouth once daily for 30 days. Do not start before June 10, 2023. Magnesium Citrate 150mg 90 ct. (Pure Encapsulations) Find your dose-2-8 capsules. Improved constipation but decrease dosing if yo get loose stools. Take at bedtime. PhytoMulti with Iron (Fluidinfo) Take 2 tablets daily with food O.N.E. Rover (Pure Encapsulations) Take 2 capsules by mouth daily with food. Vitamin D [place] (Toura) Take 1 capsule by mouth daily with food. Adreset (Fluidinfo) Stress, blood sugar, thyroid/hormones/adrenals/energy Take 1 capsule by mouth twice daily. Take second dose before 2pm MEDICATION, NON-DATABASE Vitamin D 2000 International Units 1 Collagen 3 gram 3 amphetamine-dextroamphetamine XR (ADDERALL XR) 30 mg 24 hr capsule Take 1 capsule by mouth once daily for 30 days. Do not start before April 08, 2023. amphetamine-dextroamphetamine XR (ADDERALL XR) 30 mg 24 hr capsule Take 1 capsule by mouth once daily for 30 days. Do not start before May 08, 2023. dextroamphetamine-amphetamine (ADDERALL) 10 mg tablet Take 1/2 tablet up to twice daily as needed. dextroamphetamine-amphetamine (ADDERALL) 10 mg tablet Take 1/2 tablet up to twice daily as needed. Do not start before April 08, 2023. dextroamphetamine-amphetamine (ADDERALL) 10 mg tablet Take 1/2 tablet up to twice daily as needed. Do not start before May 08, 2023. pseudoephed/diphenhydramine (ALLERGY & CONGEST RELIEF ORAL) Take by mouth. armodafinil (NUVIGIL) 250 mg tab Take 1 tablet by mouth once daily for 90 days. buPROPion XL (WELLBUTRIN XL) 300 mg 24 hr tablet Take 1 tablet by mouth once daily. Cholecalciferol, Vitamin D3, 25 mcg (1,000 unit) cap Take 2 capsules by mouth once daily. - See above. PHYSICAL EXAMINATION: Vital Signs: BP 101/66 (BP Site: Left Arm, BP Position: Sitting, BP Cuff Size: Regular Adult) Pulse 88 Ht 165.1 cm (5' 5 ) Wt 74.8 kg (165 lb) LMP 12/03/2022 (Approximate) SpO2 97% BMI 27.46 kg/m PHYSICAL EXAM: General appearance: Well appearing, in NAD. Well groomed and maintained. Mental status: Alert and oriented x 3. Constitutional: WNL. ENT : Nasal congestion absent, Nasal valve incompetence absent. Chest: Regular S1 and S2, Lungs clear to auscultation Extremities: WNL. Neuro: No focal deficit. IMPRESSION/PLAN: (G47.11) Hypersomnia, idiopathic Clinical Global Impression of Change ( CGI-C) Compared to the patient's condition at baseline, how much has the patient changed? Very much improved The patient is a 33 year old female presenting to the office with PMH significant for allergic rhinitis, anxiety/depression, KORIN, Reynauds, and Hypersomnia. Here today for follow up in regard to IH and medication management. 12/17/2020, PSG performed. AHI 0.8, supine AHI 0.5, REM AHI 1.5. PLM index 0 and PLM arousal index 0.0. Average SPO2 96% with flori of 93%. Grade 3%. BMI 30.7. 12/18/2020, MSLT performed. Mean sleep latency of 14 minutes and there were 0/5 SOREMPs. She is doing well overall on her stimulant and feels much improved. No longer requiring naps. Currently taking (Adderall XR 30 mg in morning and Adderall 10 mg early afternoon and occasionally will take a second at 5 pm). This is working well for her without S/E. Discussed S/E and precautions with medications. Reviewed ECG, WNL. Stable vitals. Mild weight loss, however she is trying to lose weight and recently had twins, we will monitor. - Continue Adderall XR 30 + Adderall 10 mg. - Refills given for both stimulants (June 2023-September 2023). - ECG due 03/2024. - Dr. Ramírez appointment due 02/2024. - We encourage a healthy lifestyle with adequate sleep (7-8 hours), diet and exercise. - Discussed safe sleeping strategies for both patient and bed partner. - Avoid driving when drowsy. Would recommend that if you are dozing off while driving, that you do not drive until your sleep apnea and sleepiness are appropriately treated. - Avoid the use of alcohol, sedatives, and narcotic pain medication at bedtime - Follow up in 3 months. I spent a total of 35 minutes on the date of the service which included preparing to see the patient, [id number] patient care, completing clinical documentation, obtaining and/or reviewing separately obtained history, performing a medically appropriate examination, counseling and educating the patient/family/caregiver, and ordering medications, tests, or procedures. Rosario Feliz PA-C documented in this encounter [facility] 05-26-2023 Miscellaneous Notes Patient has been identified by name and date of : Yes Last office visit in this department: 03/09/23 virtually NOV 07/08/23 RX INSTRUCTIONS: Patient aware RX will be sent to pharmacy. No need to notify patient. Patient phones requesting refills as follows: Requested Prescriptions Pending Prescriptions Disp Refills amphetamine-dextroamphetamine XR (ADDERALL XR) 30 mg biphasic capsule 30 capsule 0 Sig: Take 1 capsule by mouth once daily for 30 days. Please review and advise. Jackie Chavez MA Patient called the [facility] in regards to appointment on 05/27/2023. Patient states she was unaware that her appointment was cancelled due to change in the provider's schedule. Patent is rescheduled for 06/19/2023 with Rosario Feliz PA-C, but patient's prescription for Adderall will on 06/08/2023. Would Dr. Ramírez be willing to send over short-term supply to help bridge patient to her next appointment? Verified pharmacy on file. Patient does not need a call to let her know if/when RX is sent to pharmacy. Please adviseDeja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 pro-inflammatory genes. This results in reduced inflammation, as well as improvements in the body's response to stress via the hormone cortisol, in the intervention groups vs. the controls. Although more research is needed, these findings suggest a definite role for meditation in the treatment and prevention of chronic inflammatory conditions. Behavioral Health Therapist: If I recommended counseling or individual therapy, please schedule an individual appointment with our Functional Medicine Behavioral Health Therapist SAMUEL AMAYA OR ROCHELLE RICHARDS after your visit today. The Behavioral Health Therapist helps patients identify and understand feelings and behaviors, experience the process of making positive change, and gain healthy coping skills. Health Coaching: Please consider scheduling with our [place] [facility] health coaches for a phone or virtual visit for accountability, goal setting and help with behavior changer fixer the next 6-8 weeks to be successful with your goals. [phone]. Smart phone apps to begin a meditative practice: Headspace (free for first 10 days) Insight Meditation Timer- (Free)-Great all-around nano to use for guided meditations of many different types and lengths or just to use as a tool to time and track your meditation practice. This is my absolute favorite! Calm- (Free) Walking Meditations-($1.99)- Get your walk AND meditation done together. A good way to start out for individuals who feel they just can't sit still to begin a meditative practice. Medications/Supplements Recommended: Orders Placed This Encounter Adreset (Metagenics) Stress, blood sugar, thyroid/hormones/adrenals/energy Sig: Take 1 capsule by mouth twice daily. Take second dose before 2pm Refill: 0 Magnesium Citrate 150mg [address] (Pure Encapsulations) Sig: Find your dose-2-8 capsules. Improved constipation but decrease dosing if yo get loose stools. Take at bedtime. O.N.E. Rover (Pure Encapsulations) Sig: Take 2 capsules by mouth daily with food. PhytoMulti with Iron (Metagenics) Sig: Take 2 tablets daily with food Vitamin D [place] (Toura) Sig: Take 1 capsule by mouth daily with food. I recommend the supplements from the [facility] [employer] Online Store at https://Acsendo/ as we have thoroughly evaluated the research and use only highest quality supplements. [facility] offers an easy to use, convenient way to order supplementation recommended by your provider through the [employer]. All of the products offered are considered high-quality, and adhere to specific criteria for quality and effectiveness including good manufacturing practices, use of clean products, free of fillers, binders, and other antigens. In addition, we follow third constitution party analysis for independent verification of active ingredients. Get started by following three easy steps: Visit the following webpage: [email or web address] [employer] Statements on this site have not been evaluated by the Food and Drug Administration Dr. Derrick Diane is an employee of [facility]. In addition, he is the President of [employer]. [employer] Create an account: Enter your first name, last name, email address which will be your username Create password Select a referring physician from the dropdown box. If they are not listed, select other If you are a new patient, enter the following provider code: functional Order recommended supplementation Enter the supplement name in the search box Add all supplements to your cart and proceed to checkout. Orders of $100 or more qualify for free shipping. *Please allow 5-7 business days for delivery. For issues with your MRN please call [phone] During the next 6-8 weeks you'll be working on your diet plan discussed with our vaccine customer representative, allowing for gentle detoxification and decreasing inflammation - while we are gathering your lab results and combining those with your complete history to formulate a very personalized treatment plan. LAB results: Due to the complexity of the testing performed, we are not able to review labs via Mingyiant or over the phone, but please know, if any of your labs are critical we will contact you. Otherwise, we will review all your labs at your next visit. We will go over a lot of information during your follow up visit. Also make sure to schedule with the vaccine customer representative (this will not happen automatically). Potential future labs: Any [facility] labs ordered take about 4 weeks to return. Do them as soon as possible so that we have the results before your next appointment. You can access them on the [employer] website and it can be beneficial if you review them prior to your next visit. www.[email or web address].net. Read about NutrEval if this was ordered. Catrachita Wallis MD Time spend with patient: I spent 60 minutes of virtual time with the patient. At least 50% of this time was spent preparing to see the patient, [id number] patient care, completing clinical documentation, obtaining and/or reviewing separately obtained history, performing a medically appropriate examination, counseling and educating the patient/family/caregiver, and ordering medications, tests, or procedures documented in this encounter [facility] 03-10-2023 Miscellaneous Notes [employer] message sent to pt to let her know the medication [facility] [place]. Shira Brothers LPN [facility] [place] [facility]. Spoke with [facility] [place] and they have medication. Please see pended order and send in new script. Thank you Shira Brothers LPN documented in this encounter [facility] 03-10-2023 Miscellaneous Notes See TC dated 03/10/23 refill request. Shira Brothers LPN [facility] [place] [facility] [address] has the prescription. Will need to send a new script over as pt is out of medication. Shira Brothers LPN Pt is okay to go to [place] to fill script for Adderall. Shira Brothers LPN documented in this encounter [facility] 03-09-2023 Note HNO ID: [id number] Author: Ramon Ramírez Jr., MD Service: ? Author Type: Physician Type: Progress Notes Filed: 03/09/2023 5:12 PM Note Text: ESTABLISHED PATIENT VISIT (Virtual Visit with Video) For this virtual visit, the patient has been identified by name and (MRN and photo identification as well if available). Those taking part in visit: Patient and physician via [employer]. Consent for this visit received from patient. I have communicated my name and active licensure. The patient's identity and physical location were verified at the time of this visit. Either the patient or their legal product support representative has been informed of the risks and benefits of -- and alternatives to -- treatment through a remote evaluation and consents to proceed with the evaluation remotely. HISTORY OF PRESENT ILLNESS: Yesenia Carter is a 33 year old female, with a PMH significant for and per last sleep center visit note of 01/05/23: Idiopathic hypersomnia (primary encounter diagnosis) On stimulant medication 32 year old female with PMH of IH and depression presents for medication management of hypersomnia. - She reports Armodafinil 250 mg is ineffective, she is sleepy an hour after taking it. - Discussed different tx options. - She would like to try a different stimulant. - Continue Armodafinil 250 mg daily. - Trial of Adderall, 5mg, may take up to 3 tablets daily if needed. If she's still sleepy on 5 mg, can go up to 10-15 mg. - ADRs palpitations, chest pain or jitteriness with the Adderall.discussed with the patient. - Baseline EKG ordered. - Discussed drowsy driving. Follow up in 1 month with JOCELYN hernandez and [address] Ramírez or sooner if needed. Lucien Nelson APRN.REHABILITATION PROGRAM MANAGER Patient feels Adderall helped a lot more than she thought it would. Started with 5mg and did little. Then increase to 10mg and a little bit better. Then increased to 15mg and that helped the best. States would take at about 730AM and then would take another 15mg around noon. Around 5PM would start feeling tiredness come back on. Able to sleep at night. Family noted a significant difference. States did not have any this weekend and had to nap throughout the day. Did discuss change to long acting and pt would be interested. Functional med workup pending. Sleep Questionnaire Data Depression Screening 12/01/2022 01/02/2023 03/02/2023 PHQ-2 Score 3 3 1 PHQ-9 Score 14 13 6 ADALBERTO-2 Total Score 2 - 3 ADALBERTO-7 Total Score 11 - 11 PED PHQ-9 12/01/2022 01/02/2023 03/02/2023 Little interest or pleasure in doing things More than half the days More than half the days Several days Feeling down, depressed, or hopeless Several days Several days Not at all Trouble falling or staying asleep, or sleeping too much Nearly every day Nearly every day Several days Feeling tired or having little energy Nearly every day Nearly every day Several days Poor appetite or overeating More than half the days More than half the days Several days Feeling bad about yourself - or that you are a failure or have let yourself or your family down Several days Not at all Not at all Trouble concentrating on things, such as reading the newspaper or watching television More than half the days More than half the days More than half the days Moving or speaking so slowly that other people could have noticed. Or the opposite - being so fidgety or restless that you have been moving around a lot more than usual Not at all Not at all Not at all Thoughts that you would be better off , or of hurting yourself in some way Not at all Not at all Not at all If you checked off any problems, how difficult have these problems made it for you to do your work, take care of things at home, or get along with other people? Very difficult Very difficult Somewhat difficult PHQ-9 Score 14 (Moderate Depression) 13 (Moderate Depression) 6 (Mild Depression) Wilmot Sleepiness Scale 12/01/2022 01/02/2023 03/02/2023 Score - 18 (severe daytime sleepiness) - REVIEW OF SYSTEMS GENERAL:No weight loss, malaise or fevers. HEENT:Negative for frequent or significant headaches, No changes in hearing or vision, no nose bleeds or other nasal problems NECK:Negative for lumps, goiter, pain and significant neck swelling RESPIRATORY: Negative for cough, wheezing or shortness of breath. CARDIOVASCULAR: Negative for chest pain, leg swelling or palpitations. LAB/IMAGING: Those performed since patient's last visit have been reviewed. WBC (k/uL) Date Value 06/18/2022 6.79 RBC (m/uL) Date Value 06/18/2022 4.83 Hemoglobin (g/dL) Date Value 06/18/2022 14.4 Hematocrit (%) Date Value 06/18/2022 42.7 MCV (fL) Date Value 06/18/2022 88.4 MCH (pg) Date Value 06/18/2022 29.8 MCHC (g/dL) Date Value 06/18/2022 33.7 RDW-CV (%) Date Value 06/18/2022 12.6 Platelet Count (k/uL) Date Value 06/18/2022 232 MPV (fL) Date Value 06/18/2022 10.8 (more content not included)... [facility] 03-09-2023 History of Present illness Narrative ESTABLISHED PATIENT VISIT (Virtual Visit with Video) For this virtual visit, the patient has been identified by name and (MRN and photo identification as well if available). Those taking part in visit: Patient and physician via chris. Consent for this visit received from patient. I have communicated my name and active licensure. The patient's identity and physical location were verified at the time of this visit. Either the patient or their legal product support representative has been informed of the risks and benefits of -- and alternatives to -- treatment through a remote evaluation and consents to proceed with the evaluation remotely. HISTORY OF PRESENT ILLNESS: Yesenia Carter is a 33 year old female, with a PMH significant for and per last sleep center visit note of 01/05/23: Idiopathic hypersomnia (primary encounter diagnosis) On stimulant medication 32 year old female with PMH of IH and depression presents for medication management of hypersomnia. - She reports Armodafinil 250 mg is ineffective, she is sleepy an hour after taking it. - Discussed different tx options. - She would like to try a different stimulant. - Continue Armodafinil 250 mg daily. - Trial of Adderall, 5mg, may take up to 3 tablets daily if needed. If she's still sleepy on 5 mg, can go up to 10-15 mg. - ADRs palpitations, chest pain or jitteriness with the Adderall.discussed with the patient. - Baseline EKG ordered. - Discussed drowsy driving. Follow up in 1 month with mary and [address] Ramírez or sooner if needed. Lucien Nelson APRN.REHABILITATION PROGRAM MANAGER Patient feels Adderall helped a lot more than she thought it would. Started with 5mg and did little. Then increase to 10mg and a little bit better. Then increased to 15mg and that helped the best. States would take at about 730AM and then would take another 15mg around noon. Around 5PM would start feeling tiredness come back on. Able to sleep at night. Family noted a significant difference. States did not have any this weekend and had to nap throughout the day. Did discuss change to long acting and pt would be interested. Functional med workup pending. Sleep Questionnaire Data Depression Screening 12/01/2022 01/02/2023 03/02/2023 PHQ-2 Score 3 3 1 PHQ-9 Score 14 13 6 ADALBERTO-2 Total Score 2 - 3 ADALBERTO-7 Total Score 11 - 11 PED PHQ-9 12/01/2022 01/02/2023 03/02/2023 Little interest or pleasure in doing things More than half the days More than half the days Several days Feeling down, depressed, or hopeless Several days Several days Not at all Trouble falling or staying asleep, or sleeping too much Nearly every day Nearly every day Several days Feeling tired or having little energy Nearly every day Nearly every day Several days Poor appetite or overeating More than half the days More than half the days Several days Feeling bad about yourself - or that you are a failure or have let yourself or your family down Several days Not at all Not at all Trouble concentrating on things, such as reading the newspaper or watching television More than half the days More than half the days More than half the days Moving or speaking so slowly that other people could have noticed. Or the opposite - being so fidgety or restless that you have been moving around a lot more than usual Not at all Not at all Not at all Thoughts that you would be better off , or of hurting yourself in some way Not at all Not at all Not at all If you checked off any problems, how difficult have these problems made it for you to do your work, take care of things at home, or get along with other people? Very difficult Very difficult Somewhat difficult PHQ-9 Score 14 (Moderate Depression) 13 (Moderate Depression) 6 (Mild Depression) Wilmot Sleepiness Scale 12/01/2022 01/02/2023 03/02/2023 Score - 18 (severe daytime sleepiness) - REVIEW OF SYSTEMS GENERAL:No weight loss, malaise or fevers. HEENT:Negative for frequent or significant headaches, No changes in hearing or vision, no nose bleeds or other nasal problems NECK:Negative for lumps, goiter, pain and significant neck swelling RESPIRATORY: Negative for cough, wheezing or shortness of breath. CARDIOVASCULAR: Negative for chest pain, leg swelling or palpitations. LAB/IMAGING: Those performed since patient's last visit have been reviewed. WBC (k/uL) Date Value 06/18/2022 6.79 RBC (m/uL) Date Value 06/18/2022 4.83 Hemoglobin (g/dL) Date Value 06/18/2022 14.4 Hematocrit (%) Date Value 06/18/2022 42.7 MCV (fL) Date Value 06/18/2022 88.4 MCH (pg) Date Value 06/18/2022 29.8 MCHC (g/dL) Date Value 06/18/2022 33.7 RDW-CV (%) Date Value 06/18/2022 12.6 Platelet Count (k/uL) Date Value 06/18/2022 232 MPV (fL) Date Value 06/18/2022 10.8 Glucose (mg/dL) Date Value 06/18/2022 92 BUN (mg/dL) Date Value 06/18/2022 15 Creatinine (mg/dL) Date Value 06/18/2022 0.93 Sodium (mmol/L) Date Value 06/18/2022 138 Potassium (mmol/L) Date Value 06/18/2022 4.2 Chloride (mmol/L) Date Value 06/18/2022 103 CO2 (mmol/L) Date Value 06/18/2022 25 Protein, Total (g/dL) Date Value 06/18/2022 7.1 Albumin (g/dL) Date Value 06/18/2022 4.6 Calcium, Total (mg/dL) Date Value 06/18/2022 9.2 Alkaline Phosphatase (U/L) Date Value 06/18/2022 41 Bilirubin, Total (mg/dL) Date Value 06/18/2022 0.5 AST (U/L) Date Value 06/18/2022 20 ALT (U/L) Date Value 06/18/2022 24 MAX (no units) Date Value 07/02/2022 Positive (A) Rheumatoid Factor (IU/mL) Date Value 08/29/2019 <10 MEDICATIONS: dextroamphetamine-amphetamine (ADDERALL) 5 mg tablet Take one tablet by mouth in am, can increase to 3 tablets. pseudoephed/diphenhydramine (ALLERGY & CONGEST RELIEF ORAL) Take by mouth. armodafinil (NUVIGIL) 250 mg tab Take 1 tablet by mouth once daily for 90 days. buPROPion XL (WELLBUTRIN XL) 300 mg 24 hr tablet Take 1 tablet by mouth once daily. Cholecalciferol, Vitamin D3, 25 mcg (1,000 unit) cap Take 2 capsules by mouth once daily. HISTORIES PAST MEDICAL HISTORY Diagnosis Date Allergic rhinitis Allergic rhinitis due to animal (cat) (dog) hair and dander Chopra palsy Chronic pansinusitis fracture 2004 right arm hockey accident KORIN (obstructive sleep apnea) DME DASCO fx. [phone] Ovarian cyst Psoriasis Ankle Raynauds syndrome Vitiligo Ankle FAMILY HISTORY Problem Relation Age of Onset Seizures Mother other (Sleep Disorders) Mother other (Anemia) Mother Diabetes Father Aneurysm Father Aortic Aneurysm other (Sleep Disorders) Father Cancer Maternal Grandmother Cancer Maternal Grandfather Alzheimer's Disease Paternal Grandmother Diabetes Paternal Grandfather Cancer Paternal Grandfather other (Sleep Disorders) Brother SOCIAL HISTORY Social History Tobacco Use Smoking status: Never Smokeless tobacco: Never Vaping Use Vaping Use: Never used Substance Use Topics Alcohol use: Yes Comment: Rarely, not while Drug use: No PHYSICAL EXAMINATION LMP 12/03/2022 (Approximate) GENERAL EXAM: General appearance: NAD, pleasant. HEENT: NC/AT. NECK: ROM nml. Lungs: No audible cough, wheeze, sob. NEUROLOGICAL EXAM: General: Awake, alert, oriented x3 (person,place,time), speech fluent, no dysarthria; comprehension, naming, repetition intact. CN: EOMI, face symmetric, hearing is intact to finger rub bilaterally, palate and tongue movements are intact and symmetric. SCM and trapezius strength normal. Motor: LUGO equal and symmetric. Coordination: FNF, AUGUSTUS intact. No tremors. Assessment and Plan: ASSESSMENT/PLAN: 1. Hypersomnia, idiopathic - ICD9: 780.54, ICD10: G47.11 Patient with response to Adderall 15mg BID. No SE or ADRs. Having difficulties getting meds due to pharmacies having on backorder. She would prefer if could take once per day. Thus, will transition to Adderall XR 30mg daily. Explained to pt difference between IR and XR dosing. In case necessary, still will provide Adderall IR 10mg that pt can take 1/2 tablet up to twice daily as needed. Given that the IR dose is lasting about 5 hours for pt advised not to take later than 3-4PM. Again, reviewed SE and ADRs. Advised pt not to drive or operate heavy machinery if sleepy. Advised pt to monitor BP and HR with parameters of if BP > sys 140 or HR >90 to contact us. Explained pt need to complete ECG and advised her to call to schedule (order in). Pt will need UDS and adderall confirmation (via urine) next visit in 3 months. Ramon Ramírez MD I spent a total of 32 minutes on the date of the service which included preparing to see the patient, [id number] patient care, completing clinical documentation, obtaining and/or reviewing separately obtained history, performing a medically appropriate examination, counseling and educating the patient/family/caregiver, ordering medications, tests, or procedures, and communicating results to the patient/family/caregiver. PDMP website checked and validated. All prescriptions have been APPROPRIATELY filled. No suspicious activity was identified. 03/09/2023 by Ramon Ramírez MD documented in this encounter [facility] 02-24-2023 Miscellaneous Notes I did not see pt last. Per note of Lucero Nelson CNP: - Trial of Adderall, 5mg, may take up to 3 tablets daily if needed. If she's still sleepy on 5 mg, can go up to 10-15 mg. Thus appears pt not taking inappropriately. If Lucero Nelson ok with it, can continue, but please determine how much and when pt is taking each tablet. Thank you, Ramon Ramírez MD Please inform pt she needs to cut back. Contact with Dr Ramírez regarding dosage. Thanks, Lucien Nelson APRN.MIRACLE Patient Comment: I've been taking 8-9 per day so my prescription won't cover me through my next checkup. TARUN: 01/05/23 In Person - none MD Jossie Ramírez F/U: 03/09/23 IMPRESSION/PLAN: Idiopathic hypersomnia (primary encounter diagnosis) On stimulant medication 32 year old female with PMH of IH and depression presents for medication management of hypersomnia. - She reports Armodafinil 250 mg is ineffective, she is sleepy an hour after taking it. - Discussed different tx options. - She would like to try a different stimulant. - Continue Armodafinil 250 mg daily. - Trial of Adderall, 5mg, may take up to 3 tablets daily if needed. If she's still sleepy on 5 mg, can go up to 10-15 mg. - ADRs palpitations, chest pain or jitteriness with the Adderall.discussed with the patient. - Baseline EKG ordered. - Discussed drowsy driving. Follow up in 1 month with mary and [address] Ramírez or sooner if needed. Lucien Nelson APRN.REHABILITATION PROGRAM MANAGER documented in this encounter [facility] 02-19-2023 Miscellaneous Notes Noted. documented in this encounter [facility] 01-20-2023 Miscellaneous Notes Spoke with insurance and claim was approved for 12 months. Notified pharmacy of approval Appeal needs to expedited for the Adderall or she will have to possible wait to hear in 30 days. She is in need of medication. This is the only number pt has customer service number [phone] Pleas advise pt. Whit Cuellar LPN Patient calling said [facility] wants nurse to call about PA done on Adderall, has questions. Something about different medication PA was done on? Patient said to call [phone]. documented in this encounter [facility] 01-07-2023 Miscellaneous Notes Clinical information given to [facility] regarding Adderall script for 5 mg. Awaiting response in 48-72 business hours. Shira Brothers LPN From Cover my meds: The patient's drug benefit plan provides coverage for other drugs which may be considered for treating your patient. Can your patient's treatment be switched to a formulary drug? [If yes, provide your patient with a new prescription for the formulary product.] Available Formulary Alternatives: amphetamine-dextroamphetamine mixed salts, methylphenidatey. Pt insurance is requiring a Prior Auth for Adderall 5 mg tablet, take 1 tablet PO in the AM, can increase to 3 tablets. Please advise if you would like new script for above alternatives or keep script. Thank you. Shira Brothers LPN Pt calls to report that [facility] advised that Adderall 5 mg needs prior authorization. Simin Neumann LPN documented in this encounter [facility] 01-05-2023 Note HNO ID: [id number] Author: Lucien Nelson APRN.REHABILITATION PROGRAM MANAGER Service: ? Author Type: Nurse Practitioner Type: Progress Notes Filed: 01/05/2023 8:08 PM Note Text: [facility] Virtual Visit Follow up/ Established patient visit Date of last visit :12/05/2022 Assessment and Plan: ASSESSMENT/PLAN: 1. Hypersomnia, idiopathic - ICD9: 780.54, ICD10: G47.11 (primary diagnosis) Patient with continued complaints of EDS, with subjective and objective history not suggesting a disruption of sleep; suggesting that patient is getting adequate sleep time. Family history of hypersomnia. 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 Encouraged pt to continue to follow up with Dr. Iglesias for other possible etiologies (as well as functional medicine). Meanwhile will restart on Armodafinil 250mg QAM. SE and ADRs reviewed with patient. Advised pt not to drive or operate heavy machinery if sleepy. If not responding to Armodafinil, did d/w pt consideration for trial of Ritalin or Adderall. Pt agrees with plan. Ramon Ramírez MD Interval history : Here for follow up for medication follow up. HYPERSOMNIA : Idiopathic Hypersomnia PSG 12/17/20: Normal at that time off PAP therapy. No significant weight change since that time. MSLT 12/18/20: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 with subjective and objective history not suggesting a disruption of sleep; suggesting that patient is getting adequate sleep time. Family history of hypersomnia. 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 Encouraged pt to continue to follow up with Dr. Iglesias for other possible etiologies (as well as functional medicine). Meanwhile will restart on Armodafinil 250mg QAM. SE and ADRs reviewed with patient. Advised pt not to drive or operate heavy machinery if sleepy. If not responding to Armodafinil, did d/w pt consideration for trial of Ritalin or Adderall. Pt agrees with plan. Ramon Ramírez MD I spent a total of 35 minutes on the date of the service which included preparing to see the patient, [id number] patient care, completing clinical documentation, obtaining and/or reviewing separately obtained history, performing a medically appropriate examination, counseling and educating the patient/family/caregiver, ordering medications, tests, or procedures, and communicating results to the patient/family/caregiver. PDMP website checked and validated. All prescriptions have been APPROPRIATELY filled. No suspicious activity was identified. 12/05/2022 by Ramon Ramírez MD documented in this encounter [facility] 07-08-2022 Miscellaneous Notes Pt called and is notified of providers message. Pt reports she already scheduled it this morning. Alcira Nayak RN Please assist patient is setting up for functional medicine consult documented in this encounter [facility] 06-20-2022 Miscellaneous Notes Left detailed message on secure VM. Please let patient know her vitamin D is low so she needs to increase her vit d supplement to 2000 units daily. All other lab work is normal. If her symptoms of fatigue persist, she needs to follow up for further evaluation. Take care Muna Ariza APRN.MIRACLE documented in this encounter [facility] 03-12-2022 History of Present illness Narrative Radiology Service Progress Note PATIENT NAME: Yesenia Carter DATE OF SERVICE: March 12, 2022 TIME: 1:31 PM PATIENT IDENTITY VERIFICATION COMPLETED USING TWO (2) IDENTIFIERS: Name and Date of confirmed by patient verbally. FALL SCREENING: Has the patient had 2 falls in the last year or 1 fall with injury or currently using an Ambulatory Assistive Device (Walker, Cane, Wheelchair, Crutches, etc.)? No PATIENT GENDER DATA: Female. status: : No status: NO. PATIENT RELEVANT IMPLANT DATA REVIEWED: Not Applicable RADIOLOGY DEPARTMENT: Mammography PERIPHERAL IV DATA: Not applicable SIGNED BY: Giana Maldonado [employer] March 12, 2022 1:31 PM documented in this encounter [facility] 03-11-2022 Miscellaneous Notes May we please have bilateral diagnostic mammogram orders placed (per [facility] breast imaging guidelines). Pt is scheduled tomorrow. Thank you very much! Beulah Ingram RDMS documented in this encounter [facility] 03-07-2022 History of Present illness Narrative CC: Patient presents with: Recheck: 2 week follow up HPI Yesenia Carter is a 32 year old female who presents today for follow up on enlarged lymph node. Was seen 2 weeks ago for bilateral axillary lymph node enlargement and neck enlarged lymph nodes as well. By office appointment 2 weeks ago, neck lymph enlargement had completely resolved and axillary lymph nodes were getting smaller. Axillary lymph nodes were never tender and patient denies having any recent infection prior to enlargement. Had twins 2 months ago and has not breast fed in 9 weeks. CBC w/ Diff normal. Saw gynecology shortly after last exam and had a full breast exam without any concern at that time. Patient returns today for noticing a tender pebble feeling in right axillary. Is unsure how long it has been there because she was trying to not irritate her armpits by constantly rubbing them. Patient is a non smoker without any personal history of cancer. Multiple grandparents with lung cancer and all were cigarette smoker. No family history of breast or reproductive cancers, or lymphoma. Denies fever, recent illness, changes lumps or tenderness to breasts. REVIEW OF SYSTEMS General: no fevers, no chills, no night sweats, no recurrent infections, no change in appetite, no change in energy and no significant changes in weight Respiratory: no cough, no wheezing, no shortness of breath, no hemoptysis Cardiovascular: no chest pain, no chest pressure, no palpitations and no swelling Hematologic/Lymph: Negative for prolonged bleeding, bruising easily PAST MEDICAL HISTORY Diagnosis Date Allergic rhinitis Allergic rhinitis due to animal (cat) (dog) hair and dander Chopra palsy Chronic pansinusitis fracture 2003 right arm hockey accident KORIN (obstructive sleep apnea) [facility] [place] fx. [phone] Ovarian cyst Psoriasis Ankle Raynauds syndrome Vitiligo Ankle PAST SURGICAL HISTORY Procedure Laterality Date INSERTION OF IUD 02/06/2017 PAST SURGICAL HISTORY OF Bilateral 02/2018 Balloon Sinoplasty - Dr. Newell UNSPECIFIED ORAL SURGERY PROCEDURE, BY REPORT [place] Teeth ALLERGIES Eggs [Egg] MEDICATIONS gabapentin (NEURONTIN) 100 mg capsule Take 100 mg by mouth three times daily. buPROPion XL (WELLBUTRIN XL) 150 mg 24 hr tablet Take 1 tablet by mouth once daily. Cholecalciferol, Vitamin D3, 1,000 unit cap Take 1 capsule by mouth once daily. FAMILY HISTORY Problem Relation Age of Onset Seizures Mother other (Sleep Disorders) Mother other (Anemia) Mother Diabetes Father Aneurysm Father Aortic Aneurysm other (Sleep Disorders) Father Cancer Maternal Grandmother Cancer Maternal Grandfather Alzheimer's Disease Paternal Grandmother Diabetes Paternal Grandfather Cancer Paternal Grandfather other (Sleep Disorders) Brother Social History Tobacco Use Smoking status: Never Smoker Smokeless tobacco: Never Used Vaping Use Vaping Use: Never used Substance Use Topics Alcohol use: Yes Comment: Rarely, not while Drug use: No PHYSICAL EXAM BP 98/64 Pulse 60 Resp 16 Wt 94.8 kg (209 lb) LMP 04/11/2016 BMI 33.75 kg/m General Appearance: well appearing, in no acute distress, alert Eyes: conjunctiva pink and moist, no icterus, sclera white, non-injected Lungs: Lungs clear to auscultation. No wheezing, rhonchi, rales. Heart: RRR without murmur, gallop, or rubs. No ectopy BUE Extremities: No deformities, edema, skin discoloration, clubbing or cyanosis. Good capillary refill. Axilla: Right - small firm enlarged lymph nod noted on exam. Is tender with palpation. No redness, irritation, or skin changes to area. Left axilla normal. Health maintenance reviewed with patient: HEPATITIS C SCREENING Never done COVID-19 VACCINE(3 - Booster for Pfizer series) due on 08/21/2021 PAP TESTING due on 02/06/2022 DEPRESSION SCREENING due on 04/26/2022 INFLUENZA(Season Ended) due on 07/17/2022 HPV TESTING due on 08/30/2024 DTAP,TDAP,TD(2 - Td or Tdap) due on 10/28/2026 HIV SCREENING Completed MENINGOCOCCAL CONJUGATE Aged Out DATA REVIEWED: Most recent labs ASSESSMENT/PLAN: 1. Enlarged lymph node - ICD9: 785.6, ICD10: R59.9 - Since this has been ongoing and lymph node today is more defined than previous and is tender, it needs further evaluation. - US BREAST LTD RT - Follow up depending on results Prescription instructions reviewed with patient as applicable. Potential red flag symptoms discussed with the patient. Reviewed appropriate action plan to take if red flag symptoms occur. Patient agreeable to treatment plan. Muna Ariza APRN.CNP documented in this encounter [facility] 01-01-2022 Note Yesenia Carter is here for consultation at the request of Jacqueline Alexander MD for: Urologic Problem (Fetus IUDH) History of Presenting Problem: History provided by mom Now 35 weeks. Last week had US and one of two boys had fluid in both kidneys about 7 and 10. Normal amniotic fluid. Delivering next week due to IUGR. Past Medical History: Past Medical History: Diagnosis Date Anxiety disorder Major depressive disorder, single episode History reviewed. No pertinent surgical history. Allergies: No Known Allergies Medications: Outpatient Encounter Medications as of 01/01/2022 Medication Sig Dispense Refill MV-Min-Fe Fum-FA-DHA ( 1 PO) Take by mouth ondansetron (ZOFRAN) 4 MG tablet Take by mouth every 8 hours as needed for Nausea FIBER ADULT GUMMIES PO Take by mouth meclizine (ANTIVERT) 12.5 MG tablet Take by mouth buPROPion (WELLBUTRIN XL) 150 MG XL tablet Take by mouth daily ASPIRIN 81 PO Take by mouth No facility-administered encounter medications on file as of 01/01/2022. Family Medical History: Family History Problem Relation Age of Onset Anemia Mother Diabetes Father Hypertension Father Social History: Social History Socioeconomic History Marital status: Spouse name: Not on file Number of children: Not on file Years of education: Not on file Highest education level: Not on file Occupational History Not on file Tobacco Use Smoking status: Never Smoker Smokeless tobacco: Never Used Substance and Sexual Activity Alcohol use: Not on file Drug use: Not on file Sexual activity: Not on file Other Topics Concern Not on file Social History Narrative Not on file Social Determinants of Health Housing Stability: Not on file Additional History Is the patient on a special diet? No Per parents, immunizations are up to date. Yes Patient lives with? Other /two daughters Review of Systems: A comprehensive review of systems was negative. No fever or cough today. Physical Examination: Vitals: 01/01/22 0959 Weight: (!) 99.8 kg General: Well appearing Eyes: Conjunctivae normal ENT: Ears normal, no nasal discharge Resp: Normal effort, no wheezing Heart: no cyanosis Lymphatic: No obvious lymphadenopathy Musculoskeletal: Normocephalic head, anticipated range of motion Neurologic: grossly normal strength Skin: good color Laboratory Testing: No results found for this visit on 01/01/22. No results found for this or any previous visit. No results found for: CREATININE, BUN, NA, K, CL, CO2 Imaging: - Assessment & Plan: Yesenia was seen today for urologic problem. Diagnoses and all orders for this visit: hydronephrosis during , antepartum, fetus 2 - AMB Referral To Urology Dichorionic diamniotic twin in third trimester - AMB Referral To Urology We discussed the possible causes of hydronephrosis, along with signs/symptoms of obstruction and infection. We reviewed the need to continue to monitor the degree of hydronephrosis with future ultrasounds. Urine test if has fever or lethargy etc. Discussed risk of uerteral reflux (35%) and the risk of UTI. Discussed VCUG and prophylaxis US here when 7-14 days old Recommend circumcision Recommend amoxicillin prophylaxis This is a telemedicine video visit requested by the patient/guardian that was performed with the patient's location at home and the provider's location at office. Cornelius Venegas MD January 01, 2022 [facility] documented as of this encounter (statuses as of 03/07/2022) [facility] History of Past illness Narrative* Problem Noted Date Resolved Date Abnormal glucose complicating 10/29/2002/27/2017 Overview: normal 3 hr. Nadia Jain MD Encounter for supervision of normal first in second trimester [Z34.02] 08/22/2016 02/27/2017 Overview: Girl on us Nausea and vomiting in 06/19/2016 02/27/2017 Overview: 06/19/2016Patient is complaining of nausea and vomiting in . She is currently taking Phenergan and it is giving her some relief. Recommended patient take Vitamin B6. Advised patient to call/come in if she is unable to keep any food or fluids down in a 24-hour period.TKRN Bleeding in early 06/19/201602/14 Overview: 06/19/2016Pt noted spotting on 06/15 and 06/16. She denies any bleeding since then. Denies pain or cramping. Ultrasound was done earlier this morning. Pt reports + cardiac activity. TKRN documented as of this encounter (statuses as of 03/12/2022) [facility] History of Past illness Narrative* Problem Noted Date Resolved Date Abnormal glucose complicating 10/29/20 16 02/27/2017 Overview: normal 3 hr. Nadia Jain MD Encounter for supervision of normal first in second trimester [Z34.02] 08/22/2016 02/27/2017 Overview: Girl on us Nausea and vomiting in 06/19/2016 02/27/2017 Overview: 06/19/2016Patient is complaining of nausea and vomiting in . She is currently taking Phenergan and it is giving her some relief. Recommended patient take Vitamin B6. Advised patient to call/come in if she is unable to keep any food or fluids down in a 24-hour period.TKRN Bleeding in early 06/19/201602/14 Overview: 06/19/2016Pt noted spotting on 06/15 and 06/16. She denies any bleeding since then. Denies pain or cramping. Ultrasound was done earlier this morning. Pt reports + cardiac activity. TKRN documented as of this encounter (statuses as of 03/13/2022) [facility] History of Past illness Narrative* Problem Noted Date Resolved Date Abnormal glucose complicating 10/29/20 16 02/27/2017 Overview: normal 3 hr. Nadia Jain MD Encounter for supervision of normal first in second trimester [Z34.02] 08/22/2016 02/27/2017 Overview: Girl on us Nausea and vomiting in 06/19/2016 02/27/2017 Overview: 06/19/2016Patient is complaining of nausea and vomiting in . She is currently taking Phenergan and it is giving her some relief. Recommended patient take Vitamin B6. Advised patient to call/come in if she is unable to keep any food or fluids down in a 24-hour period.TKRN Bleeding in early 06/19/201602/14 Overview: 06/19/2016Pt noted spotting on 06/15 and 06/16. She denies any bleeding since then. Denies pain or cramping. Ultrasound was done earlier this morning. Pt reports + cardiac activity. TKRN documented as of this encounter (statuses as of 06/20/2022) [facility] History of Past illness Narrative* Problem Noted Date Resolved Date Abnormal glucose complicating 10/29/20 16 02/27/2017 Overview: normal 3 hr. Nadia Jain MD Encounter for supervision of normal first in second trimester [Z34.02] 08/22/2016 02/27/2017 Overview: Girl on us Nausea and vomiting in 06/19/2016 02/27/2017 Overview: 06/19/2016Patient is complaining of nausea and vomiting in . She is currently taking Phenergan and it is giving her some relief. Recommended patient take Vitamin B6. Advised patient to call/come in if she is unable to keep any food or fluids down in a 24-hour period.TKRN Bleeding in early 06/19/201602/14 Overview: 06/19/2016Pt noted spotting on 06/15 and 06/16. She denies any bleeding since then. Denies pain or cramping. Ultrasound was done earlier this morning. Pt reports + cardiac activity. TKRN documented as of this encounter (statuses as of 07/08/2022) [facility] History of Past illness Narrative* Problem Noted Date Resolved Date Abnormal glucose complicating 10/29/20 16 02/27/2017 Overview: normal 3 hr. Nadia Jain MD Encounter for supervision of normal first in second trimester [Z34.02] 08/22/2016 02/27/2017 Overview: Girl on us Nausea and vomiting in 06/19/2016 02/27/2017 Overview: 06/19/2016Patient is complaining of nausea and vomiting in . She is currently taking Phenergan and it is giving her some relief. Recommended patient take Vitamin B6. Advised patient to call/come in if she is unable to keep any food or fluids down in a 24-hour period.TKRN Bleeding in early 06/19/201602/14 Overview: 06/19/2016Pt noted spotting on 06/15 and 06/16. She denies any bleeding since then. Denies pain or cramping. Ultrasound was done earlier this morning. Pt reports + cardiac activity. TKRN documented as of this encounter (statuses as of 12/05/2022) [facility] History of Past illness Narrative* Problem Noted Date Resolved Date Abnormal glucose complicating 10/29/20 16 02/27/2017 Overview: normal 3 hr. Nadia Jain MD Encounter for supervision of normal first in second trimester [Z34.02] 08/22/2016 02/27/2017 Overview: Girl on us Nausea and vomiting in 06/19/2016 02/27/2017 Overview: 06/19/2016Patient is complaining of nausea and vomiting in . She is currently taking Phenergan and it is giving her some relief. Recommended patient take Vitamin B6. Advised patient to call/come in if she is unable to keep any food or fluids down in a 24-hour period.TKRN Bleeding in early 06/19/201602/14 Overview: 06/19/2016Pt noted spotting on 06/15 and 06/16. She denies any bleeding since then. Denies pain or cramping. Ultrasound was done earlier this morning. Pt reports + cardiac activity. TKRN documented as of this encounter (statuses as of 12/09/2022) [facility] History of Past illness Narrative* Problem Noted Date Resolved Date Abnormal glucose complicating 10/29/20 16 02/27/2017 Overview: normal 3 hr. Nadia Jain MD Encounter for supervision of normal first in second trimester [Z34.02] 08/22/2016 02/27/2017 Overview: Girl on us Nausea and vomiting in 06/19/2016 02/27/2017 Overview: 06/19/2016Patient is complaining of nausea and vomiting in . She is currently taking Phenergan and it is giving her some relief. Recommended patient take Vitamin B6. Advised patient to call/come in if she is unable to keep any food or fluids down in a 24-hour period.TKRN Bleeding in early 06/19/201602/14 Overview: 06/19/2016Pt noted spotting on 06/15 and 06/16. She denies any bleeding since then. Denies pain or cramping. Ultrasound was done earlier this morning. Pt reports + cardiac activity. TKRN documented as of this encounter (statuses as of 12/31/2022) [facility] History of Past illness Narrative* Problem Noted Date Resolved Date Abnormal glucose complicating 10/29/20 16 02/27/2017 Overview: normal 3 hr. Nadai Jain MD Encounter for supervision of normal first in second trimester [Z34.02] 08/22/2016 02/27/2017 Overview: Girl on us Nausea and vomiting in 06/19/2016 02/27/2017 Overview: 06/19/2016Patient is complaining of nausea and vomiting in . She is currently taking Phenergan and it is giving her some relief. Recommended patient take Vitamin B6. Advised patient to call/come in if she is unable to keep any food or fluids down in a 24-hour period.TKRN Bleeding in early 06/19/201602/14 Overview: 06/19/2016Pt noted spotting on 06/15 and 06/16. She denies any bleeding since then. Denies pain or cramping. Ultrasound was done earlier this morning. Pt reports + cardiac activity. TKRN documented as of this encounter (statuses as of 01/02/2023) [facility] History of Past illness Narrative* Problem Noted Date Resolved Date Abnormal glucose complicating 10/29/20 16 02/27/2017 Overview: normal 3 hr. Nadia Jain MD Encounter for supervision of normal first in second trimester [Z34.02] 08/22/2016 02/27/2017 Overview: Girl on us Nausea and vomiting in 06/19/2016 02/27/2017 Overview: 06/19/2016Patient is complaining of nausea and vomiting in . She is currently taking Phenergan and it is giving her some relief. Recommended patient take Vitamin B6. Advised patient to call/come in if she is unable to keep any food or fluids down in a 24-hour period.TKRN Bleeding in early 06/19/201602/14 Overview: 06/19/2016Pt noted spotting on 06/15 and 06/16. She denies any bleeding since then. Denies pain or cramping. Ultrasound was done earlier this morning. Pt reports + cardiac activity. TKRN documented as of this encounter (statuses as of 01/06/2023) [facility] History of Past illness Narrative* Problem Noted Date Resolved Date Abnormal glucose complicating 10/29/20 16 02/27/2017 Overview: normal 3 hr. Nadia Jain MD Encounter for supervision of normal first in second trimester [Z34.02] 08/22/2016 02/27/2017 Overview: Girl on us Nausea and vomiting in 06/19/2016 02/27/2017 Overview: 06/19/2016Patient is complaining of nausea and vomiting in . She is currently taking Phenergan and it is giving her some relief. Recommended patient take Vitamin B6. Advised patient to call/come in if she is unable to keep any food or fluids down in a 24-hour period.TKRN Bleeding in early 06/19/201602/14 Overview: 06/19/2016Pt noted spotting on 06/15 and 06/16. She denies any bleeding since then. Denies pain or cramping. Ultrasound was done earlier this morning. Pt reports + cardiac activity. TKRN documented as of this encounter (statuses as of 01/08/2023) [facility] History of Past illness Narrative* Problem Noted Date Resolved Date Abnormal glucose complicating 10/29/20 16 02/27/2017 Overview: normal 3 hr. Nadia Jain MD Encounter for supervision of normal first in second trimester [Z34.02] 08/22/2016 02/27/2017 Overview: Girl on us Nausea and vomiting in 06/19/2016 02/27/2017 Overview: 06/19/2016Patient is complaining of nausea and vomiting in . She is currently taking Phenergan and it is giving her some relief. Recommended patient take Vitamin B6. Advised patient to call/come in if she is unable to keep any food or fluids down in a 24-hour period.TKRN Bleeding in early 06/19/201602/14 Overview: 06/19/2016Pt noted spotting on 06/15 and 06/16. She denies any bleeding since then. Denies pain or cramping. Ultrasound was done earlier this morning. Pt reports + cardiac activity. TKRN documented as of this encounter (statuses as of 02/11/2023) [facility] History of Past illness Narrative* Problem Noted Date Resolved Date Abnormal glucose complicating 10/29/20 16 02/27/2017 Overview: normal 3 hr. Nadia Jain MD Encounter for supervision of normal first in second trimester [Z34.02] 08/22/2016 02/27/2017 Overview: Girl on us Nausea and vomiting in 06/19/2016 02/27/2017 Overview: 06/19/2016Patient is complaining of nausea and vomiting in . She is currently taking Phenergan and it is giving her some relief. Recommended patient take Vitamin B6. Advised patient to call/come in if she is unable to keep any food or fluids down in a 24-hour period.TKRN Bleeding in early 06/19/201602/14 Overview: 06/19/2016Pt noted spotting on 06/15 and 06/16. She denies any bleeding since then. Denies pain or cramping. Ultrasound was done earlier this morning. Pt reports + cardiac activity. TKRN documented as of this encounter (statuses as of 02/19/2023) [facility] History of Past illness Narrative* Problem Noted Date Resolved Date Abnormal glucose complicating 10/29/20 16 02/27/2017 Overview: normal 3 hr. Nadia Jain MD Encounter for supervision of normal first in second trimester [Z34.02] 08/22/2016 02/27/2017 Overview: Girl on us Nausea and vomiting in 06/19/2016 02/27/2017 Overview: 06/19/2016Patient is complaining of nausea and vomiting in . She is currently taking Phenergan and it is giving her some relief. Recommended patient take Vitamin B6. Advised patient to call/come in if she is unable to keep any food or fluids down in a 24-hour period.TKRN Bleeding in early 06/19/201602/14 Overview: 06/19/2016Pt noted spotting on 06/15 and 06/16. She denies any bleeding since then. Denies pain or cramping. Ultrasound was done earlier this morning. Pt reports + cardiac activity. TKRN documented as of this encounter (statuses as of 02/24/2023) [facility] History of Past illness Narrative* Problem Noted Date Resolved Date Abnormal glucose complicating 10/29/20 16 02/27/2017 Overview: normal 3 hr. Nadia Jain MD Encounter for supervision of normal first in second trimester [Z34.02] 08/22/2016 02/27/2017 Overview: Girl on us Nausea and vomiting in 06/19/2016 02/27/2017 Overview: 06/19/2016Patient is complaining of nausea and vomiting in . She is currently taking Phenergan and it is giving her some relief. Recommended patient take Vitamin B6. Advised patient to call/come in if she is unable to keep any food or fluids down in a 24-hour period.TKRN Bleeding in early 06/19/201602/14 Overview: 06/19/2016Pt noted spotting on 06/15 and 06/16. She denies any bleeding since then. Denies pain or cramping. Ultrasound was done earlier this morning. Pt reports + cardiac activity. TKRN documented as of this encounter (statuses as of 03/10/2023) [facility] History of Past illness Narrative* Problem Noted Date Resolved Date Abnormal glucose complicating 10/29/20 16 02/27/2017 Overview: normal 3 hr. Nadia Jain MD Encounter for supervision of normal first in second trimester [Z34.02] 08/22/2016 02/27/2017 Overview: Girl on us Nausea and vomiting in 06/19/2016 02/27/2017 Overview: 06/19/2016Patient is complaining of nausea and vomiting in . She is currently taking Phenergan and it is giving her some relief. Recommended patient take Vitamin B6. Advised patient to call/come in if she is unable to keep any food or fluids down in a 24-hour period.TKRN Bleeding in early 06/19/201602/14 Overview: 06/19/2016Pt noted spotting on 06/15 and 06/16. She denies any bleeding since then. Denies pain or cramping. Ultrasound was done earlier this morning. Pt reports + cardiac activity. TKRN documented as of this encounter (statuses as of 03/10/2023) [facility] History of Past illness Narrative* Problem Noted Date Resolved Date Abnormal glucose complicating 10/29/20 16 02/27/2017 Overview: normal 3 hr. Nadia Jain MD Encounter for supervision of normal first in second trimester [Z34.02] 08/22/2016 02/27/2017 Overview: Girl on us Nausea and vomiting in 06/19/2016 02/27/2017 Overview: 06/19/2016Patient is complaining of nausea and vomiting in . She is currently taking Phenergan and it is giving her some relief. Recommended patient take Vitamin B6. Advised patient to call/come in if she is unable to keep any food or fluids down in a 24-hour period.TKRN Bleeding in early 06/19/201602/14 Overview: 06/19/2016Pt noted spotting on 06/15 and 06/16. She denies any bleeding since then. Denies pain or cramping. Ultrasound was done earlier this morning. Pt reports + cardiac activity. TKRN documented as of this encounter (statuses as of 03/24/2023) [facility] History of Past illness Narrative* Problem Noted Date Resolved Date Abnormal glucose complicating 10/29/20 16 02/27/2017 Overview: normal 3 hr. Nadia Jain MD Encounter for supervision of normal first in second trimester [Z34.02] 08/22/2016 02/27/2017 Overview: Girl on us Nausea and vomiting in 06/19/2016 02/27/2017 Overview: 06/19/2016Patient is complaining of nausea and vomiting in . She is currently taking Phenergan and it is giving her some relief. Recommended patient take Vitamin B6. Advised patient to call/come in if she is unable to keep any food or fluids down in a 24-hour period.TKRN Bleeding in early 06/19/201602/14 Overview: 06/19/2016Pt noted spotting on 06/15 and 06/16. She denies any bleeding since then. Denies pain or cramping. Ultrasound was done earlier this morning. Pt reports + cardiac activity. TKRN documented as of this encounter (statuses as of 03/26/2023) [facility] History of Past illness Narrative* Problem Noted Date Diagnosed Date Resolved Date Abnormal glucose complicating 10/29/2016 02/27/2017 Overview: normal 3 hr. Nadia Jain MD Encounter for supervision of normal first in second trimester [Z34.02] 08/22/2016 0 02/27/2017 Overview: Girl on us Nausea and vomiting in 06/19/2016 02/27/2017 Overview: 06/19/2016Patient is complaining of nausea and vomiting in . She is currently taking Phenergan and it is giving her some relief. Recommended patient take Vitamin B6. Advised patient to call/come in if she is unable to keep any food or fluids down in a 24-hour period.TKRN Bleeding in early 06/19/2016 02/27/2017 Overview: 06/19/2016Pt noted spotting on 06/15 and 06/16. She denies any bleeding since then. Denies pain or cramping. Ultrasound was done earlier this morning. Pt reports + cardiac activity. TKRN documented as of this encounter (statuses as of 05/28/2023) [facility] History of Past illness Narrative* Problem Noted Date Diagnosed Date Resolved Date Abnormal glucose complicating 10/29/2016 02/27/2017 Overview: normal 3 hr. Nadia Jain MD Encounter for supervision of normal first in second trimester [Z34.02] 08/22/2016 0 02/27/2017 Overview: Girl on us Nausea and vomiting in 06/19/2016 02/27/2017 Overview: 06/19/2016Patient is complaining of nausea and vomiting in . She is currently taking Phenergan and it is giving her some relief. Recommended patient take Vitamin B6. Advised patient to call/come in if she is unable to keep any food or fluids down in a 24-hour period.TKRN Bleeding in early 06/19/2016 02/27/2017 Overview: 06/19/2016Pt noted spotting on 06/15 and 06/16. She denies any bleeding since then. Denies pain or cramping. Ultrasound was done earlier this morning. Pt reports + cardiac activity. TKRN documented as of this encounter (statuses as of 06/19/2023) [facility] History of Past illness Narrative* Problem Noted Date Diagnosed Date Resolved Date Abnormal glucose complicating 10/29/2016 02/27/2017 Overview: normal 3 hr. Nadia Jain MD Encounter for supervision of normal first in second trimester [Z34.02] 08/22/2016 0 02/27/2017 Overview: Girl on us Nausea and vomiting in 06/19/2016 02/27/2017 Overview: 06/19/2016Patient is complaining of nausea and vomiting in . She is currently taking Phenergan and it is giving her some relief. Recommended patient take Vitamin B6. Advised patient to call/come in if she is unable to keep any food or fluids down in a 24-hour period.TKRN Bleeding in early 06/19/2016 02/27/2017 Overview: 06/19/2016Pt noted spotting on 06/15 and 06/16. She denies any bleeding since then. Denies pain or cramping. Ultrasound was done earlier this morning. Pt reports + cardiac activity. TKRN documented as of this encounter (statuses as of 06/27/2023) [facility] History of Past illness Narrative* Problem Noted Date Diagnosed Date Resolved Date Abnormal glucose complicating 10/29/2016 02/27/2017 Overview: normal 3 hr. Nadia Jain MD Encounter for supervision of normal first in second trimester [Z34.02] 08/22/2016 0 02/27/2017 Overview: Girl on us Nausea and vomiting in 06/19/2016 02/27/2017 Overview: 06/19/2016Patient is complaining of nausea and vomiting in . She is currently taking Phenergan and it is giving her some relief. Recommended patient take Vitamin B6. Advised patient to call/come in if she is unable to keep any food or fluids down in a 24-hour period.TKRN Bleeding in early 06/19/2016 02/27/2017 Overview: 06/19/2016Pt noted spotting on 06/15 and 06/16. She denies any bleeding since then. Denies pain or cramping. Ultrasound was done earlier this morning. Pt reports + cardiac activity. TKRN documented as of this encounter (statuses as of 07/16/2023) [facility] History of Past illness Narrative* Problem Noted Date Diagnosed Date Resolved Date Abnormal glucose complicating 10/29/2016 02/27/2017 Overview: normal 3 hr. Nadia Jain MD Encounter for supervision of normal first in second trimester [Z34.02] 08/22/2016 0 02/27/2017 Overview: Girl on us Nausea and vomiting in 06/19/2016 02/27/2017 Overview: 06/19/2016Patient is complaining of nausea and vomiting in . She is currently taking Phenergan and it is giving her some relief. Recommended patient take Vitamin B6. Advised patient to call/come in if she is unable to keep any food or fluids down in a 24-hour period.TKRN Bleeding in early 06/19/2016 02/27/2017 Overview: 06/19/2016Pt noted spotting on 06/15 and 06/16. She denies any bleeding since then. Denies pain or cramping. Ultrasound was done earlier this morning. Pt reports + cardiac activity. TKRN documented as of this encounter (statuses as of 07/19/2023) [facility] History of Past illness Narrative* Problem Noted Date Diagnosed Date Resolved Date Abnormal glucose complicating 10/29/2016 02/27/2017 Overview: normal 3 hr. Nadia Jain MD Encounter for supervision of normal first in second trimester [Z34.02] 08/22/2016 0 02/27/2017 Overview: Girl on us Nausea and vomiting in 06/19/2016 02/27/2017 Overview: 06/19/2016Patient is complaining of nausea and vomiting in . She is currently taking Phenergan and it is giving her some relief. Recommended patient take Vitamin B6. Advised patient to call/come in if she is unable to keep any food or fluids down in a 24-hour period.TKRN Bleeding in early 06/19/2016 02/27/2017 Overview: 06/19/2016Pt noted spotting on 06/15 and 06/16. She denies any bleeding since then. Denies pain or cramping. Ultrasound was done earlier this morning. Pt reports + cardiac activity. TKRN documented as of this encounter (statuses as of 08/10/2023) [facility] History of Past illness Narrative* Problem Noted Date Diagnosed Date Resolved Date Abnormal glucose complicating 10/29/2016 02/27/2017 Overview: normal 3 hr. Nadia Jain MD Encounter for supervision of normal first in second trimester [Z34.02] 08/22/2016 0 02/27/2017 Overview: Girl on us Nausea and vomiting in 06/19/2016 02/27/2017 Overview: 06/19/2016Patient is complaining of nausea and vomiting in . She is currently taking Phenergan and it is giving her some relief. Recommended patient take Vitamin B6. Advised patient to call/come in if she is unable to keep any food or fluids down in a 24-hour period.TKRN Bleeding in early 06/19/2016 02/27/2017 Overview: 06/19/2016Pt noted spotting on 06/15 and 06/16. She denies any bleeding since then. Denies pain or cramping. Ultrasound was done earlier this morning. Pt reports + cardiac activity. TKRN documented as of this encounter (statuses as of 09/14/2023) [facility] History of Past illness Narrative* Problem Noted Date Diagnosed Date Resolved Date Abnormal glucose complicating 10/29/2016 02/27/2017 Overview: normal 3 hr. Nadia Jain MD Encounter for supervision of normal first in second trimester [Z34.02] 08/22/2016 0 02/27/2017 Overview: Girl on us Nausea and vomiting in 06/19/2016 02/27/2017 Overview: 06/19/2016Patient is complaining of nausea and vomiting in . She is currently taking Phenergan and it is giving her some relief. Recommended patient take Vitamin B6. Advised patient to call/come in if she is unable to keep any food or fluids down in a 24-hour period.TKRN Bleeding in early 06/19/2016 02/27/2017 Overview: 06/19/2016Pt noted spotting on 06/15 and 06/16. She denies any bleeding since then. Denies pain or cramping. Ultrasound was done earlier this morning. Pt reports + cardiac activity. TKRN documented as of this encounter (statuses as of 09/22/2023) [facility] History of Past illness Narrative* Problem Noted Date Diagnosed Date Resolved Date Abnormal glucose complicating 10/29/2016 02/27/2017 Overview: normal 3 hr. Nadia Jain MD Encounter for supervision of normal first in second trimester [Z34.02] 08/22/2016 0 02/27/2017 Overview: Girl on us Nausea and vomiting in 06/19/2016 02/27/2017 Overview: 06/19/2016Patient is complaining of nausea and vomiting in . She is currently taking Phenergan and it is giving her some relief. Recommended patient take Vitamin B6. Advised patient to call/come in if she is unable to keep any food or fluids down in a 24-hour period.TKRN Bleeding in early 06/19/2016 02/27/2017 Overview: 06/19/2016Pt noted spotting on 06/15 and 06/16. She denies any bleeding since then. Denies pain or cramping. Ultrasound was done earlier this morning. Pt reports + cardiac activity. TKRN documented as of this encounter (statuses as of 10/14/2023) [facility] History of Past illness Narrative* Problem Noted Date Diagnosed Date Resolved Date Abnormal glucose complicating 10/29/2016 02/27/2017 Overview: normal 3 hr. Nadia Jain MD Encounter for supervision of normal first in second trimester [Z34.02] 08/22/2016 0 02/27/2017 Overview: Girl on us Nausea and vomiting in 06/19/2016 02/27/2017 Overview: 06/19/2016Patient is complaining of nausea and vomiting in . She is currently taking Phenergan and it is giving her some relief. Recommended patient take Vitamin B6. Advised patient to call/come in if she is unable to keep any food or fluids down in a 24-hour period.TKRN Bleeding in early 06/19/2016 02/27/2017 Overview: 06/19/2016Pt noted spotting on 06/15 and 06/16. She denies any bleeding since then. Denies pain or cramping. Ultrasound was done earlier this morning. Pt reports + cardiac activity. TKRN documented as of this encounter (statuses as of 10/23/2023) [facility] Enlarged lymph node- Primary Enlargement of lymph nodes [facility] Diagnosis Abnormal mammogram- Primary Abnormal mammogram, unspecified [facility] Diagnosis Abnormal mammogram Abnormal mammogram, unspecified [facility] Diagnosis Vitamin D deficiency Unspecified vitamin D deficiency [facility] Diagnosis Other fatigue- Primary No energy Other malaise and fatigue [facility]* Diagnosis Hypersomnia, idiopathic- Primary Hypersomnia, unspecified Excessive sleepiness Hypersomnia, unspecified documented in this encounter [facility] note* Diagnosis Idiopathic hypersomnia- Primary Hypersomnia, unspecified On stimulant medication documented in this encounter [facility] note* Diagnosis Idiopathic hypersomnia Hypersomnia, unspecified documented in this encounter [facility] note* Diagnosis Hypersomnia, idiopathic- Primary Hypersomnia, unspecified [facility] Diagnosis Hypersomnia, idiopathic Hypersomnia, unspecified documented in this encounter [facility] note* Diagnosis Chronic fatigue- Primary Other malaise and fatigue Tick bite, unspecified site, sequela Exposure to mercury Contact with and (suspected) exposure to other hazardous metals Toxin exposure Contact with and (suspected) exposure to other potentially hazardous substances Constipation, unspecified constipation type Anxiety and depression Dysthymic disorder MAX positive Other and unspecified nonspecific immunological findings Vitamin D deficiency Unspecified vitamin D deficiency documented in this encounter [facility] note* Diagnosis Hypersomnia, idiopathic Hypersomnia, unspecified documented in this encounter [facility] note* Diagnosis Hypersomnia, idiopathic Hypersomnia, unspecified documented in this encounter [facility] note* Diagnosis Orthostatic hypotension- Primary 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 Intestinal dysbiosis Stress Other psychological or physical stress, not elsewhere classified documented in this encounter [facility] note* Diagnosis Other fatigue- Primary Vitamin D deficiency Unspecified vitamin D deficiency Encounter for long-term current use of medication documented in this encounter [facility] note* Diagnosis Hair thinning- Primary Alopecia, unspecified Weight loss Loss of weight Other fatigue Vitamin D deficiency Unspecified vitamin D deficiency Dizziness Dizziness and giddiness documented in this encounter [facility] note* Diagnosis Acute non-recurrent maxillary sinusitis- Primary documented in this encounter [facility] note* Diagnosis Hypersomnia, idiopathic Hypersomnia, unspecified documented in this encounter [facility] note* Diagnosis Depression, unspecified depression type documented in this encounter [facility] note* Diagnosis Positive MAX (antinuclear antibody)- Primary Other and unspecified nonspecific immunological findings Hair thinning Alopecia, unspecified Weight loss Loss of weight Excessive sleepiness Hypersomnia, unspecified Psoriasis Other psoriasis documented in this encounter [facility] for referral (narrative)* Diagnostic Procedure Only (Routine) - Authorized Specialty Diagnoses / Procedures Referred By Delores t Referred To Contact [facility] Diagnoses Enlarged lymph node Procedures US BREAST LTD RT US BREAST UNI REAL TIME WITH IMAGE LIMITED Muna Ariza APRN.CNP [address] [place] [address] [facility] [address] [place] [address] Referral ID Status Reason Start Date Expiration Date Visits Requested Visits Authorized [id number] Authorized Auto-Generat ed Referral 03/07/2022 04/06/2023 1 1 [facility] for referral (narrative)* Diagnostic Procedure Only (Routine) - Closed Specialty Diagnoses / Procedures Referred By Contac t Referred To Contact [facility] Diagnoses Abnormal mammogram Procedures LOREN DIAGNOSTIC BILAT DIAGNOSTIC MAMMOGRAPHY COMPUTER-AIDED DETCJ Natanael Oliver MD [address] [place] [address] [facility] [address] [place] [address] Referral ID Status Reason Start Date Expiration Date V isits Requested Visits Authorized [id number] Closed Auto-Generate d Referral 03/12/2022 04/11/2023 1 1 [facility] for referral (narrative)* Diagnostic Procedure Only (Routine) - Closed Specialty Diagnoses / Procedures Referred By Contac t Referred To Contact [facility] Diagnoses Abnormal mammogram Procedures LOREN DIAGNOSTIC BILAT DIAGNOSTIC MAMMOGRAPHY COMPUTER-AIDED DETCJ Natanael Oliver MD [address] [place] [address] [facility] [address] [place] [address] Referral ID Status Reason Start Date Expiration Date V isits Requested Visits Authorized [id number] Closed Auto-Generate d Referral 03/12/2022 04/11/2023 1 1 [facility] for referral (narrative)* Outpatient Procedure (Routine) - Pending Review Specialty Diagnoses / Procedures Referred By Contac t Referred To Contact [facility] Diagnoses Idiopathic hypersomnia On stimulant medication Procedures ECG COMPLETE ECG ROUTINE ECG W/LEAST 12 LDS W/I&R Lucien Nelson APRN.CNP [address] [place] [address] [facility] [place] [address] [place] [address] Referral ID Status Reason Start Date Expiration Date Visits Requested Visits Authorized [id number] Pending Review Auto-Generat ed Referral 01/05/2023 01/05/2024 1 1 [facility] for visit Narrative* Diagnostic Procedure Only (Routine) - Closed Specialty Diagnoses / Procedures Referred By Delores dobbs Referred To Contact [facility] Diagnoses Abnormal mammogram Procedures LOREN DIAGNOSTIC BILAT DIAGNOSTIC MAMMOGRAPHY COMPUTER-AIDED DETCJ BI Natanael Iglesias MD [address] [place] [address] [facility] [address] [place] [address] Referral ID Status Reason Start Date Expiration Date V isits Requested Visits Authorized [id number] Closed Auto-Generate d Referral 03/12/2022 04/11/2023 1 1 [facility] Summary Purpose Family History No Family History Records FoundNo Family History Records Found Advance Directives No Advanced Directives Records FoundNo Advanced Directives Records Found Reason for Referral Specialty Diagnoses / Procedures Referred By Delores dobbs Referred To Contact Diagnoses Other fatigue No energy Procedures CONSULT TO FUNCTIONAL MEDICINE OFFICE/OUTPATIENT [facility] 60-74 MINUTES Natanael Iglesias MD [address] [place] [address] Referral ID Status Reason Start Date Expiration Date Visits Requested Visits Authorized [id number] Authorized PCP Requested Referral 07/08/2022 07/08/2023 1 1 Specialty Diagnoses / Procedures Referred By Delores dobbs Referred To Contact Diagnoses Excessive sleepiness Hypersomnia, idiopathic Ramírez, Ramon Perez Jr., MD [address] [address] Referral ID Status Reason Start Date Expiration Date V isits Requested Visits Authorized [id number] Pending Review 1 1 Specialty Diagnoses / Procedures Referred By Contac t Referred To Contact Diagnoses Hypersomnia, idiopathic Ramon Ramírez Jr., MD [address] [address] Referral ID Status Reason Start Date Expiration Date Visits Re quested Visits Authorized [id number] Closed 1 1 Specialty Diagnoses / Procedures Referred By Contac t Referred To Contact Diagnoses Hypersomnia, idiopathic SebastienoradyRosario, PA-C [address] [place] [address] Referral ID Status Reason Start Date Expiration Date Visits Re quested Visits Authorized [id number] Closed 1 1 Referral ID Status Reason Start Date Expiration Date Visits Re quested Visits Authorized [id number] Closed 1 1 Referral ID Status Reason Start Date Expiration Date Visits Re quested Visits Authorized [id number] Closed 1 1 Referral ID Status Reason Start Date Expiration Date Visits Re quested Visits Authorized [id number] Closed 1 1 Referral ID Status Reason Start Date Expiration Date Visits Re quested Visits Authorized [id number] Closed 1 1 Referral ID Status Reason Start Date Expiration Date Visits Re quested Visits Authorized [id number] Closed 1 1 Specialty Diagnoses / Procedures Referred By Contac t Referred To Contact Neurology Diagnoses Orthostatic hypotension Procedures CONSULT TO NEUROLOGY OFFICE/OUTPATIENT [facility] 60-74 MINUTES Catrachita Wallis MD [address] [place] [address] Referral ID Status Reason Start Date Expiration Date Visits Requested Visits Authorized [id number] Authorized PCP Requested Referral 06/26/2023 06/25/2024 1 1 Referral ID Status Reason Start Date Expiration Date Visits Re quested Visits Authorized [id number] Closed 1 1 Referral ID Status Reason Start Date Expiration Date Visits Re quested Visits Authorized [id number] Closed 1 1 Referral ID Status Reason Start Date Expiration Date Visits Re quested Visits Authorized [id number] Closed 1 1 Referral ID Status Reason Start Date Expiration Date Visits Re quested Visits Authorized [id number] Closed 1 1 Referral ID Status Reason Start Date Expiration Date Visits Re quested Visits Authorized [id number] Closed 1 1 Referral ID Status Reason Start Date Expiration Date Visits Re quested Visits Authorized [id number] Closed 1 1 Specialty Diagnoses / Procedures Referred By Delores t Referred To Contact Rheumatology Diagnoses Positive MAX (antinuclear antibody) Hair thinning Weight loss Excessive sleepiness Psoriasis Procedures CONSULT TO RHEUM/IMMUN DISEASE OFFICE/OUTPATIENT NEW HIGH MDM 60-74 MINUTES Muna Ariza APRN.REHABILITATION PROGRAM MANAGER [address] [place] [address] Referral ID Status Reason Start Date Expiration Date Visits Requested Visits Authorized [id number] Authorized PCP Requested Referral 10/23/2023 10/22/2024 1 1 Additional Source Comments INFORMATION SOURCE (unrecogn ized section and content) DATE CREATED AUTHOR AUTHOR'S ORGANIZ ATION 10/25/2023 [facility] Source Comments (unrecognize d section and content) In the event this informatio n is protected by the Federal Confidentiality of Alcohol and Drug Abuse Patient Records regulations: The Federal rules restrict any use of the information to criminally investigate or prosecute any alcohol or drug abuse patient.[facility] the event this information is protected by the Federal Confidentiality of Alcohol and Drug Abuse Patient Records regulations: The Federal rules restrict any use of the information to criminally investigate or prosecute any alcohol or drug abuse patient.[facility] the event this information is protected by the Federal Confidentiality of Alcohol and Drug Abuse Patient Records regulations: The Federal rules restrict any use of the information to criminally investigate or prosecute any alcohol or drug abuse patient.[facility] the event this information is protected by the Federal Confidentiality of Alcohol and Drug Abuse Patient Records regulations: The Federal rules restrict any use of the information to criminally investigate or prosecute any alcohol or drug abuse patient.[facility] the event this information is protected by the Federal Confidentiality of Alcohol and Drug Abuse Patient Records regulations: The Federal rules restrict any use of the information to criminally investigate or prosecute any alcohol or drug abuse patient.[facility] the event this information is protected by the Federal Confidentiality of Alcohol and Drug Abuse Patient Records regulations: The Federal rules restrict any use of the information to criminally investigate or prosecute any alcohol or drug abuse patient.[facility] the event this information is protected by the Federal Confidentiality of Alcohol and Drug Abuse Patient Records regulations: The Federal rules restrict any use of the information to criminally investigate or prosecute any alcohol or drug abuse patient.[facility] the event this information is protected by the Federal Confidentiality of Alcohol and Drug Abuse Patient Records regulations: The Federal rules restrict any use of the information to criminally investigate or prosecute any alcohol or drug abuse patient.[facility] the event this information is protected by the Federal Confidentiality of Alcohol and Drug Abuse Patient Records regulations: The Federal rules restrict any use of the information to criminally investigate or prosecute any alcohol or drug abuse patient.[facility] the event this information is protected by the Federal Confidentiality of Alcohol and Drug Abuse Patient Records regulations: The Federal rules restrict any use of the information to criminally investigate or prosecute any alcohol or drug abuse patient.[facility] the event this information is protected by the Federal Confidentiality of Alcohol and Drug Abuse Patient Records regulations: The Federal rules restrict any use of the information to criminally investigate or prosecute any alcohol or drug abuse patient.[facility] the event this information is protected by the Federal Confidentiality of Alcohol and Drug Abuse Patient Records regulations: The Federal rules restrict any use of the information to criminally investigate or prosecute any alcohol or drug abuse patient.[facility] the event this information is protected by the Federal Confidentiality of Alcohol and Drug Abuse Patient Records regulations: The Federal rules restrict any use of the information to criminally investigate or prosecute any alcohol or drug abuse patient.[facility] the event this information is protected by the Federal Confidentiality of Alcohol and Drug Abuse Patient Records regulations: The Federal rules restrict any use of the information to criminally investigate or prosecute any alcohol or drug abuse patient.[facility] the event this information is protected by the Federal Confidentiality of Alcohol and Drug Abuse Patient Records regulations: The Federal rules restrict any use of the information to criminally investigate or prosecute any alcohol or drug abuse patient.[facility] the event this information is protected by the Federal Confidentiality of Alcohol and Drug Abuse Patient Records regulations: The Federal rules restrict any use of the information to criminally investigate or prosecute any alcohol or drug abuse patient.[facility] Hospital[facility] the event this information is protected by the Federal Confidentiality of Alcohol and Drug Abuse Patient Records regulations: The Federal rules restrict any use of the information to criminally investigate or prosecute any alcohol or drug abuse patient.[facility] HospitalIn the event this information is protected by the Federal Confidentiality of Alcohol and Drug Abuse Patient Records regulations: The Federal rules restrict any use of the information to criminally investigate or prosecute any alcohol or drug abuse patient.[facility] HospitalIn the event this information is protected by the Federal Confidentiality of Alcohol and Drug Abuse Patient Records regulations: The Federal rules restrict any use of the information to criminally investigate or prosecute any alcohol or drug abuse patient.[facility] HospitalIn the event this information is protected by the Federal Confidentiality of Alcohol and Drug Abuse Patient Records regulations: The Federal rules restrict any use of the information to criminally investigate or prosecute any alcohol or drug abuse patient.[facility] HospitalIn the event this information is protected by the Federal Confidentiality of Alcohol and Drug Abuse Patient Records regulations: The Federal rules restrict any use of the information to criminally investigate or prosecute any alcohol or drug abuse patient.[facility] HospitalIn the event this information is protected by the Federal Confidentiality of Alcohol and Drug Abuse Patient Records regulations: The Federal rules restrict any use of the information to criminally investigate or prosecute any alcohol or drug abuse patient.[facility] HospitalIn the event this information is protected by the Federal Confidentiality of Alcohol and Drug Abuse Patient Records regulations: The Federal rules restrict any use of the information to criminally investigate or prosecute any alcohol or drug abuse patient.[facility] HospitalIn the event this information is protected by the Federal Confidentiality of Alcohol and Drug Abuse Patient Records regulations: The Federal rules restrict any use of the information to criminally investigate or prosecute any alcohol or drug abuse patient.[facility]In the event this information is protected by the Federal Confidentiality of Alcohol and Drug Abuse Patient Records regulations: The Federal rules restrict any use of the information to criminally investigate or prosecute any alcohol or drug abuse patient.[facility] HospitalIn the event this information is protected by the Federal Confidentiality of Alcohol and Drug Abuse Patient Records regulations: The Federal rules restrict any use of the information to criminally investigate or prosecute any alcohol or drug abuse patient.[facility] HospitalIn the event this information is protected by the Federal Confidentiality of Alcohol and Drug Abuse Patient Records regulations: The Federal rules restrict any use of the information to criminally investigate or prosecute any alcohol or drug abuse patient.[facility] HospitalIn the event this information is protected by the Federal Confidentiality of Alcohol and Drug Abuse Patient Records regulations: The Federal rules restrict any use of the information to criminally investigate or prosecute any alcohol or drug abuse patient.[facility] HospitalIn the event this information is protected by the Federal Confidentiality of Alcohol and Drug Abuse Patient Records regulations: The Federal rules restrict any use of the information to criminally investigate or prosecute any alcohol or drug abuse patient.[facility] Reason for Visit (unrecogniz ed section and content) Reason Comments Orders Reason Comments Results Reason Comments Appointment Reason Comments Excessive Daytime Sleepiness Previously seen in [facility] Specialty Diagnoses / Procedures Referred By Delores t Referred To Contact Diagnoses Excessive sleepiness Procedures CONSULT TO SLEEP MEDICINE - ADULT OFFICE/OUTPATIENT NEW HIGH MDM 60-74 MINUTES Natanael Iglesias MD [address] [place] [address] Referral ID Status Reason Start Date Expiration Date V isits Requested Visits Authorized [id number] Closed PCP Requested Referral 06/17/2022 06/17/2023 1 1 Reason Comments Established Patient Reason Comments Insurance Authorization Reason Comments problem with prior authorization Reason Onset Date Comments Refill Request 02/23/2023 Reason Comments Excessive Daytime Sleepiness Established Patient Reason Onset Date Comments Refill Request Refill Request 03/10/2023 Reason Comments New Patient Reason Onset Date Comments Refill Request 05/11/2023 Refill Request 05/26/2023 Reason Comments Established Patient F/u excessive day ti me sleepiness. Reason Comments Results, Lab Reason Comments Established Patient Excessive hair and w eight loss Reason Comments Sinus Problem Reason Comments Follow Up Reason Onset Date Comments Refill Request 10/14/2023 Reason Comments Recheck for test resutls Care Teams (unrecognized sec tion and content) Photographic Laboratory Supervisor Relationship Specialty Start Date End Date Natanael Iglesias MD [address] [place] [address] PCP - General Internal Medicine 02/18/18 Photographic Laboratory Supervisor Relationship Specialty Start Date End Date Natanael Iglesias MD [address] [place] [address] PCP - General Internal Medicine 02/18/18 Photographic Laboratory Supervisor Relationship Specialty Start Date End Date Natanael Iglesias MD [address] [place] [address] PCP - General Internal Medicine 02/18/18 Photographic Laboratory Supervisor Relationship Specialty Start Date End Date Natanael Iglesias MD [address] [place] [address] PCP - General Internal Medicine 02/18/18 Photographic Laboratory Supervisor Relationship Specialty Start Date End Date Natanael Iglesias MD [address] [place] [address] PCP - General Internal Medicine 02/18/18 Photographic Laboratory Supervisor Relationship Specialty Start Date End Date Natanael Iglesias MD [address] [place] [address] PCP - General Internal Medicine 02/18/18 Photographic Laboratory Supervisor Relationship Specialty Start Date End Date Natanael Iglesias MD [address] [place] [address] PCP - General Internal Medicine 02/18/18 Photographic Laboratory Supervisor Relationship Specialty Start Date End Date Natanael Iglesias MD [address] [place] [address] PCP - General Internal Medicine 02/18/18 Photographic Laboratory Supervisor Relationship Specialty Start Date End Date Natanael Iglesias MD [address] [place] [address] PCP - General Internal Medicine 02/18/18 Photographic Laboratory Supervisor Relationship Specialty Start Date End Date Natanael Iglesias MD [address] [place] [address] PCP - General Internal Medicine 02/18/18 Photographic Laboratory Supervisor Relationship Specialty Start Date End Date Natanael Iglesias MD [address] [place] [address] PCP - General Internal Medicine 02/18/18 Photographic Laboratory Supervisor Relationship Specialty Start Date End Date Nataneal Iglesias MD [address] [place] [address] PCP - General Internal Medicine 02/18/18 Photographic Laboratory Supervisor Relationship Specialty Start Date End Date Natanael Iglesias MD [address] [place] [address] PCP - General Internal Medicine 02/18/18 Photographic Laboratory Supervisor Relationship Specialty Start Date End Date Natanael Iglesias MD [address] [place] [address] PCP - General Internal Medicine 02/18/18 Photographic Laboratory Supervisor Relationship Specialty Start Date End Date Natanael Iglesias MD [address] [place] [address] PCP - General Internal Medicine 02/18/18 Photographic Laboratory Supervisor Relationship Specialty Start Date End Date Natanael Iglesias MD [address] [place] [address] PCP - General Internal Medicine 02/18/18 Photographic Laboratory Supervisor Relationship Specialty Start Date End Date Natanael Iglesias MD [address] [place] [address] PCP - General Internal Medicine 02/18/18 Photographic Laboratory Supervisor Relationship Specialty Start Date End Date Natanael Iglesias MD [address] [place] [address] PCP - General Internal Medicine 02/18/18 Photographic Laboratory Supervisor Relationship Specialty Start Date End Date Natanael Iglesias MD [address] [place] [address] PCP - General Internal Medicine 02/18/18 Photographic Laboratory Supervisor Relationship Specialty Start Date End Date Natanael Iglesias MD [address] [place] [address] PCP - General Internal Medicine 02/18/18 Photographic Laboratory Supervisor Relationship Specialty Start Date End Date Natanael Iglesias MD [address] [place] [address] PCP - General Internal Medicine 02/18/18 Photographic Laboratory Supervisor Relationship Specialty Start Date End Date Natanael Iglesias MD [address] [place] [address] PCP - General Internal Medicine 02/18/18 Photographic Laboratory Supervisor Relationship Specialty Start Date End Date Natanael Iglesias MD [address] [place] [address] PCP - General Internal Medicine 02/18/18 Photographic Laboratory Supervisor Relationship Specialty Start Date End Date Natanael Iglesias MD [address] [place] [address] PCP - General Internal Medicine 02/18/18 Photographic Laboratory Supervisor Relationship Specialty Start Date End Date Natanael Iglesias MD [address] [place] [address] PCP - General Internal Medicine 02/18/18 FOR RECORDS PERTAINING TO PATIENTS WHO ARE OR HAVE BEEN ENROLLED IN A CHEMICAL DEPENDENCY/SUBSTANCEABUSE PROGRAM, SOME INFORMATION MAY BE OMITTED. This clinical summary was aggregated from multiple sources. Caution should be exercised in using it in the provision of clinical care. This summary normalizes information from multiple sources, and as a consequence, information in this document may materially change the coding, format and clinical context of patient data. In addition, data may be omitted in some cases. CLINICAL DECISIONS SHOULD BE BASED ON THE PRIMARY CLINICAL RECORDS. [facility] [employer] [facility]. provides no warranty or guarantee of the accuracy or completeness of information in this document.
[2023-12-04 17:07] LABS: HPV APTIMA, High Risk Negative (Negative)
== END | disposition home or self-care (01) ==
LOC: LABSPEC 15:00
PROVIDERS: PCP Internal Medicine; Referring Provider Nurse Practitioner Women's Health; Visit Provider Nurse Practitioner Women's Health
DX: Z12.4 Encounter for screening for malignant neoplasm of cervix (principal)
CPT/HCPCS: 87624; 88175; G0145

== ENCOUNTER → 2024-10-19 | Outpatient (CLI) | payer BC, SELFPAY ==
[2024-10-19 13:39] LABS: HIV - WCH Non-Reactive (Nonreactive)
[2024-10-20 20:08] LABS: HCV Quant. RNA PCR HCV Not Detected IU/mL (.)
[2024-10-20 21:07] LABS: Chlamydia By Nucleic Acid AMP Negative (Negative); Gonococcus By Nucleic Acid AMP Negative (Negative)
== END | disposition home or self-care (01) ==
LOC: BWCLAB 08:11
PROVIDERS: PCP Internal Medicine; Referring Provider Obstetrics & Gynecology; Visit Provider Obstetrics & Gynecology
DX: N89.8 Other specified noninflammatory disorders of vagina (principal); Z20.2 Contact with and (suspected) exposure to infections with a predominantly sexual mode of transmission
CPT/HCPCS: 36415; 86695; 86696; 86703; 87070; 87186; 87205; 87491; 87522; 87591

== ENCOUNTER → 2024-11-18 | Outpatient (CLI) | payer BC, SELFPAY | END | disposition home or self-care (01) | LOC: LABSPEC 11:35 | PROVIDERS: PCP Internal Medicine; Referring Provider Obstetrics & Gynecology; Visit Provider Obstetrics & Gynecology | DX: R30.0 Dysuria (principal) | CPT/HCPCS: 87086; 87088 ==

== ENCOUNTER → 2025-01-10 | Outpatient (CLI) | payer BC, SELFPAY | END | disposition home or self-care (01) | LOC: BWCLAB 08:29 | PROVIDERS: PCP Internal Medicine; Referring Provider Obstetrics & Gynecology; Visit Provider Obstetrics & Gynecology | DX: Z15.01 Genetic susceptibility to malignant neoplasm of breast (principal) | CPT/HCPCS: 36415 ==